=== PATIENT | female | born 1980 | race Caucasian/White ===

== ENCOUNTER 2019-02-11 20:45 | Emergency (ER) | payer BC, SELFPAY ==
[2019-02-11 20:52] VITALS: BP 152/98; PULSE 95; RESP 18; TEMP 37; O2SAT 95; BMI 30.7
--- NOTE | 2019-02-11 20:54 | XR_ITS ---
XR ankle LT min 3V HISTORY: Pain following injury ITS.REASON: FALL ORDERING PHYSICIAN: Edita Geiger APRN PATIENT AGE: 38 years Comparison: None FINDINGS: There is a nondisplaced avulsion fracture involving the tip of the lateral malleolus with overlying soft tissue swelling. Ankle mortise does not appear widened. IMPRESSION: Nondisplaced avulsion fracture tip of lateral malleolus with soft tissue swelling
--- NOTE | 2019-02-11 20:54 | XR_ITS ---
XR foot LT min 3V HISTORY: Posttraumatic pain ITS.REASON: FALL ORDERING PHYSICIAN: Edita Geiger APRN PATIENT AGE: 38 years COMPARISON: None FINDINGS: No fracture or dislocation. No lytic or blastic change. There is normal mineralization.. The joint spaces are well-preserved. No significant degenerative/arthritic changes. No erosive changes evident. IMPRESSION: Negative, no acute finding
--- NOTE | 2019-02-11 20:54 | XR_ITS ---
XR foot RT min 3V HISTORY: ITS.REASON: FALL ORDERING PHYSICIAN: Edita Geiger APRN PATIENT AGE: 38 years COMPARISON: None FINDINGS: No foot fracture is evident. There is a minimally displaced oblique distal fibular fracture and tiny avulsion fracture at the tip of the medial malleolus as described in the ankle report. IMPRESSION: Negative foot
--- NOTE | 2019-02-11 20:54 | XR_ITS ---
XR ankle RT min 3V HISTORY: Pain following injury ITS.REASON: FALL ORDERING PHYSICIAN: Edita Geiger APRN PATIENT AGE: 38 years Comparison: None FINDINGS: There is a minimally displaced oblique fracture involving the distal shaft of the fibula with the fracture extending medially at the level of the ankle joint. There is minimal lateral displacement of distal fracture fragment x 2 mm. In addition, there is nondisplaced avulsion fracture involving the tip of the medial malleolus. The ankle mortise is preserved. There is soft tissue swelling laterally. IMPRESSION: 1. Minimally displaced oblique fracture distal fibula. 2. Nondisplaced avulsion fracture tip of medial malleolus
[2019-02-11 21:12] VITALS: BP 152/98; PULSE 95; RESP 18; TEMP 37; O2SAT 95; BMI 30.7
--- NOTE | 2019-02-11 22:04 | HMH.EDUTC ---
[facility] [place] Clinical Impression: Ankle fracture Qualifiers: Encounter type: initial encounter Fracture type: closed Laterality: right Qualified Code(s): S82.891A - Other fracture of right lower leg, initial encounter for closed fracture Ankle sprain Qualifiers: Encounter type: initial encounter Involved ligament of ankle: unspecified ligament Laterality: left Qualified Code(s): S93.402A - Sprain of unspecified ligament of left ankle, initial encounter Disposition: Home, Self-Care Condition on Discharge: Good Instructions: How to Use Crutches, Acetaminophen (Alternative Therapy), Ankle Fracture, DI for Ankle Fracture, How To Perform RICE (Rest, Ice, Compress, Elevate), Ibuprofen Additional Instructions: *RICE, Rest the extremity, Ice 15-20 minutes 3-4 times daily, Compress- wear the jose wrap as discussed as much as possible to help reduce swelling and pain, Elevate the extremity when at rest *Jose wrap is for support and help control swelling, use it except in the shower. Be sure that is not to tight but not to loose either *Elevate when resting *Ibuprofen 600-800mg every 6-8 hours as needed for pain an inflammation. If need something more can take Tylenol in between doses of Ibuprofen to help Immediately follow up with your family doctor for new or worsening of symptoms, or no noticeable improvement over the next 3-5 days No weight bearing on right ankle Call Dr Richardson's office first thing in the morning for appointment he wants to see in his office tomorrow 02/12/19 Keep ankle elevated tonight Return if needed Straight to ER if any life threatening symptoms Referrals: Lolita Saunders [Primary Care Provider] - Wil Richardson MD [Staff Physician] - (Call first thing in the morning 02/12/19 for appointment advise them he wanted to see you in the clinic on 02/12/19) Time of Disposition: 22:20 Medical Decision Making - Marvel Inquiry Pt receiving controlled substance: No Marvel was queried for this patient: No Vital Signs: 02/11/19 20:52 02/11/19 21:12 02/11/19 22:19 Temperature 98.6 F 98.6 F 98.6 F Temperature Source Oral Oral Oral Pulse Rate 95 H Pulse Rate [Right] 95 H 95 H Respiratory Rate 18 18 18 Blood Pressure 152/98 H Blood Pressure [Right Arm] 152/98 H 152/98 H Blood Pressure Mean [Right Arm] 116 116 Blood Pressure Source Automatic Cuff Blood Pressure Source [Right Arm] Automatic Cuff Automatic Cuff Blood Pressure Position Sitting Blood Pressure Position [Right Arm] Sitting Sitting 02 Sat by Pulse Oximetry 95 95 Oxygen Delivery Method Room Air Room Air Room Air Orders (Tests/Meds): ED MEDICATIONS Discontinued Medications Generic Name Dose Route Start Last Admin Trade Name Hussain PRN Reason Stop Dose Admin Acetaminophen 650 mg 02/11/19 22:06 02/11/19 22:17 Acetaminophen 325mg Tab PO 02/11/19 22:07 650 mg ONCE ONE Administration ORDERS Category Date Time Status XR ankle LT min 3V Stat Exams 02/11/19 20:54 Taken XR ankle RT min 3V Stat Exams 02/11/19 20:54 Taken XR foot LT min 3V Stat Exams 02/11/19 20:54 Taken XR foot RT min 3V Stat Exams 02/11/19 20:54 Taken - Radiology Data #1 Image(s): Ankle, Foot/Toes, Other (bilateral ankle and foot xrays done) Image Reviewed: Yes I reviewed the patient's radiology image Preliminary Findings: No Fracture Seen Left ankle- negative ankle no acute Right ankle - Right Ankle fracture noted RIght foot no acute Left foot no acute - Physician Consults Physician Consulted: Saleem Time: 21:50 Reason -: Orthopedic Eval/Care Comment/Response: Spoke with Dr Richardson and he looked at xray and agreed with diagnoses of right ankle fracture Advised to place her in short leg splint, no weight bearing keep it elevated and call office first thing in the morning for appointment that he wants to see her tomorrow. - Reevaluation(s) Time: 22:20 Reevaluation #1: +pedal pulse and good color in toes +cap refill after placement
--- NOTE | 2019-02-11 22:09 | ED_ITS ---
[facility] – [place] Clinical Impression: Ankle fracture Qualifiers: Encounter type: initial encounter Fracture type: closed Laterality: right Qualified Code(s): S82.891A - Other fracture of right lower leg, initial encounter for closed fracture Ankle sprain Qualifiers: Encounter type: initial encounter Involved ligament of ankle: unspecified ligament Laterality: left Qualified Code(s): S93.402A - Sprain of unspecified ligament of left ankle, initial encounter Disposition: Home, Self-Care Condition on Discharge: Good Instructions: How to Use Crutches, Acetaminophen (Alternative Therapy), Ankle Fracture, DI for Ankle Fracture, How To Perform RICE (Rest, Ice, Compress, Elevate), Ibuprofen Additional Instructions: *RICE, Rest the extremity, Ice 15-20 minutes 3-4 times daily, Compress- wear the jose wrap as discussed as much as possible to help reduce swelling and pain, Elevate the extremity when at rest *Jose wrap is for support and help control swelling, use it except in the shower. Be sure that is not to tight but not to loose either *Elevate when resting *Ibuprofen 600-800mg every 6-8 hours as needed for pain an inflammation. If need something more can take Tylenol in between doses of Ibuprofen to help Immediately follow up with your family doctor for new or worsening of symptoms, or no noticeable improvement over the next 3-5 days No weight bearing on right ankle Call Dr Richardson's office first thing in the morning for appointment he wants to see in his office tomorrow 02/12/19 Keep ankle elevated tonight Return if needed Straight to ER if any life threatening symptoms Referrals: Lolita Saunders [Primary Care Provider] - Wil Richardson MD [Staff Physician] - (Call first thing in the morning 02/12/19 for appointment advise them he wanted to see you in the clinic on 02/12/19) Time of Disposition: 22:20 Medical Decision Making - Marvel Inquiry Pt receiving controlled substance: No Marvel was queried for this patient: No Vital Signs: 02/11/19 20:52 02/11/19 21:12 02/11/19 22:19 Temperature 98.6 F 98.6 F 98.6 F Temperature Source Oral Oral Oral Pulse Rate 95 H Pulse Rate [Right] 95 H 95 H Respiratory Rate 18 18 18 Blood Pressure 152/98 H Blood Pressure [Right Arm] 152/98 H 152/98 H Blood Pressure Mean [Right Arm] 116 116 Blood Pressure Source Automatic Cuff Blood Pressure Source [Right Arm] Automatic Cuff Automatic Cuff Blood Pressure Position Sitting Blood Pressure Position [Right Arm] Sitting Sitting 02 Sat by Pulse Oximetry 95 95 Oxygen Delivery Method Room Air Room Air Room Air Orders (Tests/Meds): ED MEDICATIONS Discontinued Medications Generic Name Dose Route Start Last Admin Trade Name Freq PRN Reason Stop Dose Admin Acetaminophen 650 mg 02/11/19 22:06 02/11/19 22:17 Acetaminophen 325mg Tab PO 02/11/19 22:07 650 mg ONCE ONE Administration ORDERS Category Date Time Status XR ankle LT min 3V Stat Exams 02/11/19 20:54 Taken XR ankle RT min 3V Stat Exams 02/11/19 20:54 Taken XR foot LT min 3V Stat Exams 02/11/19 20:54 Taken XR foot RT min 3V Stat Exams 02/11/19 20:54 Taken - Radiology Data #1 Image(s): Ankle, Foot/Toes, Other (bilateral ankle and foot xrays done) Image R
[2019-02-11 22:19] VITALS: BP 152/98; PULSE 95; RESP 18; TEMP 37; O2SAT 95
== END 2019-02-11 22:26 | disposition home or self-care (01) ==
PROVIDERS: Emergency Provider Nurse Practitioner; PCP Family Medicine
DX: S82.891A Other fracture of right lower leg, initial encounter for closed fracture (principal); S93.402A Sprain of unspecified ligament of left ankle, initial encounter; X50.1XXA Overexertion from prolonged static or awkward postures, initial encounter; Y92.814 Boat as the place of occurrence of the external cause; Z88.0 Allergy status to penicillin; G43.709 Chronic migraine without aura, not intractable, without status migrainosus
CPT/HCPCS: 29515; 73610; 73630; 99203

== ENCOUNTER → 2019-02-12 15:11 | Outpatient (CLI) | payer BC, SELFPAY ==
--- NOTE | 2019-02-12 15:16 | XR_ITS ---
XR tibia fibula RT 2V CLINICAL INDICATION: Pain following injury ITS.REASON: preop evaluation ORIF rt ankle ORDERING PHYSICIAN: Wil Richardson MD PATIENT AGE: 38 years Comparison: None FINDINGS: There is widening of the proximal fibular shaft which may be due to an old fracture. Please correlate with patient's history. Nondisplaced oblique fracture involves the distal fibula. Artifact is present from an overlying cast. IMPRESSION: 1. Nondisplaced fracture distal fibula. 2. Widening of the proximal fibular shaft suggesting an old fracture.
--- NOTE | 2019-02-12 15:16 | XR_ITS ---
XR knee RT 3V HISTORY: ITS.REASON: right knee pain, non weightbearing ORDERING PHYSICIAN: Wil Richardson MD PATIENT AGE: 38 years COMPARISON: None FINDINGS The knee joint has an unremarkable appearance. There is widening of the proximal shaft of the fibula. This could be due to an old fracture. This is well-circumscribed. Skeletal dysplasia is also a consideration. Please correlate with patient's history. IMPRESSION: 1. Negative knee. 2. Widening of the proximal shaft of the fibula which could be due to an old fracture or skeletal dysplasia
[2019-02-12 16:18] LABS: Basophils # 0.1 K/mm3 (0-0.2); Basophils % 0.6 % (0.1-2.0); Eosinophils # 0.2 K/mm3 (0.0-0.4); Eosinophils % 1.7 % (0.1-12.0); Hematocrit 42.7 % (37.0-47.0); Hemoglobin 14.8 g/dL (12.2-16.2); Lymphocytes % 22.2 % (10-50); Mean Corpuscular HGB Conc 34.7 g/dL (31.8-35.4); Mean Corpuscular Hemoglobin 33.1 pg (27.0-31.2); Mean Corpuscular Volume 95.4 fl (81-99); Mean Platelet Volume 7.7 fl (7.4-10.4); Monocytes # 0.6 K/mm3 (0.1-1.0); Monocytes % 6.3 % (1.7-9.3); Neutrophils # 6.2 K/mm3 (1.8-7.8); Neutrophils % 69.2 % (37.0-80.0); Platelet Count 254 K/mm3 (142-424); Red Blood Count 4.47 M/mm3 (4.20-5.40)
[2019-02-12 17:56] LABS: Anion Gap 13.9 mEq/L (5-15); Blood Urea Nitrogen 9 mg/dL (7-18); Calcium 8.8 mg/dL (8.5-10.1); Carbon Dioxide 28 mmol/L (21.0-32.0); Chloride 103 mmol/L (98-107); Creatinine,Serum 0.69 mg/dL (0.55-1.02); Estimated Glomerular Filt Rate 96 ml/min (>60); GFR (African American) 116 ML/MIN (>60); Glucose 95 mg/dL (74-106); Potassium 3.9 mmoL/L (3.5-5.1); Sodium 141 mmol/L (136-145)
== END ==
PROVIDERS: PCP Family Medicine; Visit Provider Orthopaedic Surgery
DX: Z01.818 Encounter for other preprocedural examination (principal); M25.561 Pain in right knee; S82.891A Other fracture of right lower leg, initial encounter for closed fracture; S93.402A Sprain of unspecified ligament of left ankle, initial encounter
CPT/HCPCS: 36415; 73562; 73590; 80048; 80053; 85025

== ENCOUNTER 2019-02-12 15:49 | Outpatient (RCR) | payer BC, SELFPAY | END 2019-02-12 16:00 | disposition home or self-care (01) | LOC: PT 15:49 | PROVIDERS: Visit Provider Orthopaedic Surgery | DX: S93.402A Sprain of unspecified ligament of left ankle, initial encounter (principal) | CPT/HCPCS: 97760 ==

== ENCOUNTER → 2019-02-22 15:04 | Outpatient (CLI) | payer BC, SELFPAY ==
--- NOTE | 2019-02-22 15:08 | XR_ITS ---
XR ankle RT min 3V HISTORY: ITS.REASON: 1 week follow up ORIF RT ankle, dos 02/15/19 ORDERING PHYSICIAN: Wil Richardson MD PATIENT AGE: 38 years Comparison: 02/15/2019 FINDINGS: Status post ORIF lateral malleolus fracture. Lateral bone plate with multiple screws are present in good position stabilizing the distal fibular fracture. IMPRESSION: Good alignment status post ORIF distal fibular fracture
== END ==
PROVIDERS: PCP Family Medicine; Visit Provider Orthopaedic Surgery
DX: S82.899A Other fracture of unspecified lower leg, initial encounter for closed fracture (principal); Z48.89 Encounter for other specified surgical aftercare
CPT/HCPCS: 73610

== ENCOUNTER 2019-02-22 15:21 | Outpatient (RCR) | payer BC, SELFPAY | END 2019-02-22 15:50 | disposition home or self-care (01) | LOC: PT 15:21 | PROVIDERS: Visit Provider Orthopaedic Surgery | DX: S82.891A Other fracture of right lower leg, initial encounter for closed fracture (principal) | CPT/HCPCS: 97760 ==

== ENCOUNTER → 2019-03-01 14:11 | Outpatient (CLI) | payer BC, SELFPAY ==
--- NOTE | 2019-03-01 14:21 | CT_ITS ---
CT angio chest HISTORY: Chest pain, elevated d-dimer, recent surgery, left-sided chest pain ITS.REASON: CP, ELEVATED DDIMER, RECENT SURGERY ORDERING PHYSICIAN: Lolita Saunders PATIENT AGE: 38 years COMPARISON: None TECHNIQUE: Contrast Used:70ml Optiray 350 Axial images were obtained. Sagittal, and coronal reformatted images are also generated and reviewed. All CT scans at the facility use one or more dose reduction, viz: automated exposure control, ma/kV adjustment per patient size (including targeted exams where dose is matched to indication, i.e. head), or iterative reconstruction technique. FINDINGS: No mediastinal or hilar mass is evident. There is mild degree of motion artifact which somewhat decreases fine detail. No evidence of aortic aneurysm or dissection. No obvious pulmonary embolus. Normal heart size. No evidence of pericardial effusion. There is a small left-sided pleural effusion. No lobar consolidation or collapse. Small noncalcified nodule present in the left lung base nonspecific for millimeters. No acute bony anomalies. IMPRESSION: 1. No evidence of pulmonary embolus or aortic aneurysm. 2. Small left pleural effusion.
== END ==
PROVIDERS: PCP Family Medicine; Visit Provider Family Medicine
DX: R07.9 Chest pain, unspecified (principal); R79.1 Abnormal coagulation profile
CPT/HCPCS: 71275; Q9967

== ENCOUNTER → 2019-03-09 08:28 | Outpatient (CLI) | payer BC, SELFPAY ==
--- NOTE | 2019-03-09 08:33 | XR_ITS ---
XR ankle RT min 3V HISTORY: ITS.REASON: having pain ORDERING PHYSICIAN: Wil Richardson MD PATIENT AGE: 38 years Comparison: None FINDINGS: 02/22/2019. The orthopedic hardware involving the fibula remains stable. The appearance of the osseous structures are stable without acute fracture. The alignment joint space appears normal. Soft tissues are unremarkable. Impression: No change.
== END ==
PROVIDERS: PCP Family Medicine; Visit Provider Orthopaedic Surgery
DX: S82.899A Other fracture of unspecified lower leg, initial encounter for closed fracture (principal)
CPT/HCPCS: 73610

== ENCOUNTER → 2019-04-10 08:26 | Outpatient (CLI) | payer BC, SELFPAY ==
--- NOTE | 2019-04-10 08:30 | XR_ITS ---
XR ankle RT min 3V HISTORY: Follow-up fracture/ORIF ITS.REASON: sp ORIF rt ankle, dos 02/15/19 ORDERING PHYSICIAN: Wil Richardson MD PATIENT AGE: 38 years Comparison: 03/09/2019. FINDINGS: No change status post ORIF of the distal fibula with a lateral bone plate and multiple screws. There is good alignment. Fracture line is still visible. IMPRESSION: No change status post ORIF distal fibula with good alignment
--- NOTE | 2019-04-10 09:53 | XR_ITS ---
XR ankle wt bearing LT min 3V HISTORY: ITS.REASON: pain, weakness ORDERING PHYSICIAN: Wil Richardson MD PATIENT AGE: 38 years Comparison: 02/11/2019 FINDINGS: Nondisplaced avulsion fracture once again noted involving the tip of the lateral malleolus. This is not significantly changed. Soft tissue swelling has improved. IMPRESSION: No change avulsion fracture at the tip of the lateral malleolus
== END ==
PROVIDERS: PCP Family Medicine; Visit Provider Orthopaedic Surgery
DX: S82.891A Other fracture of right lower leg, initial encounter for closed fracture (principal); M25.372 Other instability, left ankle; Z09 Encounter for follow-up examination after completed treatment for conditions other than malignant neoplasm
CPT/HCPCS: 73610

== ENCOUNTER → 2019-05-04 11:41 | Outpatient (CLI) | payer BC, SELFPAY ==
--- NOTE | 2019-05-04 11:45 | XR_ITS ---
PROCEDURE: XR ANKLE RT MIN 3V CLINICAL INDICATION: felt popping/ has pain Pain and bruising lateral side of foot and on top of ankle and foot COMPARISON: from 04/10/2019 from 04/10/2019 FINDINGS: Prior ORIF distal fibular fracture with lateral bone plate with good alignment. No change in the fracture line. No new abnormalities evident. IMPRESSION: No change prior ORIF distal fibula Dictated by: Brian Sharma MD 05/04/2019 12:04 Signed by: <Electronically signed by Brian Sharma MD in [place]> 05/04/2019 12:04
== END ==
PROVIDERS: PCP Family Medicine; Visit Provider Orthopaedic Surgery
DX: M25.571 Pain in right ankle and joints of right foot (principal); Z48.89 Encounter for other specified surgical aftercare
CPT/HCPCS: 73610

== ENCOUNTER → 2019-05-18 15:50 | Outpatient (CLI) | payer BC, SELFPAY | PROVIDERS: PCP Family Medicine; Visit Provider Family Medicine | DX: R40.0 Somnolence (principal) | CPT/HCPCS: G0399 ==

== ENCOUNTER → 2019-06-14 12:50 | Outpatient (CLI) | payer BC, SELFPAY ==
--- NOTE | 2019-06-14 12:52 | MR_ITS ---
PROCEDURE: MR ANKLE LT WO CON CLINICAL INDICATION: LEFT ANKLE PAIN COMPARISON: No exams were available for comparison TECHNIQUE: Routine multi-echo and multiplanar images are obtained. FINDINGS: Joint spaces, alignment and signal from the osseous marrow elements appear normal. There is a small amount of fluid in the tibiotalar joint. The anterior tibiofibular and anterior talofibular ligaments as well as the posterior talofibular ligament appear to be intact. The low signal of the anterior, lateral and medial tendons are intact. Ligaments appear intact. Achilles tendon is normal. There is minimal fluid partially surrounding the posterior tibialis tendon at the tarsal area. There is also some fluid adjacent to the flexor hallucis longus however this can communicate with the tibial talar joint 20 percent of the time and could account for the fluid. The soft tissues of the ankle are otherwise unremarkable. IMPRESSION: Small joint effusion. No definite ligament or tendon tear. Mild tenosynovitis of the posterior tibialis tendon. Dictated by: Garett Varela 06/14/2019 15:04 Electronically signed by Garett Varela in [place] 06/14/2019 15:05
== END ==
PROVIDERS: PCP Family Medicine; Visit Provider Orthopaedic Surgery
DX: M25.572 Pain in left ankle and joints of left foot (principal)
CPT/HCPCS: 73721

== ENCOUNTER → 2019-06-25 15:37 | Outpatient (CLI) | payer BC, SELFPAY ==
--- NOTE | 2019-06-25 15:43 | XR_ITS ---
PROCEDURE: XR ANKLE RT MIN 3V CLINICAL INDICATION: sp ORIF DISTAL fibula Follow-up fracture COMPARISON: Ankle R from 02/11/2019 Ankle L from 02/11/2019 XR ANKLE RT MIN 3V from 05/04/2019 FINDINGS: Bone plate is present of the distal fibula. There is a nondisplaced oblique fracture of the distal shaft of the fibula. That fracture is somewhat less apparent but still visible. Otherwise negative IMPRESSION: Healing nondisplaced fracture distal fibula status post ORIF Dictated by: Brian Sharma MD 06/25/2019 16:45 Electronically signed by Brian Sharma MD in [place] 06/25/2019 16:45
== END ==
PROVIDERS: PCP Family Medicine; Visit Provider Orthopaedic Surgery
DX: S82.891D Other fracture of right lower leg, subsequent encounter for closed fracture with routine healing (principal); Z09 Encounter for follow-up examination after completed treatment for conditions other than malignant neoplasm
CPT/HCPCS: 73610

== ENCOUNTER 2020-12-04 18:03 | Emergency (ER) | payer OTHER, SELFPAY ==
[2020-12-04 18:10] VITALS: BP 187/120; PULSE 102; RESP 22; TEMP 36.6; O2SAT 99; BMI 28.2
--- NOTE | 2020-12-04 18:45 | HMH.EDUTC ---
[facility] [place] Clinical Impression: Abdominal pain Qualifiers: Abdominal location: unspecified location Qualified Code(s): R10.9 - Unspecified abdominal pain Disposition: Still a Patient Condition on Discharge: Good Referrals: Lolita Saunders [Primary Care Provider] - Medical Decision Making - Marvel Inquiry Pt receiving controlled substance: No Marvel was queried for this patient: No Vital Signs: 12/04/20 18:10 Temperature 97.9 F Temperature Source Oral Pulse Rate [Right] 102 H Respiratory Rate 22 Blood Pressure [Right Arm] 187/120 H Blood Pressure Mean [Right Arm] 142 Blood Pressure Source [Right Arm] Automatic Cuff 02 Sat by Pulse Oximetry 99 Oxygen Delivery Method Room Air Orders (Tests/Meds): ORDERS Category Date Time Status Urine Culture Stat Micro 12/04/20 18:20 Received Medical Decision Narrative: Due to symptoms and history of kidney stones patient to transferred to ED for further work up and evaluation Patient agreed to transfer Called ED and spoke with staff and Patient transferred to room 8 [facility] [place] - General Stated complaint: Blood in urine, Pain Time Seen by Provider: 12/04/20 18:15 Mode of Arrival: Family Vehicle Source of Information: Patient Description of Symptoms (Recalled from Triage Doc. by RN): Pt c/o gross hematuria, dysuria, and urinary frequency with poor urine production that started about 12p today. Pt reports a h/o kidney stones and UTI. Pt states she feels like there is something blocking me from peeing and attempts to strain to get little urine out. Pt rates pain at 10/10 on TUGBOAT MATE and when attempting to urinate it is 10 plus . HEENT Symptoms (Recalled from RN notes): No Resp Symptoms (Recalled from RN notes): No Skin Symptoms (Recalled from RN notes): No MS Symptoms (Recalled from RN notes): No Functional Status (Recalled from RN notes): na - History of Present Illness Provider Complaint: Patient state that around noon today she started having pain and pressure in her lower abdomen and feeling like she was having urgency and frequency State that she thought she may be getting a UTI so she took an AZO and called her PCP and made appointment for tomorrow States that as the day went on it continued to get worse States that feels like something was blocking her from peeing State that she started feeling like she was peeing razorblades and passing blood clots States that she has a history of kidney stones and had to have it broken up States that pain is 10/10 and 10+ Statse that when she urinates she has to strain and felt like she was going to pass out - Related Data Home Medications Medication Instructions Recorded Confirmed Citalopram Hydrobromide 20 mg PO DAILY 02/11/19 06/28/19 [Citalopram HBr] SUMAtriptan succinate [Imitrex] 100 mg PO DIRECTED 02/11/19 06/28/19 estradiol 0.5 mg tablet 0.5 mg PO #30 tab 04/10/19 06/28/19 tizanidine 4 mg capsule 4 mg PO #30 cap 04/10/19 06/28/19 topiramate 100 mg capsule,extended PO #30 cap 04/10/19 06/28/19 release 24 hr hydroxychloroquine 200 mg tablet 200 mg PO DAILY 06/26/19 06/28/19 Infliximab [Remicade] 100 mg IV . 12/04/20 12/04/20 Meloxicam 7.5 mg PO DAILY 12/04/20 12/04/20 Allergies Allergy/AdvReac Type Severity Reaction Status Date / Time ertapenem [From INVANZ] Allergy Unknown Verified 06/28/19 15:47 erythromycin base Allergy Unknown Verified 06/28/19 15:47 [ERYTHROMYCIN BASE] Penicillins [PENICILLINS] Allergy Unknown Hives Verified 06/28/19 15:47 - Worker's Comp Is this a Worker's Comp case?: No [facility] History - Hepatitis A Screen Drug use history?: No High risk sexual behaviors?: No History of sexually transmitted infection?: No Currently employed?: No Childcare worker?: No Do you have indoor plumbing?: Yes Do you have electricity?: Yes Attestation statement:: This patient has been screened for Hepatitis A risk factors. I have reviewed the patient's past medical histo
[2020-12-04 18:55] VITALS: BP 177/117; PULSE 97; RESP 18; TEMP 36.6; O2SAT 96; BMI 28.2
--- NOTE | 2020-12-04 19:02 | CT_ITS ---
PROCEDURE: CT ABDOMEN PELVIS WO CON CLINICAL INDICATION: PAIN Lower abdominal pain and pressure, pelvic pain, passing blood clots, suprapubic pain and pressure, feeling bloated COMPARISON: CT ABDPELW/O CT ABD PELVIS W/O CONTRAST from 11/15/2012 TECHNIQUE: Axial images obtained with sagittal and coronal reformats. All CT scans at the facility use one or more dose reduction, viz: automated exposure control, ma/kV adjustment per patient size (including targeted exams where dose is matched to indication, i.e. head), or iterative reconstruction technique. FINDINGS: LOWER THORAX: Stable 4 mm nodule right lower lobe ABDOMEN & PELVIS: The liver, spleen, adrenal glands, pancreas has an unremarkable appearance. No renal or ureteral calculi. 2 cm hypodensity of the left kidney suggestive of a renal cyst. Mild amount of retained colonic feces. Prior appendectomy. Prior hysterectomy. No intestinal obstruction or free air. There is mild thickening of the urinary bladder wall with minimal haziness of the perivesical fat which may indicate cystitis. No acute bony findings. Prior fusion at L5-S1 with inter pedicular screws There is some minimal sub chondral sclerosis involving the right femoral head.. IMPRESSION: 1. Possible cystitis. 2. Mild amount of retained colonic feces. 3. Minimal subcortical sclerosis of the right femoral head raising the suspicion avascular necrosis. MRI may confirm. Dictated by: Brian Sharma MD 12/05/2020 05:05 Brian Sharma MD in [place] 12/05/2020 05:05
[2020-12-04 19:17] LABS: Apearance,Urine Clear (Clear); Color,Urine Dark Yellow (Yellow)
[2020-12-04 19:18] LABS: Bilirubin,Urine 3+ (Negative); Blood, Urine 1+ (Negative); Glucose,Urine (UA) 250 (Negative); Ketones,Urine 1+ (Negative); Protein,Urine 1+ (Negative); Specific Gravity, Urine 1.015 (1.005-1.030)
[2020-12-04 19:19] LABS: UTC Leukocyte Esterase,Urine 3+ (Negative); UTC Nitrate,Urine Positive (Negative); Urobilinogen,Urine >=8 EU/dl (0.2)
[2020-12-04 19:26] LABS: Basophils # 0.1 K/mm3 (0-0.2); Basophils % 0.4 % (0.1-2.0); Eosinophils # 0.2 K/mm3 (0.0-0.4); Eosinophils % 1.5 % (0.1-12.0); Hematocrit 44.7 % (37.0-47.0); Hemoglobin 15.2 g/dL (12.2-16.2); Lymphocytes # 3.6 K/mm3 (0.7-4.5); Lymphocytes % 26.1 % (10-50); Mean Corpuscular Hemoglobin 31.5 pg (27.0-31.2); Mean Corpuscular Volume 92.5 fl (81-99); Mean Platelet Volume 7.9 fl (7.4-10.4); Monocytes # 0.6 K/mm3 (0.1-1.0); Monocytes % 4.2 % (1.7-9.3); Neutrophils # 9.3 K/mm3 (1.8-7.8); Neutrophils % 67.8 % (37.0-80.0); Platelet Count 261 K/mm3 (142-424); Red Blood Count 4.83 M/mm3 (4.20-5.40); Red Cell Distribution Width 12.7 % (11.5-17.5); White Blood Count 13.7 K/mm3 (4.8-10.8)
[2020-12-04 19:30] LABS: Chloride 107 mmol/L (98-107); Potassium 3.4 mmoL/L (3.5-5.1); Sodium 140 mmol/L (136-145)
[2020-12-04 19:32] LABS: Alanine Aminotransferase 32 U/L (12-78); Aspartate Amino Transferase 27 U/L (14-36); Blood Urea Nitrogen 16 mg/dl (7-17); Creatinine Clearance Estimated 95 mL/min (50-200); Estimated Glomerular Filt Rate 62 ml/min (>60); GFR (African American) 75 ML/MIN (>60)
[2020-12-04 19:33] LABS: Albumin Level 5.1 g/dl (3.5-5.0); Albumin/Globulin Ratio 1.7 (1.1-1.8); Alkaline Phosphatase 83 U/L (38-126); Anion Gap 14.4 mEq/L (5-15); Bilirubin,Total 0.6 mg/dl (0.2-1.3); Calcium 9.7 mg/dl (8.4-10.2); Carbon Dioxide 22 mmol/L (22.0-30.0); Glucose 95 mg/dl (74-100); Total Protein,Serum 8.1 g/dl (6.3-8.2)
--- NOTE | 2020-12-04 20:42 | HMH.EDUROGF ---
ED Disposition Clinical Impression: Abdominal pain Qualifiers: Abdominal location: unspecified location Qualified Code(s): R10.9 - Unspecified abdominal pain Urinary tract infection Qualifiers: Urinary tract infection type: site unspecified Hematuria presence: without hematuria Qualified Code(s): N39.0 - Urinary tract infection, site not specified Disposition: Home, Self-Care Condition on Discharge: Good Instructions: DI for Urinary Tract Infection (UTI) Additional Instructions: call pcp for culture report and follow up Prescriptions: levoFLOXacin [Levaquin 500mg tab] 500 mg PO DAILY #7 tab Transmission Status: Pending to [facility] # Phenazopyridine HCl [Pyridium 200mg Tablet] 200 pow PO TID #6 tab Transmission Status: Pending to [facility] # Referrals: Lolita Saunders [Primary Care Provider] - - Critical Care Critical Care Time: No Attestation: On 12/04/20, the high probability of a clinically significant, sudden or life threatening deterioration of the following system(s) required my full and direct attention, intervention and personal management. The time I documented below is in addition to time spent performing reported procedures but includes the following listed in this critical care notation. Medical Decision Making - Medical Records Medical records reviewed: Yes: I reviewed the patient's medical records. - Marvel Inquiry Pt receiving controlled substance: No Vital Signs: 12/04/20 18:10 12/04/20 18:55 Temperature 97.9 F 98 F Temperature Source Oral Oral Pulse Rate [Right] 102 H 97 H Respiratory Rate 22 18 Blood Pressure [Right Arm] 187/120 H 177/117 H Blood Pressure Mean [Right Arm] 142 137 Blood Pressure Source [Right Arm] Automatic Cuff Blood Pressure Position [Right Arm] Sitting 02 Sat by Pulse Oximetry 99 96 Oxygen Delivery Method Room Air Room Air - Lab Data Lab results reviewed: Yes: I reviewed the patient's lab results. Lab Results 12/04/20 18:14: Urine Color Dark yellow, Urine Appearance Clear, Urine pH 5.0, Ur Specific [place] 1.015, Urine Protein 1+, Urine Glucose (UA) 250, Urine Ketones 1+, Urine Blood 1+, Urine Nitrate Positive A, Urine Bilirubin 3+ A, Urine Urobilinogen >=8, Ur Leukocyte Esterase 3+ A 12/04/20 19:20: WBC 13.7 H, RBC 4.83, Hgb 15.2, Hct 44.7, MCV 92.5, MCH 31.5 H, MCHC 34.0, RDW 12.7, Plt Count 261, MPV 7.9, Neut % (Auto) 67.8, Lymph % (Auto) 26.1, [place] % (Auto) 4.2, Eos % (Auto) 1.5, Baso % (Auto) 0.4, Neut # (Auto) 9.3 H, Lymph # (Auto) 3.6, [place] # (Auto) 0.6, Eos # (Auto) 0.2, Baso # (Auto) 0.1 12/04/20 19:20: Sodium 140, Potassium 3.4 L, Chloride 107, Carbon Dioxide 22, Anion Gap 14.4, BUN 16, Creatinine 1.00, Estimated Creat Clear 95, Estimated GFR 62, Est GFR ( Amer) 75, Glucose 95, Calcium 9.7, Total Bilirubin 0.6, AST 27, ALT 32, Alkaline Phosphatase 83, Total Protein 8.1, Albumin 5.1 H, Globulin 3.0, Albumin/Globulin Ratio 1.7 Result diagrams: 12/04/20 19:20 12/04/20 19:20 Orders (Tests/Meds): ED MEDICATIONS Generic Name Dose Route Start Last Admin Trade Name Freq PRN Reason Stop Dose Admin Sodium Chloride 1,000 mls @ 999 mls/hr 12/04/20 19:15 Sod Chlor 0.9% 1000ml Bag IV 12/04/20 20:15 .Q1H1M REGINA Levofloxacin/Dextrose 750 mg in 150 mls @ 100 mls/hr 12/04/20 20:40 Levofloxacin 750mg/150ml Premix IV 12/04/20 22:09 ONCE ONE Protocol Discontinued Medications Generic Name Dose Route Start Last Admin Trade Name Freq PRN Reason Stop Dose Admin Ketorolac Tromethamine 30 mg 12/04/20 19:04 12/04/20 19:26 Ketorolac 30mg/Ml Vial IV 12/04/20 19:05 30 mg ONCE ONE Administration Ondansetron HCl 4 mg 12/04/20 19:03 12/04/20 19:26 Ondansetron 4mg/2ml Vial IV 12/04/20 19:04 4 mg ONCE ONE Administration ORDERS Category Date Time Status CT abdomen pelvis wo con Stat Cat Scan 12/04/20 19:02 Taken Urinalysis and Microscopic Stat Lab 11/11
[2020-12-04 21:16] VITALS: BP 159/101; PULSE 71; RESP 16; TEMP 36.7; O2SAT 98
== END 2020-12-04 21:22 | disposition home or self-care (01) ==
LOC: UTC 18:10 → ER 18:52
PROVIDERS: Nurse Practitioner; Emergency Provider Emergency Medicine; PCP Family Medicine
DX: N30.01 Acute cystitis with hematuria (principal); K21.9 Gastro-esophageal reflux disease without esophagitis; F41.8 Other specified anxiety disorders; I10 Essential (primary) hypertension; Z88.0 Allergy status to penicillin; Z79.899 Other long term (current) drug therapy
CPT/HCPCS: 74176; 80053; 81003; 85025; 87086; 87088; 87186; 96365; 96367; 96375; 99283; J1956; J2405

== ENCOUNTER 2023-09-20 10:47 | Outpatient (CLI) | payer BC, SELFPAY ==
--- NOTE | 2023-09-20 10:57 | US_ITS ---
PROCEDURE: US TRANSVAGINAL CLINICAL INDICATION: R/O Ovarian Cysts COMPARISON: No exams were available for comparison FINDINGS: Transvaginal sonographic images of the pelvis were obtained. UTERUS: Surgically absent The vaginal cuff is intact. LEFT OVARY: 2.6 cmx1.4cmx1.6cm with a volume of 3ml. There is a small follicle measuring 1.1 cm x 0.7 cm. RIGHT OVARY: Surgically absent Left ovary is seen and appears normal. Doppler flow to the left ovary is seen. There is no fluid in the cul-de-sac. IMPRESSION: 1. The uterus is surgically absent. The vaginal cuff is intact. 2. The left ovary is visualized and has a small 1.1 cm follicle. 3. The right ovary is surgically absent. 4. No fluid in the cul-de-sac. Dictated by: Dalton Rodriguez MD 09/20/2023 15:04 Dalton Rodriguez MD in OV 09/20/2023 15:04
== END 2023-09-20 23:59 ==
LOC: RAD 10:48
PROVIDERS: PCP Family Medicine; Visit Provider Nurse Practitioner Obstetrics & Gynecology
DX: R10.32 Left lower quadrant pain (principal)
CPT/HCPCS: 76830

== ENCOUNTER 2023-12-02 07:49 | Emergency (ER) | payer BC, SELFPAY ==
[2023-12-02] VITALS (9 sets, daily range): BP systolic 125–151; BP diastolic 61–106; PULSE 69–102; RESP 15–20; TEMP 36.5–36.6; O2SAT 95–100; BMI 28.4
--- NOTE | 2023-12-02 08:08 | CT_ITS ---
FINAL REPORT CLINICAL HISTORY: left pleuritic cp, on estrogen FINDINGS: Thin section axial CT images of the chest were obtained with contrast. 3D reformatted images were also obtained. This study was performed with techniques to keep radiation doses as low as reasonably achievable (ALARA). Individualized dose reduction techniques using automated exposure control or adjustment of mA and/or kV according to the patient's size were employed. There is no evidence of pulmonary embolism. There is no evidence of thoracic aortic aneurysm or dissection. 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 This soft tissue measures up to 32 mm in transverse dimension. There is mild bibasilar atelectasis. Small left pleural effusion is identified. There is no pericardial effusion. Limited images of the upper abdomen are unremarkable. IMPRESSION: No evidence of pulmonary embolism. 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 Findings are worse than previous. This could be further evaluated with follow-up CT in 3-6 months. Reviewed, Interpreted and Dictated by Perry Ayers III, MD Transcribed by Tisha Gaspar Authenticated and [facility]
--- NOTE | 2023-12-02 08:08 | CT_ITS ---
FINAL REPORT TECHNIQUE: After the administration of intravenous contrast, axial images were obtained through the abdomen and pelvis by computed tomography. This study was performed with technique to keep radiation doses as low as reasonably achievable, (ALARA). Individualized dose reduction techniques using automated exposure control or adjustment of the MA and/or KV according to the patient's size were employed. CLINICAL HISTORY: LUQ abd pain, n/v COMPARISON: 11/14/2020 FINDINGS: Abdomen: Mild atelectasis is seen at the lung bases. The liver is normal in size and attenuation. Patient is status postcholecystectomy. The spleen is unremarkable. The adrenals are normal. The pancreas is unremarkable. There is an 18 mm cyst in the posterior left kidney. Several other, less than 1 cm left renal cysts are also seen. The kidneys otherwise enhance appropriately. The aorta is normal in caliber. There is no free fluid or adenopathy. Pelvis: There are postoperative changes of right hip arthroplasty. The appendix is not identified as likely surgically absent. The urinary bladder is unremarkable. There is a 27 mm left ovarian cyst. There is no free fluid or adenopathy. IMPRESSION: No acute intra-abdominal process. Renal cysts. 27 mm left ovarian cyst. Reviewed, Interpreted and Dictated by Perry Ayers III, MD Transcribed by Kenzie Singh Authenticated and [facility]
--- NOTE | 2023-12-02 08:09 | HMH.EDGENADL ---
Discharge Plan Disposition Patient Disposition: Still a Patient Prescriptions Prescriptions: New promethazine 25 mg tablet 25 mg PO TID PRN (Reason: nausea and vomiting) 5 Days Qty: 20 0RF No Action tramadol 50 mg tablet 50 mg PO BID PRN trazodone 100 mg tablet 100 mg PO sumatriptan succinate 100 mg tablet 100 mg PO .COMPLEX Qty: 14 1RF Rx Instructions: 100 mg PO; nitrofurantoin monohyd/m-cryst [Macrobid] 100 mg capsule 100 mg PO BID Qty: 10 6RF Rx Instructions: must administer with a meal/food phenazopyridine [Pyridium] 100 mg tablet 100 mg PO QPC Qty: 10 6RF tizanidine 4 mg capsule 4 mg PO HS PRN (Reason: back spams) Qty: 30 cholecalciferol (vitamin D3) 25 mcg (1,000 unit) capsule 25 mcg PO DAILY lisinopril 10 mg tablet 20 mg PO montelukast 10 mg tablet 10 mg PO DAILY Patient Comments: TAKE ONE TABLET BY MOUTH DAILY escitalopram oxalate [Lexapro] 10 mg tablet 10 mg PO DAILY Qty: 30 5RF estradiol [Estrace] 1 mg tablet 2 mg PO DAILY Qty: 30 11RF valacyclovir 1 gram tablet 1,000 mg PO DAILY Qty: 12 0RF Referrals Follow up/Referrals: Lolita Saunders [Primary Care Provider] - See instructions Activity Restrictions/Add. Instructions Additional Instructions/Restrictions: No emergent medical condition identified today. Incidental finding as stated below from the CT read from the radiologist. I recommend that you follow-up with your primary care doctor to discuss this. Additionally please follow-up with your GI doctor to discuss this abdominal discomfort that is been plaguing you for the last 5 to 6 weeks. 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 Findings are worse than previous. This could be further evaluated with follow-up CT in 3-6 months. Clinical Impressions Clinical Impression: Left upper quadrant abdominal pain Discharge ED Provider: Karin Cronin General Adult HPI General Chief complaint: PAIN Stated complaint: Pain in L side rib area Time Seen by Provider: 12/02/23 08:00 Mode of Arrival: Ambulatory Source of Information: Patient Limitations: No Limitations Description of Symptoms (Recalled from ER Triage Doc. by RN): Patient reports left rib pain for months. States it became constant approx 1 week ago and she has began vomiting. History of Present Illness HPI narrative: Patient is a 43-year-old female presenting today with left upper quadrant/left pleuritic chest pain that is intermittent for the last month and has been consistent and constant over the last week associate with nausea and vomiting. States the pain is also severe. She is on estradiol. No history of DVT or PE no lower extremity swelling hemoptysis cough fevers chills etc. She states she has a history of constipation but this pain is much worse than that has been in the past. No history of any colon pathology that she is aware of. She has a history of hemochromatosis, lupus, and rheumatoid arthritis. She is on rituximab infusions. Related Data Home Medications Medication Instructions Recorded Confirmed cholecalciferol (vitamin D3) 25 25 mcg PO DAILY 12/31/20 09/30/23 mcg (1,000 unit) capsule tizanidine 4 mg capsule 4 mg PO HS PRN back spams #30 caps 09/14/22 09/30/23 tramadol 50 mg tablet 50 mg PO BID PRN 09/14/22 09/30/23 trazodone 100 mg tablet 100 mg PO 09/14/22 09/30/23 montelukast 10 mg tablet 10 mg PO DAILY 04/19/23 09/30/23 lisinopril 10 mg tablet 20 mg PO 08/24/23 09/30/23 Previous Rx's Medication Instructions Recorded sumatriptan succinate 100 mg tablet 100 mg PO .COMPLEX #14 tabs 09/14/22 escitalopram oxalate 10 mg tablet 10 mg PO DAILY #30 tabs 08/24/23 (Lexapro) nitrofurantoin 100 mg PO BID #10 caps 09/29/23 monohydrate/macrocrystals 100 mg capsule (Macrobid) phenazopyridine 100 mg tablet 100 mg PO QPC 1 dose #10 tabs 09/29/23 (Pyridium) estradiol 1 mg tablet (Estrace) 2 mg (2 x 1 mg) PO DAILY #30 tabs 10/03/23 valacyclovir 1 gram tablet 1,000 mg PO DAILY #12 tabs 11/11/23 promethazine 25 mg tablet 25 mg PO TID PRN nausea and 12/02/23 vomiting 5 days #20 tabs Allergies Allergy/AdvReac Type Severity Reaction Status Date / Time ertapenem [From INVANZ] Allergy Unknown Verified 09/30/23 14:45 erythromycin base Allergy Unknown Verified 09/30/23 14:45 [ERYTHROMYCIN BASE] Penicillins [PENICILLINS] Allergy Unknown Hives Verified 09/30/23 14:45 [facility] Disclaimer: The information contained in this section may have been updated after the patient was seen, as this information can be updated by other users. Medical History Migraine Rheumatoid arthritis Right otitis media Surgical History History of ankle surgery History of right hip replacement History of tonsillectomy and adenoidectomy Hx of breast reduction, elective Hx of section Hx of discectomy Hx of hysterectomy Family History Other No significant family history Social History Smoking Status: Unknown if ever smoked alcohol intake: current substance use type: denies use current occupational status: employed Travel in the last 8 weeks: Inside the [place] household members: family housing: house current occupation: [employer] current occupational exposures/hazards: No caffeine: Yes ROS Obtained: Yes All systems reviewed & no additional complaints except as documented Physical Exam General General appearance: alert and in no apparent distress Chest Chest inspection: Present tenderness (Left inferior lateral rib wall margins are tender) Respiratory Respiratory exam: Present normal lung sounds bilaterally; Absent respiratory distress Cardiovascular Cardiovascular exam: Present regular rate Abdominal Exam Abdominal exam: Present soft and tenderness (Left upper quadrant tenderness palpation); Absent distention Back Exam Back exam: Present CVA tenderness (L) Neurological Exam Neurological exam: Present alert and oriented X3 Medical Decision Making Marvel Inquiry Pt receiving controlled substance: No Vital Signs: 12/02/23 07:50 12/02/23 08:25 12/02/23 09:54 Temperature 97.7 F Temperature Source Oral Pulse Rate 86 69 Pulse Rate [Radial] 102 H Respiratory Rate 18 Blood Pressure 125/87 125/61 Blood Pressure [Right Arm] 151/106 H Blood Pressure Mean 99 82 Blood Pressure Mean [Right Arm] 121 Blood Pressure Source [Right Arm] Automatic Cuff Blood Pressure Position [Right Arm] Sitting 02 Sat by Pulse Oximetry 100 95 99 Oxygen Delivery Method Room Air Room Air Room Air 12/02/23 10:00 12/02/23 10:15 12/02/23 10:30 Temperature Temperature Source Pulse Rate 70 70 69 Pulse Rate [Radial] Respiratory Rate Blood Pressure Blood Pressure [Right Arm] Blood Pressure Mean Blood Pressure Mean [Right Arm] Blood Pressure Source [Right Arm] Blood Pressure Position [Right Arm] 02 Sat by Pulse Oximetry 100 98 98 Oxygen Delivery Method 12/02/23 10:45 12/02/23 10:53 Temperature Temperature Source Pulse Rate 71 77 Pulse Rate [Radial] Respiratory Rate 20 Blood Pressure 126/70 Blood Pressure [Right Arm] Blood Pressure Mean 88 Blood Pressure Mean [Right Arm] Blood Pressure Source [Right Arm] Blood Pressure Position [Right Arm] 02 Sat by Pulse Oximetry 97 97 Oxygen Delivery Method Lab Data Lab results reviewed: Yes I reviewed the patient's lab results. Lab Results 12/02/23 08:03: WBC 7.9, RBC 4.89, Hgb 11.8 L, Hct 37.9, MCV 77.5 L, MCH 24.1 L, MCHC 31.1 L, RDW 18.0 H, Plt Count 360, MPV 8.3, Neut % (Auto) 67.5, Lymph % (Auto) 23.1, [place] % (Auto) 6.5, Eos % (Auto) 2.1, Baso % (Auto) 0.8, Neut # (Auto) 5.3, Lymph # (Auto) 1.8, [place] # (Auto) 0.5, Eos # (Auto) 0.2, Baso # (Auto) 0.1, Sodium 138, Potassium 4.1, Chloride 106, Carbon Dioxide 32 H, Anion Gap 4.1 L, BUN 11, Creatinine 0.80, Estimated Creat Clear 115, Estimated GFR 79, Est GFR ( Amer) 95, Glucose 95, Calcium 9.3, Total Bilirubin 0.4, AST 29, ALT 22, Alkaline Phosphatase 96, Total Protein 7.0, Albumin 4.3, Globulin 2.7, Albumin/Globulin Ratio 1.6, Lipase 79, Serum HCG, Qual Negative 12/02/23 08:13: Urine Color Yellow, Urine Appearance Cloudy, Urine pH 6.0, Ur Specific [place] >= 1.030, Urine Protein 2+, Urine Glucose (UA) Negative, Urine Ketones Negative, Urine Blood Negative, Urine Nitrate Negative, Urine Bilirubin 1+ A, Urine Urobilinogen 0.2, Ur Leukocyte Esterase Trace, Urine RBC None, Urine WBC Occasional, Ur Squamous Epith Cells 10-20, Urine Bacteria 1+, Urine Mucus Trace 12/02/23 08:03 12/02/23 08:03 Orders (Tests/Meds): ED MEDICATIONS Discontinued Medications Generic Name Dose Route Start Last Admin Trade Name Hussain PRN Reason Stop Dose Admin Lactated Ringer's 1,000 mls @ 999 mls/hr 12/02/23 08:15 12/02/23 08:23 Lactated Ringer's 1000 Ml Bag IV 12/02/23 09:15 999 mls/hr .Q1H1M REGINA Administration Iopamidol 100 ml 12/02/23 08:44 12/02/23 09:15 Iopamidol-370 (76%);100ml Bottle IV 12/02/23 08:45 100 ml ONCE ONE Administration Morphine Sulfate 4 mg 12/02/23 08:07 12/02/23 08:26 Morphine 4mg/Ml Syringe IV 12/02/23 08:08 4 mg ONCE ONE Administration Ondansetron HCl 4 mg 12/02/23 08:07 12/02/23 08:26 Ondansetron 4mg/2ml Vial IV 12/02/23 08:08 4 mg ONCE ONE Administration Promethazine HCl 12.5 mg 12/02/23 09:01 12/02/23 09:09 Promethazine Hcl 25mg/Ml 1ml Vial IV 12/02/23 09:02 12.5 mg ONCE ONE Administration Sodium Chloride 50 ml 12/02/23 08:44 12/02/23 09:14 0.9 % Sodium Chloride 50 Ml Vial IV 12/02/23 08:45 50 ml ONCE ONE Administration Sodium Chloride 10 ml 12/02/23 08:44 12/02/23 09:15 Sodium Chloride 0.9% 10ml Syr (Rad Only) IV 12/02/23 08:45 10 ml ONCE ONE Administration Sodium Chloride 25 ml 12/02/23 09:01 12/02/23 09:08 Sodium Chloride 0.9% 25ml Bag IV 12/02/23 09:02 25 ml ONCE ONE Administration ORDERS Category Date Time Status CT abdomen pelvis w con Stat Cat Scan 12/02/23 08:[address] angio chest PE protocol Stat Cat Scan 12/02/23 08:08 Taken CBC w/Auto Diff [Complete Blood Count Auto Diff] Stat Lab 12/02/23 08:03 Completed CMP [Comprehensive Metabolic Panel] Stat Lab 12/02/23 08:03 Completed HCG Qualitative, Serum Stat Lab 12/02/23 08:03 Completed Lipase Stat Lab 12/02/23 08:03 Completed UA [Urinalysis and Microscopic] Stat Lab 12/02/23 08:13 Completed Medical Decision Narrative: Patient is a 43-year-old female with a history of rheumatoid arthritis, lupus, hemochromatosis presenting today with left upper quadrant abdominal pain. Differential includes colitis, diverticulitis, constipation, splenic infarction, pulmonary infarction and pulmonary embolism, peripheral pneumonia, pyelo etc. Will get a contrasted CT scan of the patient's abdomen as well as a CT PE to further differentiate this. IV fluids pain medicine nausea medicine have been administered and will reassess. Reassessment 1056 patient did require an additional dose of Phenergan for nausea but her nausea is adequately controlled with this. A prescription of Phenergan has been sent to her pharmacy. Serial abdominal exams are benign CT scans performed which I personally interpreted and there is no evidence of a pulmonary embolism peripheral infarction pneumonia etc. There is also no evidence of an intra-abdominal pathology. 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 She is aware of this. She was discharged in stable and improved condition. She will follow-up with her GI doctor regarding this chronic abdominal discomfort that she is dealing with. No indication for admission or further surgical intervention from an emergency standpoint. Critical Care Critical Care Time Critical Care Time: No
[2023-12-02 08:18] LABS: Basophils # 0.1 K/mm3 (0-0.2); Basophils % 0.8 % (0.1-2.0); Eosinophils # 0.2 K/mm3 (0.0-0.4); Eosinophils % 2.1 % (0.1-12.0); Hematocrit 37.9 % (37.0-47.0); Hemoglobin 11.8 g/dL (12.2-16.2); Lymphocytes # 1.8 K/mm3 (0.7-4.5); Lymphocytes % 23.1 % (10-50); Mean Corpuscular HGB Conc 31.1 g/dL (31.8-35.4); Mean Corpuscular Hemoglobin 24.1 pg (27.0-31.2); Mean Corpuscular Volume 77.5 fl (81-99); Mean Platelet Volume 8.3 fl (7.4-10.4); Monocytes # 0.5 K/mm3 (0.1-1.0); Monocytes % 6.5 % (1.7-9.3); Neutrophils # 5.3 K/mm3 (1.8-7.8); Neutrophils % 67.5 % (37.0-80.0); Platelet Count 360 K/mm3 (142-424); Red Blood Count 4.89 M/mm3 (4.20-5.40); White Blood Count 7.9 K/mm3 (4.8-10.8)
[2023-12-02 08:20] LABS: Chloride 106 mmol/L (98-107); Potassium 4.1 mmoL/L (3.5-5.1); Sodium 138 mmol/L (136-145)
[2023-12-02 08:20] LABS: Microscopic, Urine URINE MICROSCOPIC (MICROSCOPIC)
[2023-12-02 08:22] LABS: Alanine Aminotransferase 22 U/L (12-78); Alkaline Phosphatase 96 U/L (38-126); Aspartate Amino Transferase 29 U/L (14-36); Bilirubin,Total 0.4 mg/dl (0.2-1.3); Blood Urea Nitrogen 11 mg/dl (7-17); Creatinine Clearance Estimated 115 mL/min (50-200); Estimated Glomerular Filt Rate 79 ml/min (>60); GFR (African American) 95 ML/MIN (>60)
[2023-12-02 08:23] LABS: Albumin Level 4.3 g/dl (3.5-5.0); Albumin/Globulin Ratio 1.6 (1.1-1.8); Anion Gap 4.1 mEq/L (5-15); Calcium 9.3 mg/dl (8.4-10.2); Carbon Dioxide 32 mmol/L (22.0-30.0); Globulin 2.7 g/dL (1.3-3.2); Glucose 95 mg/dl (74-100); Lipase 79 U/L (23-300)
[2023-12-02] MEDS: LACTATED RINGERS 1000ML 1,000 ML 999 ML IV (08:23)
[2023-12-02 08:24] LABS: HCG Qualitative, Serum Negative (Negative)
[2023-12-02 08:26] LABS: Appearance,Urine CLOUDY (Clear); Blood, Urine Negative (Negative); Color,Urine YELLOW (Yellow); Glucose,Urine (UA) Negative (Negative); Ketones,Urine Negative (Negative); Leukocyte Esterase,Urine TRACE (Negative); Nitrate,Urine Negative (Negative); Protein,Urine 2+ (Negative); Specific Gravity, Urine >= 1.030 (1.005-1.030); Urobilinogen,Urine 0.2 EU/dl (0.2)
[2023-12-02] MEDS: MORPHINE 4MG/ML SYRINGE 4 MG IV (08:26)
[2023-12-02] MEDS: ONDANSETRON 4MG/2ML VIAL 4 MG IV (08:26)
[2023-12-02 08:30] LABS: Bilirubin,Urine 1+ (Negative)
[2023-12-02 08:31] LABS: Bacteria,Urine 1+ /lpf; Mucus,Urine Trace /lpf; WBC,Urine Occasional #/hpf (0-3)
[2023-12-02] MEDS: SODIUM CHLORIDE 0.9% 25ML BAG 25 ML IV (09:08)
[2023-12-02] MEDS: PROMETHAZINE HCL 25MG/ML 1ML VIAL 12.5 MG IV (09:09)
[2023-12-02] MEDS: 0.9 % SODIUM CHLORIDE 50 ML VIAL IV (09:14)
[2023-12-02] MEDS: SODIUM CHLORIDE 0.9% 10ML SYR (RAD ONLY) 10 ML IV (09:15)
[2023-12-02] MEDS: IOPAMIDOL-370 (76%);100ML BOTTLE 100 ML IV (09:15)
--- NOTE | 2023-12-02 09:55 | PC.NURSE ---
rounded on pt at this time. provided pt with warm blanket, placed bp cuff and oxygen monitor on pt. no needs voiced at this time. call light within reach.
--- NOTE | 2023-12-02 10:15 | PC.NURSE ---
Called radiology to check status of ct reads. She is going to check and call ER back.
== END 2023-12-02 11:08 | disposition home or self-care (01) ==
PROVIDERS: Emergency Provider Student in an Organized Health Care Education/Training Program; PCP Family Medicine
DX: R10.12 Left upper quadrant pain (principal); R07.81 Pleurodynia; M06.9 Rheumatoid arthritis, unspecified; E83.119 Hemochromatosis, unspecified
CPT/HCPCS: 71275; 74177; 80053; 81001; 83690; 84703; 85025; 96361; 96374; 96375; 99285; J2405; Q9967

== ENCOUNTER 2024-02-28 14:47 | Outpatient (CLI) | payer BC, SELFPAY ==
--- NOTE | 2024-02-28 14:55 | MR_ITS ---
FINAL REPORT TECHNIQUE: Multiplanar MR without contrast CLINICAL HISTORY: BACK PAIN RIGHT SIDED PAIN NKI FINDINGS: Sagittal images show normal vertebral height. Alignment is normal. Marrow signal pattern is unremarkable. L1-2: Mild diffuse disc bulge. L2-3: Unremarkable L3-4: Mild diffuse disc bulge with mild bilateral neural foraminal narrowing. L4-5: Mild diffuse disc bulge and ligamentum flavum hypertrophy. Mild central canal stenosis. Moderate left and mild right neural foraminal narrowing. L5-S1: Status post laminectomy and fusion without canal stenosis. IMPRESSION: Degenerative disease, most pronounced at L4-5. Reviewed, Interpreted and Dictated by Leon Cardona MD Transcribed by Tisha Gaspar Authenticated and . [facility]
== END 2024-02-28 23:59 | disposition home or self-care (01) ==
LOC: RAD 14:47
PROVIDERS: PCP Family Medicine; Visit Provider Family Medicine
DX: M54.50 Low back pain, unspecified (principal)
CPT/HCPCS: 72148

== ENCOUNTER 2024-04-12 13:24 | Outpatient (POV) | payer BC, SELFPAY | END 2024-04-12 23:59 | disposition home or self-care (01) | LOC: SC 13:25 | PROVIDERS: Visit Provider Specialist/Technologist | DX: Z00.00 Encounter for general adult medical examination without abnormal findings (principal) ==

== ENCOUNTER 2024-08-30 08:59 | Emergency (ER) | payer BC, SELFPAY ==
[2024-08-30 09:00] VITALS: BP 171/109; PULSE 109; RESP 20; TEMP 36.2; O2SAT 99; BMI 29.0
--- NOTE | 2024-08-30 09:07 | PC.NURSE ---
DR ALAS AT BEDSIDE
--- NOTE | 2024-08-30 09:15 | CT_ITS ---
FINAL REPORT TECHNIQUE: Thin section axial CT with coronal and sagittal reconstruction without contrast. This study was performed with techniques to keep radiation doses as low as reasonably achievable, (ALARA). Individualized dose reduction techniques using automated exposure control or adjustment of mA and/or kV according to the patient''s size were employed. CLINICAL HISTORY: fall on pavement, facial/head injury COMPARISON: None FINDINGS: No fracture is seen. Alignment is normal. There is minimal degenerative disc disease in lower cervical spine. No obvious bony spinal canal stenosis is present. No gross disk abnormalities are seen. IMPRESSION: No fracture or malalignment Reviewed, Interpreted and Dictated by Leon Cardona MD Transcribed by Izzy Wall Authenticated and [facility]
--- NOTE | 2024-08-30 09:15 | CT_ITS ---
FINAL REPORT TECHNIQUE: Thin section axial CT with coronal reconstruction without IV contrast This study was performed with techniques to keep radiation doses as low as reasonably achievable, (ALARA). Individualized dose reduction techniques using automated exposure control or adjustment of mA and/or kV according to the patient's size were employed. CLINICAL HISTORY: fall on pavement, facial/head injury COMPARISON: None FINDINGS: CT FACIAL BONES: No fracture is present. The TMJs are intact. There is a mucous retention cyst in the inferior right maxillary sinus. There are postoperative changes of the maxillary sinuses bilaterally. There is mild nasal septal deviation to the left. IMPRESSION: No evidence of acute facial fracture Reviewed, Interpreted and Dictated by Leon Cardona MD Transcribed by Laurita Babcock Authenticated and [facility]
--- NOTE | 2024-08-30 09:15 | CT_ITS ---
FINAL REPORT TECHNIQUE: Noncontrast exam. Coronal and sagittal reconstructions were obtained and reviewed. This study was performed with techniques to keep radiation doses as low as reasonably achievable, (ALARA). Individualized dose reduction techniques using automated exposure control or adjustment of mA and/or kV according to the patient''s size were employed. CLINICAL HISTORY: fall on pavement, facial/head injury COMPARISON: None FINDINGS: No abnormal density is seen. Ventricles are normal. There is no hemorrhage. No mass effect is seen. Bone windows show no evidence of fracture. IMPRESSION: No acute findings Reviewed, Interpreted and Dictated by Leon Cardona MD Transcribed by Izzy Wall Authenticated and [facility]
--- NOTE | 2024-08-30 09:16 | ED_ITS ---
Discharge Plan Disposition Patient Disposition: Home, Self-Care Condition: Good Prescriptions Prescriptions: No Action tramadol 50 mg tablet 50 mg PO BID PRN trazodone 100 mg tablet 100 mg PO sumatriptan succinate 100 mg tablet 100 mg PO .COMPLEX Qty: 14 1RF Rx Instructions: 100 mg PO; tizanidine 4 mg capsule 4 mg PO HS PRN (Reason: back spams) Qty: 30 montelukast 10 mg tablet 10 mg PO DAILY Patient Comments: TAKE ONE TABLET BY MOUTH DAILY duloxetine 60 mg capsule,delayed release(DR/EC) 60 mg PO DAILY Patient Comments: TAKE 1 CAPSULE BY MOUTH DAILY omeprazole 40 mg capsule,delayed release(DR/EC) 40 mg PO BID Patient Comments: TAKE 1 CAPSULE BY MOUTH TWICE DAILY lisdexamfetamine [Vyvanse] 20 mg capsule 20 mg PO DAILY Patient Comments: TAKE 1 CAPSULE BY MOUTH DAILY cyanocobalamin (vitamin B-12) 1,000 mcg/mL solution 1,000 mcg IM WEEKLY Qulipta 60 mg tablet 60 mg PO DAILY Patient Comments: TAKE 1 TABLET BY MOUTH DAILY azelastine 137 mcg (0.1 %) spray,non-aerosol 2 spray intranasal BID Qty: 30 3RF Rx Instructions: administer into each nostril escitalopram oxalate 10 mg tablet See Rx Instructions .ROUTE .COMPLEX Qty: 30 5RF Dose Instruction: TAKE 1 TABLET BY MOUTH DAILY Rx Instructions: TAKE 1 TABLET BY MOUTH DAILY phenazopyridine [Pyridium] 100 mg tablet 100 mg PO QPC Qty: 10 6RF estradiol 2 mg tablet See Rx Instructions .ROUTE .COMPLEX Qty: 60 11RF Dose Instruction: TAKE 2 TABLETS BY MOUTH DAILY Rx Instructions: TAKE 2 TABLETS BY MOUTH DAILY Referrals Follow up/Referrals: Lolita Saunders [Primary Care Provider] - See instructions Nneka Mathis APRN [Nurse Practitioner] - See instructions Activity Restrictions/Add. Instructions Additional Instructions/Restrictions: You were evaluated in the emergency department today. Please follow-up closely with ENT. Call them to schedule an appointment. Please also follow-up very closely with your dentist given your tooth pain. Take Tylenol and ibuprofen every 4-6 hours as needed for pain at home. Please see attached concussion handout. Return to the emergency department for new or worsening symptoms. Clinical Impressions Clinical Impression: Contusion of nose, Nasal septal deviation, Abrasion of nose, Tooth pain, Concussion, Fall Stand Alone Forms Stand Alone Forms: Work/School Release Instructions Patient Instructions: DI for Concussion, DI for Nosebleed, DI for Abrasion Print Language Print Language: Urdu Discharge ED Provider: Samantha Shay General Adult HPI General Chief complaint: Fall Stated complaint: [id number] abrasion/pain to face from fall Time Seen by Provider: 08/30/24 09:03 Mode of Arrival: Ambulatory Source of Information: Patient Limitations: No Limitations Description of Symptoms (Recalled from ER Triage Doc. by RN): pt stepped in a hole and fell hitting pavement with face,nose,front teeth area. denies loc and doesnt take blood thinners History of Present Illness HPI narrative: This patient is a 44-year-old female without significant relevant past medical history presenting to the emergency department for evaluation with concern for facial and head pain. Patient states that she was walking outside when she stepped in a hole, falling forward and face planting on the pavement. She has minor abrasions to bilateral hands and knees, but her biggest concern is significant nose pain/swelling, front tooth pain, and severe headache. She was well prior to the fall. She did not lose consciousness and does not take any blood thinners. She is unsure when her last tetanus shot was but thinks she is probably up-to-date. No other concerns or complaints noted at this time. Related Data Home Medications ?Medication ?Instructions ?Recorded ?Confirmed tizanidine 4 mg capsule 4 mg PO HS PRN back spams #30 caps 09/14/22 03/21/24 tramadol 50 mg tablet 50 mg PO BID PRN 09/14/22 03/21/24 trazodone 100 mg tablet 100 mg PO 09/14/22 03/21/24 montelukast 10 mg tablet 10 mg PO DAILY 04/19/23 03/21/24 atogepant 60 mg tablet (Qulipta) 60 mg PO DAILY 03/21/24 03/21/24 cyanocobalamin (vitamin B-12) 1,000 mcg IM WEEKLY 03/21/24 03/21/24 1,000 mcg/mL injection solution duloxetine 60 mg capsule,delayed 60 mg PO DAILY 03/21/24 03/21/24 release lisdexamfetamine 20 mg capsule 20 mg PO DAILY 03/21/24 03/21/24 (Vyvanse) omeprazole 40 mg capsule,delayed 40 mg PO BID 03/21/24 03/21/24 release Previous Rx's ?Medication ?Instructions ?Recorded sumatriptan succinate 100 mg tablet 100 mg PO .COMPLEX #14 tabs 09/14/22 escitalopram oxalate 10 mg tablet See Rx Instructions .Route 03/08/24 .COMPLEX #30 tabs azelastine 137 mcg (0.1 %) nasal 2 spray intranasal BID #30 mL 03/21/24 spray phenazopyridine 100 mg tablet 100 mg PO QPC 1 dose #10 tabs 05/15/24 (Pyridium) estradiol 2 mg tablet See Rx Instructions .Route 07/02/24 .COMPLEX #60 tabs Allergies Allergy/AdvReac Type Severity Reaction Status Date / Time ertapenem (From INVANZ) Allergy Unknown Verified 04/12/24 13:53 erythromycin base Allergy Unknown Verified 04/12/24 13:53 (ERYTHROMYCIN BASE) Penicillins (PENICILLINS) Allergy Unknown Hives Verified 04/12/24 13:53 [facility] Disclaimer: The information contained in this section may have been updated after the patient was seen, as this information can be updated by other users. Medical History ETD (eustachian tube dysfunction) Normal hearing test Retraction of tympanic membrane of right ear Otalgia, right ear Right otitis media Rheumatoid arthritis Migraine Surgical History History of right hip replacement History of ankle surgery Hx of breast reduction, elective History of tonsillectomy and adenoidectomy Hx of discectomy Hx of section Hx of hysterectomy Family History Other No significant family history Social History Smoking Status: Never smoker alcohol intake: current alcohol intake frequency: holidays/special occasions only substance use type: denies use current occupational status: employed Travel in the last 8 weeks: Inside the [place] household members: family housing: house current occupation: [employer] current occupational exposures/hazards: No caffeine: Yes Have you lived/traveled outside [place] in past 30 days?: No Contact w/someone who lives/traveled outside [place] past 30 days?: No Exposure to someone with infectious disease in past 14 days?: No Do you have a fever (greater than 100.4 F or 38 C)?: No Have you tested positive for COVID-19: No Exposed to someone with COVID-19 in past 14 days?: No Do you have a sore throat?: No Do you have a cough?: No Do you have any weakness?: No Do you have any diarrhea?: No Are you experiencing any unusual bleeding?: No Do you have any muscle aches/pain?: No Do you have any abdominal pain?: No Are you experiencing loss of taste or smell?: No Other Medical History Have you received the Flu Vaccine for this season: No Have you received the Pneumonia Vaccine: No ROS Obtained: Yes All systems reviewed & no additional complaints except as documented Physical Exam General General appearance: alert and in no apparent distress Head Head exam: normocephalic Expanded Head Exam Head image: 2 1. nasal bridge swelling/bruising/tenderness 2. superficial abrasion Comment: No septal hematoma or significant deviation Eye Eye exam: Present normal appearance, PERRL and EOMI ENT ENT exam: Present normal oropharynx, mucous membranes moist, normal external ear exam and other (See nose exam above. No significant septal hematoma or deviation. No active bleeding from the nose. Tenderness to palpation of the maxillary central incisors without obvious instability) Neck Neck exam: Present normal inspection, full ROM and trachea midline; Absent tenderness Chest Chest inspection: Present normal inspection and symmetric chest wall rise; Absent tenderness Respiratory Respiratory exam: Present normal lung sounds bilaterally; Absent respiratory distress, wheezes, stridor or accessory muscle use Cardiovascular Cardiovascular exam: Present regular rate and normal rhythm Abdominal Exam Abdominal exam: Present soft; Absent distention, tenderness or guarding Extremities Exam Extremities exam: Present normal inspection, full ROM and normal capillary refill; Absent tenderness or edema Back Exam Back exam: Present normal inspection and full ROM; Absent tenderness Neurological Exam Neurological exam: Present alert, oriented X3, CN II-XII intact and normal gait; Absent motor sensory deficit Psychiatric Psychiatric exam: Present normal affect and normal mood Skin Skin exam: Present warm, dry and other (Superficial abrasions to hands and knees) Medical Decision Making Medical Records Medical records reviewed: Yes I reviewed the patient's medical records. Screening: Per USPSTF and CDC recommendations, given the prevalence of disease in our region, it is our hospital?s policy to screen for HIV and viral Hepatitis for all patients aged 18 and over and those with ongoing risk factors. Marvel Inquiry Pt receiving controlled substance: No Vital Signs: 08/30/24 09:00 08/30/24 09:39 08/30/24 10:00 Temperature 97.1 F L Temperature Source Oral Pulse Rate 89 82 Pulse Rate [Left Radial] 109 H Respiratory Rate 20 Blood Pressure 158/103 H 157/101 H Blood Pressure [Right Arm] 171/109 H Blood Pressure Mean [Right Arm] 129 02 Sat by Pulse Oximetry 99 100 100 Oxygen Delivery Method Room Air Room Air Room Air 08/30/24 10:38 08/30/24 11:00 08/30/24 11:43 Temperature 98.2 F Temperature Source Pulse Rate 87 85 88 Pulse Rate [Left Radial] Respiratory Rate 20 Blood Pressure 142/100 H 152/100 H 135/85 Blood Pressure [Right Arm] Blood Pressure Mean [Right Arm] 02 Sat by Pulse Oximetry 98 99 Oxygen Delivery Method Room Air Room Air Room Air Lab Data Lab results reviewed: Yes I reviewed the patient's lab results. Orders (Tests/Meds): ED MEDICATIONS Discontinued Medications Generic Name Dose Route Start Last Admin Trade Name Freq PRN Reason Stop Dose Admin Acetaminophen 1,000 mg 08/30/24 09:10 08/30/24 09:17 Acetaminophen 500mg Tab PO 08/30/24 09:11 1,000 mg ONCE ONE Administration Dexamethasone Sodium Phosphate 8 mg 08/30/24 10:26 08/30/24 10:34 Dexamethasone 4mg/Ml 1ml Vial IV 08/30/24 10:27 8 mg ONCE ONE Administration Diphenhydramine HCl 25 mg 08/30/24 10:26 08/30/24 10:35 Diphenhydramine 50mg/Ml Vial IV 08/30/24 10:27 25 mg ONCE ONE Administration Lactated Ringer's 1,000 mls @ 999 mls/hr 08/30/24 10:26 08/30/24 10:35 Lactated Ringer's 1000 Ml Bag IV 08/30/24 11:26 999 mls/hr .Q1H1M ONE Administration Ibuprofen 800 mg 08/30/24 09:10 08/30/24 09:17 Ibuprofen 400 Mg Tablet PO 08/30/24 09:11 800 mg ONCE ONE Administration Metoclopramide HCl 5 mg 08/30/24 10:26 08/30/24 10:35 Metoclopramide Hcl 10mg/2ml Vial IVP 08/30/24 10:27 5 mg ONCE ONE Administration Ondansetron HCl 4 mg 08/30/24 09:10 08/30/24 09:18 Ondansetron 4mg Odt SL 08/30/24 09:11 4 mg ONCE ONE Administration Tetanus/Reduced Diphtheria/Acell Pertussis 0.5 ml 08/30/24 09:15 08/30/24 09:35 Tet/Diphth/Pert-Adult 0.5ml Syringe IM 08/30/24 09:16 0.5 ml .ONCE ONE Administration ORDERS Category Date Time Status CT cervical spine wo con Stat Cat Scan 08/30/24 09:[address] facial bones wo con Stat Cat Scan 08/30/24 09:[address] head/brain wo con Stat Cat Scan 08/30/24 09:15 Completed Medical Decision Narrative: In summary, this patient is a 44-year-old female presenting to the Emergency Department for evaluation of facial/nose pain after a mechanical ground-level fall. Differential diagnoses considered include but are not limited to facial fracture, intracranial hemorrhage, laceration, abrasion. Ruling out the most morbid conditions drove assessment. On exam, the patient has nasal bridge tenderness, bruising, swelling with a superficial abrasion to the nose. No septal hematoma. She also has scattered superficial abrasions to hands and knees. She has tenderness to palpation of her central incisors without obvious instability. Workup included CT head, CT face, CT C-spine. Patient was given oral Tylenol, ibuprofen, Zofran, as well as Tdap booster. I independently interpreted CT scans prior to the radiologist read and noted deviated septum but no obvious displaced fracture or intracranial hemorrhage. Please see their read for final interpretation. On reassessment, patient states she is developing a migraine. Given this, she was given IV migraine cocktail. This significantly proved her headache and she is feeling a lot better. She has slightly deviated septum with no septal hematoma. At this time, I feel that she is appropriate for discharge home with close follow-up with ENT as well as her primary care provider and dentist. She was given strict return precautions and instructions for supportive management. Critical Care Critical Care Time Critical Care Time: No
[2024-08-30] MEDS: ACETAMINOPHEN 500MG TAB 1000 MG PO (09:17)
[2024-08-30] MEDS: IBUPROFEN 400 MG TABLET 800 MG PO (09:17)
[2024-08-30] MEDS: ONDANSETRON 4MG ODT 4 MG SL (09:18)
--- NOTE | 2024-08-30 09:30 | PC.NURSE ---
PT RETURNED FROM CT
[2024-08-30] MEDS: TET/DIPHTH/PERT-ADULT 0.5ML SYRINGE 0.5 ML IM (09:35)
[2024-08-30 09:39] VITALS: BP 158/103; PULSE 89; O2SAT 100
[2024-08-30 10:00] VITALS: BP 157/101; PULSE 82; O2SAT 100
--- NOTE | 2024-08-30 10:26 | PC.NURSE ---
at bedside. pt reports migraine to provider. IV and meds ordered at this time
[2024-08-30] MEDS: DEXAMETHASONE 4MG/ML 1ML VIAL 8 MG IV (10:34)
[2024-08-30] MEDS: METOCLOPRAMIDE HCL 10MG/2ML VIAL 5 MG IVP (10:35)
[2024-08-30] MEDS: diphenhydrAMINE 50MG/ML VIAL 25 MG IV (10:35)
[2024-08-30] MEDS: LACTATED RINGERS 1000ML 1,000 ML 999 ML IV (10:35)
[2024-08-30 10:38] VITALS: BP 142/100; PULSE 87; O2SAT 98
[2024-08-30 11:00] VITALS: BP 152/100; PULSE 85; O2SAT 99
--- NOTE | 2024-08-30 11:08 | PC.NURSE ---
Called radiology to ask for a disc on recent
[2024-08-30 11:43] VITALS: BP 135/85; PULSE 88; RESP 20; TEMP 36.8; O2SAT 98
== END 2024-08-30 11:44 | disposition home or self-care (01) ==
PROVIDERS: Emergency Provider Emergency Medicine; PCP Family Medicine
DX: S06.0XAA Concussion with loss of consciousness status unknown, initial encounter (principal); K08.89 Other specified disorders of teeth and supporting structures; S00.31XA Abrasion of nose, initial encounter; J34.2 Deviated nasal septum; S00.33XA Contusion of nose, initial encounter; Z23 Encounter for immunization; R51.9 Headache, unspecified; J34.89 Other specified disorders of nose and nasal sinuses; W01.198A Fall on same level from slipping, tripping and stumbling with subsequent striking against other object, initial encounter; Y93.89 Activity, other specified; Y92.9 Unspecified place or not applicable
CPT/HCPCS: 70450; 70486; 72125; 90471; 90715; 96361; 96374; 96375; 99285; J1100; J1200; J2765; J7120; Q0162

== ENCOUNTER 2024-10-04 10:54 | Outpatient (CLI) | payer BC, SELFPAY ==
--- NOTE | 2024-10-04 10:55 | MM_ITS ---
PROCEDURE INFORMATION: Exam: MG Bilateral Screening 3D Mammography Exam date and time: 10/04/2024 10:49 AM Age: 44 years old Clinical indication: Screening examination. TECHNIQUE: Imaging protocol: Bilateral Screening tomosynthesis and 2D mammography including computer-aided detection (CAD) when performed. COMPARISON: 1. MG SCREEN MAMMO W CAD BILAT 08/02/2023 5:33 PM 2. MG SCREEN MAMMO W CAD BILAT 07/28/2022 2:21 PM FINDINGS: MAMMOGRAPHY: Breast composition: There are scattered areas of fibroglandular density. Mass: None. Architectural distortion: Mild diffuse bilateral architectural distortion is due to prior reduction mammoplasty. Calcifications: No suspicious calcifications. Asymmetric density: None. Skin thickening: None. Axillary adenopathy: None. IMPRESSION: No mammographic evidence of malignancy. Annual screening is recommended unless otherwise clinically indicated. ASSESSMENT: BI-RADS Category 2: Benign.
== END 2024-10-04 23:59 | disposition home or self-care (01) ==
LOC: RAD 10:55
PROVIDERS: PCP Family Medicine; Visit Provider Nurse Practitioner Obstetrics & Gynecology
DX: Z12.31 Encounter for screening mammogram for malignant neoplasm of breast (principal)
CPT/HCPCS: 77063; 77067

== ENCOUNTER 2024-10-09 08:05 | Outpatient (CLI) | payer BC, SELFPAY ==
[2024-10-09 08:56] LABS: Basophils % 0.4 % (0.1-2.0); Eosinophils # 0.1 K/mm3 (0.0-0.4); Eosinophils % 0.9 % (0.1-12.0); Hematocrit 44.4 % (37.0-47.0); Hemoglobin 14.6 g/dL (12.2-16.2); Lymphocytes # 1.9 K/mm3 (0.7-4.5); Lymphocytes % 23.2 % (10-50); Mean Corpuscular HGB Conc 32.9 g/dL (31.8-35.4); Mean Corpuscular Hemoglobin 28.7 pg (27.0-31.2); Mean Corpuscular Volume 87.2 fl (81-99); Mean Platelet Volume 9.6 fl (7.4-10.4); Monocytes # 0.7 K/mm3 (0.1-1.0); Monocytes % 8.7 % (1.7-9.3); Neutrophils # 5.4 K/mm3 (1.8-7.8); Neutrophils % 66.6 % (37.0-80.0); Platelet Count 323 K/mm3 (142-424); Red Blood Count 5.09 M/mm3 (4.20-5.40); White Blood Count 8.1 K/mm3 (4.8-10.8)
[2024-10-09 10:03] LABS: Albumin Level 4.3 g/dl (3.5-5.0); Chloride 102 mmol/L (98-107); Sodium 138 mmol/L (136-145)
[2024-10-09 10:04] LABS: Potassium 4.7 mmoL/L (3.5-5.1)
[2024-10-09 10:06] LABS: Alanine Aminotransferase 24 U/L (12-78); Albumin/Globulin Ratio 1.8 (1.1-1.8); Alkaline Phosphatase 101 U/L (38-126); Anion Gap 12.7 mEq/L (5-15); Aspartate Amino Transferase 28 U/L (14-36); Bilirubin,Total 0.2 mg/dl (0.2-1.3); Blood Urea Nitrogen 21 mg/dl (7-17); Carbon Dioxide 28 mmol/L (22.0-30.0); Cholesterol 214 mg/dl (140-200); Estimated Glomerular Filt Rate 68 ml/min (>60); GFR (African American) 83 ML/MIN (>60); Globulin 2.4 g/dL (1.3-3.2); Total Protein,Serum 6.7 g/dl (6.3-8.2); Triglycerides 263 mg/dl (30-150); VLDL Cholesterol 53 mg/dL (0-40)
[2024-10-09 10:07] LABS: Calcium 9.2 mg/dl (8.4-10.2); Chol/HDL Ratio 2.9 (1-3.5); Glucose 80 mg/dl (74-100); HDL Cholesterol 74 mg/dl (40-60)
[2024-10-09 10:18] LABS: Direct LDL Cholesterol 97.17 mg/dL (100-129)
[2024-10-09 10:24] LABS: Free Thyroxine Index 3.4 ug/dL (5.93-13.13); T4 (Thyroxine) 13.1 ug/dl (5.53-11.0); Triiodothryronine (T3) Uptake 26 % (23.5-40.5)
[2024-10-09 10:38] LABS: Thyroid Stimulating Hormone 0.25 uIU/mL (0.465-4.68)
[2024-10-10 08:28] LABS: LH 18.4 mIU/mL (.)
== END 2024-10-09 23:59 | disposition home or self-care (01) ==
LOC: LAB 08:06
PROVIDERS: PCP Family Medicine; Visit Provider Nurse Practitioner Obstetrics & Gynecology
DX: R53.83 Other fatigue (principal); E28.319 Asymptomatic premature menopause
CPT/HCPCS: 36415; 80053; 80061; 82670; 83001; 83002; 84436; 84443; 84479; 85025

== ENCOUNTER 2024-10-25 09:00 | Outpatient (CLI) | payer BC, SELFPAY ==
--- NOTE | 2024-10-25 09:08 | CT_ITS ---
FINAL REPORT TECHNIQUE: Axial images of the right lower leg was obtained by computed tomography. Sagittal and coronal reformatted images were obtained and reviewed. This study was performed with techniques to keep radiation doses as low as reasonably achievable, (ALARA). Individualized dose reduction techniques using automated exposure control or adjustment of mA and/or kV according to the patient's size were employed. CLINICAL HISTORY: TIBIA/FIBULA PAIN F/U BONE LESION ON PROXIMAL FIBULA SEEN ON PRIOR XRAY FINDINGS: No fractures identified. There is a mildly expansile lesion of the proximal fibular shaft extending nearly 5 cm in length. The vast majority of the lesion is fatty in density. There is a partial smooth sclerotic margin along the upper and lower edges. There is no associated cortical destruction, periostitis, or soft tissue mass. The tibia is intact. IMPRESSION: Benign appearing partially expansile lesion of the proximal fibular shaft, may represent lipoma or hamartoma but is considered overall benign. Reviewed, Interpreted and Dictated by Leon Cardona MD Transcribed by Tisha Gaspar Authenticated and [facility]
[2024-10-25] MEDS: IOPAMIDOL-370 (76%);100ML BOTTLE 100 ML IV (09:30)
== END 2024-10-25 23:59 | disposition home or self-care (01) ==
LOC: RAD 09:01
PROVIDERS: PCP Family Medicine; Visit Provider Physician Assistant
DX: M79.661 Pain in right lower leg (principal)
CPT/HCPCS: 73701; Q9967

== ENCOUNTER 2024-11-22 19:22 | Emergency (ER) | payer BC, SELFPAY ==
[2024-11-22 19:53] VITALS: BP 156/115; PULSE 103; RESP 20; TEMP 36.9; O2SAT 95; BMI 30.7
[2024-11-22 20:16] LABS: Basophils # 0.1 K/mm3 (0-0.2); Basophils % 0.5 % (0.1-2.0); Eosinophils # 0.2 K/mm3 (0.0-0.4); Eosinophils % 1.3 % (0.1-12.0); Hematocrit 48.4 % (37.0-47.0); Hemoglobin 16.5 g/dL (12.2-16.2); Lymphocytes # 3.3 K/mm3 (0.7-4.5); Mean Corpuscular HGB Conc 34.1 g/dL (31.8-35.4); Mean Corpuscular Hemoglobin 29.9 pg (27.0-31.2); Mean Corpuscular Volume 87.7 fl (81-99); Mean Platelet Volume 9.6 fl (7.4-10.4); Monocytes # 1.1 K/mm3 (0.1-1.0); Monocytes % 8.4 % (1.7-9.3); Neutrophils % 63.6 % (37.0-80.0); Platelet Count 373 K/mm3 (142-424); Red Blood Count 5.52 M/mm3 (4.20-5.40); Red Cell Distribution Width 13.5 % (11.5-17.5); White Blood Count 12.6 K/mm3 (4.8-10.8)
[2024-11-22] MEDS: 0.9 % SODIUM CHLORIDE 1000ML 500 ML 999 ML IV (20:21)
[2024-11-22] MEDS: PROMETHAZINE HCL 25MG/ML 1ML VIAL 25 MG IV (20:21)
[2024-11-22] MEDS: SODIUM CHLORIDE 0.9% 25ML BAG 25 ML IV (20:21)
[2024-11-22 20:26] LABS: Alanine Aminotransferase 41 U/L (12-78); Albumin Level 5.3 g/dl (3.5-5.0); Albumin/Globulin Ratio 1.6 (1.1-1.8); Alkaline Phosphatase 93 U/L (38-126); Anion Gap 14.1 mEq/L (5-15); Aspartate Amino Transferase 46 U/L (14-36); Bilirubin,Total 0.5 mg/dl (0.2-1.3); Blood Urea Nitrogen 12 mg/dl (7-17); Calcium 9.8 mg/dl (8.4-10.2); Carbon Dioxide 30 mmol/L (22.0-30.0); Chloride 98 mmol/L (98-107); Creatinine Clearance Estimated 141 mL/min (50-200); Estimated Glomerular Filt Rate 91 ml/min (>60); GFR (African American) 111 ML/MIN (>60); Globulin 3.3 g/dL (1.3-3.2); Glucose 101 mg/dl (74-100); Potassium 4.1 mmoL/L (3.5-5.1); Sodium 138 mmol/L (136-145); Total Protein,Serum 8.6 g/dl (6.3-8.2)
[2024-11-22 20:30] LABS: Microscopic, Urine URINE MICROSCOPIC (MICROSCOPIC)
[2024-11-22] MEDS: KETOROLAC 30MG/ML VIAL 15 MG IV (20:39)
[2024-11-22 21:05] LABS: Appearance,Urine Clear (Clear); Blood, Urine Trace (Negative); Color,Urine Yellow (Yellow); Glucose,Urine (UA) Negative (Negative); Ketones,Urine Trace (Negative); Nitrate,Urine Negative (Negative); PH,Urine 5.5 (5.0-8.5); Protein,Urine 5.5 (Negative); Specific Gravity, Urine >= 1.030 (1.005-1.030)
[2024-11-22 21:06] LABS: Bilirubin,Urine 1+ (Negative); Leukocyte Esterase,Urine Negative (Negative); Urobilinogen,Urine 0.2 EU/dl (0.2)
--- NOTE | 2024-11-22 21:27 | HMH.EDGENADL ---
Discharge Plan Disposition Patient Disposition: Home, Self-Care Prescriptions Prescriptions: No Action tramadol 50 mg tablet 50 mg PO BID PRN sumatriptan succinate 100 mg tablet 100 mg PO .COMPLEX Qty: 14 1RF Rx Instructions: 100 mg PO; tizanidine 4 mg capsule 4 mg PO HS PRN (Reason: back spams) Qty: 30 lisdexamfetamine [Vyvanse] 40 mg capsule 40 mg PO DAILY Patient Comments: TAKE 1 CAPSULE BY MOUTH DAILY metformin 1,000 mg tablet 1,000 mg PO DAILY nortriptyline 25 mg capsule 25 mg PO HS Patient Comments: TAKE 1 CAPSULE BY MOUTH EVERY NIGHT spironolactone 50 mg tablet 50 mg PO DAILY Patient Comments: TAKE 1 TABLET BY MOUTH DAILY rizatriptan 10 mg tablet 10 mg PO PRN Patient Comments: TAKE 1 TABLET BY MOUTH AT ONSET OF HEADACHE. MAY REPEAT 1 TIME IN 2 HOURS. DO NOT TAKE MORE THAN 2 TABLET A DAY OR 8 TABLET A MONTH salicylic acid 2 % cream topical HS salicylic acid (bulk) Powder miscellaneous ondansetron 4 mg tablet,disintegrating 4 mg PO PRN Patient Comments: DISSOLVE 1 TABLET ON THE TONGUE EVERY 4 TO 6 HOURS NEEDED FOR NAUSEA lisinopril 10 mg tablet 10 mg PO DAILY Patient Comments: TAKE 1 TABLET BY MOUTH DAILY nitrofurantoin monohyd/m-cryst 100 mg capsule PO PRN Patient Comments: TAKE 1 CAPSULE BY MOUTH TWICE DAILY WITH FOOD/MEAL duloxetine 60 mg capsule,delayed release(DR/EC) 60 mg PO DAILY Patient Comments: TAKE 1 CAPSULE BY MOUTH DAILY omeprazole 40 mg capsule,delayed release(DR/EC) 40 mg PO BID Patient Comments: TAKE 1 CAPSULE BY MOUTH TWICE DAILY lisdexamfetamine [Vyvanse] 20 mg capsule 20 mg PO DAILY Patient Comments: TAKE 1 CAPSULE BY MOUTH DAILY cyanocobalamin (vitamin B-12) 1,000 mcg/mL solution 1,000 mcg IM WEEKLY Qulipta 60 mg tablet 60 mg PO DAILY Patient Comments: TAKE 1 TABLET BY MOUTH DAILY phenazopyridine [Pyridium] 100 mg tablet 100 mg PO QPC Qty: 10 6RF estradiol 2 mg tablet See Rx Instructions .ROUTE .COMPLEX Qty: 60 11RF Dose Instruction: TAKE 2 TABLETS BY MOUTH DAILY Rx Instructions: TAKE 2 TABLETS BY MOUTH DAILY Referrals Follow up/Referrals: Loliat Saunders [Primary Care Provider] - See instructions Activity Restrictions/Add. Instructions Additional Instructions/Restrictions: Today your evaluated in the emergency department for migraine. Please increase your fluid intake. You may continue to take acetaminophen and ibuprofen [id number] for symptomatic relief. Please follow-up with your PCP within 7 days. Please return to the ED for any worsening of your condition. The steroid given today will continue to work over the next 48 hours to ensure that the migraine does not come back. Clinical Impressions Clinical Impression: Migraine Instructions Patient Instructions: Migraine -- Adult Print Language Print Language: Turkmen Discharge ED Provider: Saravanan Bazzi General Adult HPI <Shayy Nguyen APRN - Last Filed: 11/22/24 22:01> General Chief complaint: Nausea/Vomiting/Diarrhea Stated complaint: Vomiting all day Time Seen by Provider: 11/22/24 19:52 Mode of Arrival: Ambulatory Source of Information: Patient Description of Symptoms (Recalled from ER Triage Doc. by RN): Pt presents to ED for vomiting and headache. Pt states she started vomiting last night and has not stopped. Pt did take a suppository and got no relief. Pt states the vomiting has now caused her to have a migraine. Pt states pain is 9/10. Pt is A&O*4 at this time. History of Present Illness HPI narrative: Patient is a 44-year-old female PMHx migraine, depression, RA who presents to the ED for migraine since yesterday with vomiting. Patient states this feels like her normal migraine, she has taken her amitriptyline, Imitrex and [id number]-[id number] medications without relief of headache. Related Data Home Medications ?Medication ?Instructions ?Recorded ?Confirmed tizanidine 4 mg capsule 4 mg PO HS PRN back spams #30 caps 09/14/22 09/19/24 tramadol 50 mg tablet 50 mg PO BID PRN 09/14/22 09/19/24 atogepant 60 mg tablet (Qulipta) 60 mg PO DAILY 03/21/24 09/19/24 cyanocobalamin (vitamin B-12) 1,000 mcg IM WEEKLY 03/21/24 09/19/24 1,000 mcg/mL injection solution duloxetine 60 mg capsule,delayed 60 mg PO DAILY 03/21/24 09/19/24 release lisdexamfetamine 20 mg capsule 20 mg PO DAILY 03/21/24 09/19/24 (Vyvanse) omeprazole 40 mg capsule,delayed 40 mg PO BID 03/21/24 09/19/24 release lisdexamfetamine 40 mg capsule 40 mg PO DAILY 09/19/24 09/19/24 (Vyvanse) lisinopril 10 mg tablet 10 mg PO DAILY 09/19/24 09/19/24 metformin 1,000 mg tablet 1,000 mg PO DAILY 09/19/24 09/19/24 nitrofurantoin PO PRN 09/19/24 09/19/24 monohydrate/macrocrystals 100 mg capsule nortriptyline 25 mg capsule 25 mg PO HS 09/19/24 09/19/24 ondansetron 4 mg disintegrating 4 mg PO PRN 09/19/24 09/19/24 tablet rizatriptan 10 mg tablet 10 mg PO PRN 09/19/24 09/19/24 salicylic acid (bulk) ea miscellaneous 09/19/24 09/19/24 salicylic acid 2 % topical cream applic topical HS 09/19/24 09/19/24 spironolactone 50 mg tablet 50 mg PO DAILY 09/19/24 09/19/24 Previous Rx's ?Medication ?Instructions ?Recorded sumatriptan succinate 100 mg tablet 100 mg PO .COMPLEX #14 tabs 09/14/22 phenazopyridine 100 mg tablet 100 mg PO QPC 1 dose #10 tabs 05/15/24 (Pyridium) estradiol 2 mg tablet See Rx Instructions .Route 07/02/24 .COMPLEX #60 tabs Allergies Allergy/AdvReac Type Severity Reaction Status Date / Time ertapenem (From INVANZ) Allergy Unknown Verified 09/19/24 08:57 erythromycin base Allergy Unknown Verified 09/19/24 08:57 (ERYTHROMYCIN BASE) Penicillins (PENICILLINS) Allergy Unknown Hives Verified 09/19/24 08:57 [facility] <Shayy Nguyen APRN - Last Filed: 11/22/24 22:01> [facility] Disclaimer: The information contained in this section may have been updated after the patient was seen, as this information can be updated by other users. Medical History (Updated 11/22/24 @ 22:46 by Saravanan Bazzi MD) ETD (eustachian tube dysfunction) Normal hearing test Retraction of tympanic membrane of right ear Otalgia, right ear Right otitis media Rheumatoid arthritis Migraine Surgical History (Updated 09/19/24 @ 09:13 by MARIANNE Walker) Previous back surgery History of right hip replacement History of ankle surgery Hx of breast reduction, elective History of tonsillectomy and adenoidectomy Hx of discectomy Hx of section Hx of hysterectomy Family History Other No significant family history Social History Smoking Status: Unknown if ever smoked alcohol intake: current alcohol intake frequency: holidays/special occasions only substance use type: denies use current occupational status: employed Travel in the last 8 weeks: Inside the [place] household members: family housing: house current occupation: [employer] current occupational exposures/hazards: No caffeine: Yes Have you lived/traveled outside [place] in past 30 days?: No Contact w/someone who lives/traveled outside [place] past 30 days?: No Exposure to someone with infectious disease in past 14 days?: No Do you have a fever (greater than 100.4 F or 38 C)?: No Have you tested positive for COVID-19: No Exposed to someone with COVID-19 in past 14 days?: No Do you have a sore throat?: No Do you have a cough?: No Do you have any weakness?: Yes Do you have any diarrhea?: No Are you experiencing any unusual bleeding?: No Do you have any muscle aches/pain?: No Do you have any abdominal pain?: Yes Are you experiencing loss of taste or smell?: No Other Medical History Have you received the Flu Vaccine for this season: No Have you received the Pneumonia Vaccine: No <Shayy Nguyen APRN - Last Filed: 11/22/24 22:01> ROS Obtained: Yes Systems reviewed as appropriate & no additional complaints except as documented Physical Exam <Shayy Nguyen APRN - Last Filed: 11/22/24 22:01> General General appearance: alert and in no apparent distress Head Head exam: atraumatic and normocephalic Eye Eye exam: Present normal appearance and PERRL ENT ENT exam: Present normal exam Neck Neck exam: Present normal inspection Chest Chest inspection: Present normal inspection and symmetric chest wall rise; Absent tenderness Respiratory Respiratory exam: Present normal lung sounds bilaterally Cardiovascular Cardiovascular exam: Present regular rate Abdominal Exam Abdominal exam: Present soft and normal bowel sounds; Absent tenderness Extremities Exam Extremities exam: Present normal inspection and full ROM Back Exam Back exam: Present normal inspection and full ROM Neurological Exam Neurological exam: Present alert and oriented X3 Psychiatric Psychiatric exam: Present normal affect and normal mood Skin Skin exam: Present warm and dry Medical Decision Making <Shayy Nguyen APRN - Last Filed: 11/22/24 22:01> Medical Records Screening: Per USPSTF and CDC recommendations, given the prevalence of disease in our region, it is our hospital?s policy to screen for HIV and viral Hepatitis for all patients aged 18 and over and those with ongoing risk factors. Marvel Inquiry Pt receiving controlled substance: No Marvel was queried for this patient: No Vital Signs: 11/22/24 19:53 11/22/24 21:31 Temperature 98.5 F Temperature Source Oral Pulse Rate 87 Pulse Rate [Left] 103 H Respiratory Rate 20 16 Blood Pressure 129/86 Blood Pressure [Right Arm] 156/115 H Blood Pressure Mean [Right Arm] 128 02 Sat by Pulse Oximetry 95 95 Oxygen Delivery Method Room Air Room Air Lab Data Lab Results 11/22/24 19:55: WBC 12.6 H, RBC 5.52 H, Hgb 16.5 H, Hct 48.4 H, MCV 87.7, MCH 29.9, MCHC 34.1, RDW 13.5, Plt Count 373, MPV 9.6, Neut % (Auto) 63.6, Lymph % (Auto) 26.0, [place] % (Auto) 8.4, Eos % (Auto) 1.3, Baso % (Auto) 0.5, Neut # (Auto) 8.0 H, Lymph # (Auto) 3.3, [place] # (Auto) 1.1 H, Eos # (Auto) 0.2, Baso # (Auto) 0.1, Sodium 138, Potassium 4.1, Chloride 98, Carbon Dioxide 30, Anion Gap 14.1, BUN 12, Creatinine 0.70, Estimated Creat Clear 141, Estimated GFR 91, Est GFR ( Amer) 111, Glucose 101 H, Calcium 9.8, Total Bilirubin 0.5, AST 46 H, ALT 41, Alkaline Phosphatase 93, Total Protein 8.6 H D, Albumin 5.3 H, Globulin 3.3 H, Albumin/Globulin Ratio 1.6, HCV Ab OLGA w/Rflx PCR Qn Negative, HIV Ag/Ab Combo Qual Negative 11/22/24 20:26: Urine Color Yellow, Urine Appearance Clear, Urine pH 5.5, Ur Specific Ulysses >= 1.030, Urine Protein 5.5, Urine Glucose (UA) Negative, Urine Ketones Trace, Urine Blood Trace A, Urine Nitrate Negative, Urine Bilirubin 1+ A, Urine Urobilinogen 0.2, Ur Leukocyte Esterase Negative, Urine RBC 5-10, Urine WBC 5-10, Ur Squamous Epith Cells 20-50, Urine Bacteria 3+, Urine Mucus 4+, Urine Yeast Occasional 11/22/24 19:55 11/22/24 19:55 Orders (Tests/Meds): ED MEDICATIONS Discontinued Medications Generic Name Dose Route Start Last Admin Trade Name Freq PRN Reason Stop Dose Admin Dexamethasone 10 mg 11/22/24 21:59 11/22/24 22:12 Dexamethasone 4mg Tablet PO 11/22/24 22:00 10 mg ONCE ONE Administration Haloperidol Lactate 2.5 mg 11/22/24 21:33 11/22/24 21:45 Haloperidol Lactate 5 Mg/Ml Vial IV 11/22/24 21:34 2.5 mg ONCE ONE Administration Sodium Chloride 500 mls @ 999 mls/hr 11/22/24 20:05 11/22/24 20:21 Sod Chlor 0.9% 1000ml Bag IV 11/22/24 20:35 999 mls/hr .Q31M ONE Administration Ketorolac Tromethamine 15 mg 11/22/24 20:35 11/22/24 20:39 Ketorolac 30mg/Ml Vial IV 11/22/24 20:36 15 mg ONCE ONE Administration Promethazine HCl 25 mg 11/22/24 20:05 11/22/24 20:21 Promethazine Hcl 25mg/Ml 1ml Vial IV 11/22/24 20:06 25 mg ONCE ONE Administration Sodium Chloride 25 ml 11/22/24 20:05 11/22/24 20:21 Sodium Chloride 0.9% 25ml Bag IV 11/22/24 20:06 25 ml ONCE ONE Administration ORDERS Category Date Time Status CBC w/Auto Diff [Complete Blood Count Auto Diff] Stat Lab 11/22/24 19:55 Completed CMP [Comprehensive Metabolic Panel] Stat Lab 11/22/24 19:55 Completed HIV Combo Stat Lab 11/22/24 19:55 Completed Hepatitis C Ab Qual. W/ RFX Stat Lab 11/22/24 19:55 Completed Urinalysis and Microscopic Stat Lab 11/22/24 20:26 Completed Urine Culture Stat Micro 11/22/24 20:26 Received Medical Decision Narrative: In summary, patient is a 44-year-old female PMHx migraine, depression, RA who presents to the ED for migraine since yesterday with vomiting. Patient states this feels like her normal migraine, she has taken her amitriptyline, Imitrex and gnvp-[id number] medications without relief of headache. Upon initial exam, patient is alert, oriented and cooperative. Patient is hemodynamically stable. Physical exam unremarkable. Normal neurological exam. Denies fever, posterior neck pain, chest pain, shortness of breath, abdominal pain, diarrhea, dysuria. Differential diagnosis includes migraine, infectious process, dehydration, vomiting, among others. Initial workup will be conducted with hematologic labs. CBC unremarkable for any leukocytosis, stable H&H. CMP unremarkable for any actionable abnormalities. Initial inventions include promethazine per patient's request as she states this initially helps her migraines more than other medications. Toradol 15 mg IV administered. Records reviewed, patient had a head CT on 08/30/2024 that was unremarkable for any acute findings. I considered head CT but deferred due to this is patient's normal migraine, resolved after medication administration, no neurodeficits. Care transferred to attending, Dr. Bazzi. <Saravanan Bazzi MD - Last Filed: 11/22/24 22:46> Vital Signs: 11/22/24 19:53 11/22/24 21:31 Temperature 98.5 F Temperature Source Oral Pulse Rate 87 Pulse Rate [Left] 103 H Respiratory Rate 20 16 Blood Pressure 129/86 Blood Pressure [Right Arm] 156/115 H Blood Pressure Mean [Right Arm] 128 02 Sat by Pulse Oximetry 95 95 Oxygen Delivery Method Room Air Room Air Lab Data Lab Results 11/22/24 19:55: WBC 12.6 H, RBC 5.52 H, Hgb 16.5 H, Hct 48.4 H, MCV 87.7, MCH 29.9, MCHC 34.1, RDW 13.5, Plt Count 373, MPV 9.6, Neut % (Auto) 63.6, Lymph % (Auto) 26.0, [place] % (Auto) 8.4, Eos % (Auto) 1.3, Baso % (Auto) 0.5, Neut # (Auto) 8.0 H, Lymph # (Auto) 3.3, [place] # (Auto) 1.1 H, Eos # (Auto) 0.2, Baso # (Auto) 0.1, Sodium 138, Potassium 4.1, Chloride 98, Carbon Dioxide 30, Anion Gap 14.1, BUN 12, Creatinine 0.70, Estimated Creat Clear 141, Estimated GFR 91, Est GFR ( Amer) 111, Glucose 101 H, Calcium 9.8, Total Bilirubin 0.5, AST 46 H, ALT 41, Alkaline Phosphatase 93, Total Protein 8.6 H D, Albumin 5.3 H, Globulin 3.3 H, Albumin/Globulin Ratio 1.6, HCV Ab OLGA w/Rflx PCR Qn Negative, HIV Ag/Ab Combo Qual Negative 11/22/24 20:26: Urine Color Yellow, Urine Appearance Clear, Urine pH 5.5, Ur Specific Ulysses >= 1.030, Urine Protein 5.5, Urine Glucose (UA) Negative, Urine Ketones Trace, Urine Blood Trace A, Urine Nitrate Negative, Urine Bilirubin 1+ A, Urine Urobilinogen 0.2, Ur Leukocyte Esterase Negative, Urine RBC 5-10, Urine WBC 5-10, Ur Squamous Epith Cells 20-50, Urine Bacteria 3+, Urine Mucus 4+, Urine Yeast Occasional Orders (Tests/Meds): ED MEDICATIONS Discontinued Medications Generic Name Dose Route Start Last Admin Trade Name Christopherq PRN Reason Stop Dose Admin Dexamethasone 10 mg 11/22/24 21:59 11/22/24 22:12 Dexamethasone 4mg Tablet PO 11/22/24 22:00 10 mg ONCE ONE Administration Haloperidol Lactate 2.5 mg 11/22/24 21:33 11/22/24 21:45 Haloperidol Lactate 5 Mg/Ml Vial IV 11/22/24 21:34 2.5 mg ONCE ONE Administration Sodium Chloride 500 mls @ 999 mls/hr 11/22/24 20:05 11/22/24 20:21 Sod Chlor 0.9% 1000ml Bag IV 11/22/24 20:35 999 mls/hr .Q31M ONE Administration Ketorolac Tromethamine 15 mg 11/22/24 20:35 11/22/24 20:39 Ketorolac 30mg/Ml Vial IV 11/22/24 20:36 15 mg ONCE ONE Administration Promethazine HCl 25 mg 11/22/24 20:05 11/22/24 20:21 Promethazine Hcl 25mg/Ml 1ml Vial IV 11/22/24 20:06 25 mg ONCE ONE Administration Sodium Chloride 25 ml 11/22/24 20:05 11/22/24 20:21 Sodium Chloride 0.9% 25ml Bag IV 11/22/24 20:06 25 ml ONCE ONE Administration ORDERS Category Date Time Status CBC w/Auto Diff [Complete Blood Count Auto Diff] Stat Lab 11/22/24 19:55 Completed CMP [Comprehensive Metabolic Panel] Stat Lab 11/22/24 19: Completed HIV Combo Stat Lab 11/22/24 19:55 Completed Hepatitis C Ab Qual. W/ RFX Stat Lab 11/22/24 19:55 Completed Urinalysis and Microscopic Stat Lab 11/22/24 20:26 Completed Urine Culture Stat Micro 11/22/24 20:26 Received Medical Decision Narrative: In summary, patient is a 44-year-old female PMHx migraine, depression, RA who presents to the ED for migraine since yesterday with vomiting. Patient states this feels like her normal migraine, she has taken her amitriptyline, Imitrex and [id number] medications without relief of headache. Upon initial exam, patient is alert, oriented and cooperative. Patient is hemodynamically stable. Physical exam unremarkable. Normal neurological exam. Denies fever, posterior neck pain, chest pain, shortness of breath, abdominal pain, diarrhea, dysuria. Differential diagnosis includes migraine, infectious process, dehydration, vomiting, among others. Initial workup will be conducted with hematologic labs. CBC unremarkable for any leukocytosis, stable H&H. CMP unremarkable for any actionable abnormalities. Initial inventions include promethazine per patient's request as she states this initially helps her migraines more than other medications. Toradol 15 mg IV administered. Records reviewed, patient had a head CT on 08/30/2024 that was unremarkable for any acute findings. I considered head CT but deferred due to this is patient's normal migraine, resolved after medication administration, no neurodeficits. Care transferred to attending, Dr. Bazzi. Rose Mary: I assumed primary responsibility for this patient after signout from DATA DEVELOPER. Reevaluation, patient states her headache is much better she is ready to go home. Because patient at baseline without signs or symptoms of clinical decompensation, deemed appropriate for discharge. Results were relayed to patient who voiced understanding and were agreeable to outpatient management and follow up. I discussed my clinical impression with patient and answered all questions. At this time, the evidence for any other entities in the differential is insufficient to warrant any further testing or ED observation. This was explained as well. Advisory was given that persistent or worsening symptoms require further evaluation. I confirmed the understanding of this discussion. Critical Care <Shayy Nguyen, CURATORIAL ASSISTANT - Last Filed: 11/22/24 22:01> Critical Care Time Critical Care Time: No
[2024-11-22 21:31] VITALS: BP 129/86; PULSE 87; RESP 16; O2SAT 95
[2024-11-22] MEDS: HALOPERIDOL LACTATE 5 MG/ML VIAL 2.5 MG IV (21:45)
[2024-11-22 22:10] LABS: Bacteria,Urine 3+ /lpf; Mucus,Urine 4+ /lpf; Squamous Epithelial Cell,Urine 20-50 #/hpf (0-5); Yeast,Urine Occasional /lpf
[2024-11-22] MEDS: DEXAMETHASONE 4MG TABLET 10 MG PO (22:12)
[2024-11-22 22:33] LABS: HIV Combo NEGATIVE (Negative)
[2024-11-22 22:42] LABS: Hepatitis C Ab Qual. W/ RFX NEGATIVE (Negative)
[2024-11-22 22:54] VITALS: BP 138/84; PULSE 93; RESP 18; TEMP 36.9; O2SAT 95
== END 2024-11-22 22:56 | disposition home or self-care (01) ==
PROVIDERS: Nurse Practitioner; Emergency Provider Emergency Medicine; PCP Family Medicine
DX: G43.909 Migraine, unspecified, not intractable, without status migrainosus (principal); R11.10 Vomiting, unspecified
CPT/HCPCS: 80053; 81001; 85025; 86803; 87086; 87389; 96365; 96374; 96375; 99283; J1630; J1885; J2550; J7030; J8540

== ENCOUNTER 2025-06-04 07:40 | Outpatient (RCR) | payer BC, SELFPAY | END 2025-06-04 23:59 | disposition home or self-care (01) | LOC: PT 07:40 | PROVIDERS: PCP Family Medicine; Visit Provider Physician Assistant Medical | DX: M53.3 Sacrococcygeal disorders, not elsewhere classified (principal) | CPT/HCPCS: 97162 ==

== ENCOUNTER 2025-06-24 08:48 | Outpatient (RCR) | payer BC, SELFPAY | END 2025-06-24 23:59 | disposition home or self-care (01) | LOC: PT 08:48 | PROVIDERS: PCP Family Medicine; Visit Provider Physician Assistant Medical | DX: M53.3 Sacrococcygeal disorders, not elsewhere classified (principal) | CPT/HCPCS: 97014; 97110; G0283 ==

== ENCOUNTER 2025-08-15 10:20 | Outpatient (CLI) | payer BC, SELFPAY ==
--- OUTSIDE RECORDS SUMMARY | 2025-04-02 18:12 | XMS_ITS | Encounter Summary ---
[facility] Address [address] [place] [address] Care Team Providers Care Parts Consultant Name Role Phone Lloita Saunders DO Primary Care Provider [phone] Reason for Referral * Hospital - Outpatient (Routine) - Closed Specialty Diagnoses / Procedures Referred By Kenn purvis Referred To Contact Sleep Medicine Diagnoses Obstructive sleep apnea, adult Excessive daytime sleepiness Periodic limb movement disorder (PLMD) Procedures Polysomnography 4 or More Parameters Shahzad Prieto MD [address] [place] [address] Phone: tel: fax: [facility] [address] [address] Phone: tel: fax: Referral ID Status Reason Start Date Expiration Date Visits Re quested Visits Authorized [id number] Closed 11/12/2024 04/11/2025 1 1 Reason for Visit * Hospital - Outpatient (Routine) - Closed Specialty Diagnoses / Procedures Referred By Contac t Referred To Contact Sleep Medicine Diagnoses Obstructive sleep apnea, adult Excessive daytime sleepiness Periodic limb movement disorder (PLMD) Procedures Polysomnography 4 or More Parameters Shahzad Prieto MD [address] [place] [address] Phone: tel: fax: [facility] [address] [facility] [address] [place] [address] Phone: tel: fax: Referral ID Status Reason Start Date Expiration Date Visits Re quested Visits Authorized [id number] Closed 11/12/2024 04/11/2025 1 1 Encounter Details Date Type Department Care Team (Late st Contact Info) Description 04/02/2025 7:12 PM EDT Hospital Encounter [facility] [address] [facility] [address] [place] [address] Shahzad Prieto MD [address] [place] [address] Obstructive sleep apnea, adult; Excessive daytime sleepiness; Periodic limb movement disorder (PLMD) Social History Tobacco Use Types Packs/Day Years Used Date Smoking Tobacco: Never Passive Smoke Exposure: Past Smokeless Tobacco: Never Alcohol Use Standard Drinks/Week Comments Yes 1 (1 standard drink = 0.6 oz pur e alcohol) 2 time a month AUDIT-C Answer Date Recorded Q1: How often do you have a drink containing alcohol? Never 10/20/2022 Q2: How many drinks containi ng alcohol do you have on a typical day when you are drinking? Patient does not drink Q3: How often do you have si x or more drinks on one occasion? Never 10/20/2022 Abuse Screen Answer Date Recorded Feels Unsafe at Home or Work/School no 12/25/2022 Feels Threatened by Someone no 12/11 Does Anyone Try to Keep You From Having Contact with Others or Doing Things Outside Your Home? no 12/25/2022 Physical Signs of Abuse Present no 12/25/2022 Housing Stability Answer Date Recorded Current Living Arrangements home 02/2023 Potentially Unsafe Housing Conditions Not on spenser e 12/16/2022 Disabilities Answer Date Recorded Difficulty Concentrating, Remembering or Making Decisions no 12/16/2022 Difficulty Managing Errands Independently no 12/16/2022 Comments No Sex and Gender Information Value Date Recorded Sex Assigned at Female 12/07/2024 3:55 PM EDT Legal Sex Female 12:01 PM EDT Gender Identity Not on file Sexual Orientation Straight 12/07/2024 3: 55 PM EDT documented as of this encounter Last Filed Vital Signs Vital Sign Reading Time Taken Comments Blood Pressure 185/97 04/02/2025 7:18 PM EDT Pulse 102 04/02/2025 7:18 PM EDT Temperature - - Respiratory Rate - - Oxygen Saturation 98% 04/02/2025 7:18 PM EDT Inhaled Oxygen Concentration - - Weight 94.3 kg (208 lb) 04/02/2025 7:18 PM EDT Height 167.6 cm (5' 5.98 ) 04/02/2025 7:18 PM ED T Body Mass Index 33.59 04/02/2025 7:18 PM EDT documented in this encounter Plan of Treatment Upcoming Encounters Date Type Department Care Team (Late st Contact Info) Description 08/29/2025 12:00 PM EST Office Visit [facility] SLEEP MEDICINE [address] [facility] [address] [place] [id number] Rafael Corral, DELIVERY DIRECTOR [address] [place] [address] 09/20/2025 9:15 AM EST Procedure visit [facility] NEUROLOGY [address] [facility] [address] [place] [phone] Tiffanie Davison MD [address] [facility] [address] [place] [address] 12/11/2025 10:15 AM EDT Office Visit [facility] RHEUMATOLOGY [address] [place] [address] Arlen Torres, DELIVERY DIRECTOR [address] [address] 04/16/2026 9:45 AM EDT Office Visit [facility] RHEUMATOLOGY [address] [place] [address] Terrence Chapa, [address] [facility] [address] [place] [address] documented as of this encounter Procedures Procedure Name Priority Date/Time Associated Diagnosis Comments NPSG Routine 04/02/2025 11:54 PM EDT Obstructive sleep apnea, adult Excessive daytime sleepiness Periodic limb movement disorder (PLMD) documented in this encounter Results * NPSG (04/02/2025 11:54 PM EDT) Narrative SLEEP MEDICINE - 04/07/2025 4:53 PM EDT Table formatting from the original result was not included. Polysomnography Report Patient Name: Hanna Bourgeois Interpreting Physician: Shahzad Prieto MD Date of : 1980 Referring Provider: Shahzad Prieto,* Primary Care Provider: Lolita Saunders DO Date of Study: 04/02/2025 Clinical Information 44-year-old female referred by Dr. Davison. She has significant longstanding daytime somnolence/nonrestorative sleep. Her Unity Sleepiness Scale is markedly elevated. This occurred despite a long total sleep time but she has frequent arousals throughout the night that are poorly defined. She does have significant back issues as well as leg pain and cramping. She could have PLMD. She also snores and has a class III airway and could have obstructive sleep apnea though she tells me she had a negative home sleep apnea test 3 years ago performed in [place]. She does not seem to be on medications that would explain her significant symptoms. She only takes tramadol for pain as well as an SSRI for depression. She takes Vyvanse for what has been deemed ADHD but does not get much improvement with it. Her symptoms were felt to be most consistent with HEIDE and therefore a PSG was ordered Methods used for Diagnostic Study: Subject was monitored in the sleep laboratory. Electroencephalogram (C3/M2, C4/M1, F3/M2, F4/M1, 01/M2, O2/M1), EOG, EKG, and EMG (chin and bilateral anterior tibialis) were monitored by surface electrodes and recorded utilizing a computerized polygraph. Airflow was recorded by a thermistor and pressure transducer at the nose and mouth and oxygen saturation was recorded by a pulse oximeter. Thoracic and abdominal respiratory movements were recorded on 2 separate channels by respiratory inductive plethysmograph. Sleep stages were scored by standard techniques and abnormal respiratory events, cardiac arrhythmias, and leg movements were analyzed. Polysomnography Results Only 5.5 minutes of total sleep was recorded throughout the night. Patient noted pain associate with recent back surgery and claustrophobia. Patient opted to end study early at around midnight. Impression: Inadequate PSG attempt due to lack of sleep Recommendations: Consider repeat study with sleep aid if patient is agreeable Follow-up: Sleep Center. Electronically signed by: Shahzad Prieto MD 04/07/25 16:46 EDT us Shahzad Prieto MD SLEEP CENTER ORDERABLE S Final Result SLEEP MEDICINE documented in this encounter Visit Diagnoses Diagnosis Obstructive sleep apnea, adult Excessive daytime sleepiness Periodic limb movement disorder (PLMD) Periodic limb movement disorder documented in this encounter Care Teams Parts Consultant Relationship Specialty Start Date End Date Lolita Saunders DO [facility] [place] [address] PCP - General Family Medicine 10/19/22 documented as of this encounter
--- OUTSIDE RECORDS SUMMARY | 2025-06-05 18:55 | XMS_ITS | Encounter Summary ---
[facility] [address] [place] [id number] Care Team Providers Care Solid Waste Collection Worker Name Role Phone Lolita Saunders DO Primary Care Provider [phone] Reason for Referral * Hospital - Outpatient (Routine) - Closed Specialty Diagnoses / Procedures Referred By Contac t Referred To Contact Sleep Medicine Diagnoses Obstructive sleep apnea, adult Excessive daytime sleepiness Snoring Procedures Polysomnography 4 or More Parameters Shahzad Prieto MD [address] [place] [address] Phone: tel: fax: [facility] [address] [address] Phone: tel: fax: Referral ID Status Reason Start Date Expiration Date Visits Re quested Visits Authorized [id number] Closed 04/11/2025 06/28/2025 1 1 Reason for Visit * Hospital - Outpatient (Routine) - Closed Specialty Diagnoses / Procedures Referred By Contac t Referred To Contact Sleep Medicine Diagnoses Obstructive sleep apnea, adult Excessive daytime sleepiness Snoring Procedures Polysomnography 4 or More Parameters Shahzad Prieto MD [address] [place] [address] Phone: tel: fax: [facility] [address] [address] Phone: tel: fax: Referral ID Status Reason Start Date Expiration Date Visits Re quested Visits Authorized [id number] Closed 04/11/2025 06/28/2025 1 1 Encounter Details Date Type Department Care Team (Late st Contact Info) Description 06/05/2025 7:55 PM EDT Hospital Encounter [facility] [address] [place] [address] Shahzad Prieto MD [address] [place] [address] Obstructive sleep apnea, adult; Excessive daytime sleepiness; Snoring Social History Tobacco Use Types Packs/Day Years [...] Sign Reading Time Taken Comments Blood Pressure 137/68 06/05/2025 7:57 PM EDT Pulse 76 06/05/2025 7:57 PM EDT Temperature - - Respiratory Rate - - Oxygen Saturation 97% 06/05/2025 7:57 PM EDT Inhaled Oxygen Concentration - - Weight 92.1 kg (203 lb) 06/05/2025 7:57 PM EDT Height 167.6 cm (5' 5.98 ) 06/05/2025 7:57 PM ED T Body Mass Index 32.78 06/05/2025 7:57 PM EDT documented in this encounter Plan of Treatment Upcoming Encounters Date Type Department Care Team (Late st Contact Info) Description 08/29/2025 12:00 PM EST Office Visit [facility] SLEEP MEDICINE [address] [facility] [address] [place] [address] Rafael Corral, APPLIED [employer] PROFESSOR [address] [place] [address] 09/20/2025 9:15 AM EST Procedure visit [facility] NEUROLOGY [address] [facility] [address] [place] [phone] Tiffanie Davison MD [address] [facility] [address] [place] [address] 12/11/2025 10:15 AM EDT Office Visit [facility] RHEUMATOLOGY [address] [phone] Arlen Torres, APPLIED [employer] PHYS[employer] PROFESSOR [address] [address] 04/16/2026 9:45 AM EDT Office Visit [facility] RHEUM[facility]OLOGY [address] [phone] Terrence Chapa DO [address] [phone] documented as of this encounter Procedures Procedure Name Priority Date/Time Associated Diagnosis Comments NPSG Routine 06/06/2025 5:39 AM EDT Obstructive sleep apnea, adult Excessive daytime sleepiness Snoring documented in this encounter Results * NPSG (06/06/2025 5:39 AM EDT) Narrative SLEEP MEDICINE - 06/06/2025 5:17 PM EDT Table formatting from the original result was not included. Polysomnography Report Patient Name: Hanna Bourgeois Interpreting Physician: Shahzad Prieto MD Date of : 1980 Referring Provider: Shahzad Prieto,* Primary Care Provider: Lolita Saunders DO Date of Study: 06/05/2025 Clinical Information 45-year-old female seen by me in the sleep clinic. She had symptoms most consistent with obstructive sleep apnea. She had a negative HSAT 3 years ago and therefore a PSG was ordered. This was attempted in March but she had only 5 minutes of total sleep and therefore the study was reordered with Ambien as a sleep aid. Methods used for Diagnostic Study: Subject was [...] and leg movements were analyzed. Polysomnography Results - Normal sleep efficiency - Prolonged sleep latency - All sleep stages were present - AHI elevated at 8.4 - AHI higher during REM sleep - Normal PLM index - Oxygen saturations averaged 93% with saturations less than 89% for a total of 0.6 minutes in total throughout the night - Cardiac rhythm predominantly sinus - Snoring was present Impression: - mild obstructive sleep apnea is present. - Oxygen desaturations are present. - Snoring is present. - No evidence of a limb movement disorder Recommendations: - The patient would likely benefit from a trial of PAP therapy such as an AutoSet CPAP with an 8 cm minimum and 18 cm maximum. - Recommend weight loss. - Recommend the patient avoid alcohol and sedatives close to bedtime. Follow-up: Sleep Center Electronically signed by: Shahzad Prieto MD 06/06/25 17:12 EDT us Shahzad Prieto MD SLEEP CENTER ORDERABLE S Final Result SLEEP MEDICINE documented in this encounter Visit Diagnoses Diagnosis Obstructive sleep apnea, adult Excessive daytime sleepiness Snoring Other dyspnea and respiratory abnormality documented in this encounter Care Teams Solid Waste Collection Worker Relationship Specialty Start Date End Date Lolita Saunders DO [facility] [place] [address] PCP - General Family Medicine 10/19/22 documented as of this encounter
--- OUTSIDE RECORDS SUMMARY | 2025-08-13 10:00 | XMS_ITS | Encounter Summary ---
Author Organization [facility] Address [address] [place] [address] Care Team Providers Care Environmental Services Aide Name Role Phone Lolita Saunders DO Primary Care Provider [phone] Reason for Referral * Physical Therapy (Routine) - Closed Specialty Diagnoses / Procedures Referred By Contac t Referred To Contact Physical Therapy Diagnoses Neck pain Procedures ND OFFICE/OUTPATIENT NEW MODERATE MDM 45 MINUTES Arlen Torres APRN [address] [id number] Phone: tel: fax: LOCATION NOT FOUND IN SYSTEM [facility] [place] [address] Phone: tel: Referral ID Status Reason Start Date Expiration Date V isits Requested Visits Authorized [id number] Closed Specialty Services Required 08/13/2025 11/12/2026 1 1 Scheduling Instructions Add Scheduling Instructions here Reason for Visit * Reason Comments Rheumatoid Arthritis Encounter Details Date Type Department Care Team (Latest Contact Info) Description 08/13/2025 10:00 AM EST Office Visit [facility] [address] [address] Arlen Torres APRN [address] [place] [address] Seropositive rheumatoid arthritis (Primary Dx); Immunodeficiency due to treatment with immunosuppressive medication; Primary osteoarthritis involving multiple joints; Encounter for medication monitoring; NSAID long-term use; B12 deficiency; Neck pain Social History Tobacco Use Types Packs/Day Years Used Date Smoking Tobacco: Never Passive Smoke Exposure: Past Smokeless Tobacco: Never Tobacco Cessation:Counseling Given: Not Answered Alcohol Use Standard Drinks/Week Comments Yes 1 [...] Sign Reading Time Taken Comments Blood Pressure 122/70 08/13/2025 10:02 AM EST Pulse 88 08/13/2025 10:02 AM EST Temperature 36.6 C (97.9 F) 08/13/2025 10:02 AM EST Respiratory Rate - - Oxygen Saturation - - Inhaled Oxygen Concentration - - Weight 92.6 kg (204 lb 3.2 oz) 08/13/2025 10:02 AM EST Height 167.4 cm (5' 5.9 ) 08/13/2025 10:02 AM ES T Body Mass Index 33.06 08/13/2025 10:02 AM EST documented in this encounter Progress Notes * Arlen Torres, JEANE - 08/13/2025 10:00 AM ESTAssociated Problem(s): Seropositive rheumatoid arthritis * 06/01/2019: RAVINDRA 1:160, IgM RF+, CCP negative, LAM negative, HLA B27 negative. * 04/24/2019: B12 normal, Folate normal, CBC normal, CMP Normal, Free T3 normal, T4 normal, TSH normal, CRP 0.65 (<0.50), Ferritin 104, Mg normal, RF negative, Chromatin antibody normal, Ribosomal P Normal, Centromere normal, Peoples normal, INSPECTOR CHIEF normal Sm/INSPECTOR CHIEF normal, SCL 70 normal, DS DNA normal, SSA and SSB Normal, Vitamin D normal, ESR normal, RAVINDRA positive * 08/2022: positive dsDNA, other serologies negative, complements normal * Medications/treatments/interventions tried include: Mobic, Tizanidine, L5-S1 spinal fusion 2015, Discectomy procedures 2013 & 2014, Celexa, Ketorolac, dietary modification, Plaquenil (GI upset), Arava, MTX (migraines and fatigue), Prednisone, Cimzia (side effects), Infliximab (started 10/2020 and stopped with development of lupus like symptoms and positive dsDNA 08/2022), Celebrex, Diclofenac, Naproxen, Rituximab, Tramadol, she has seen orthopaedic surgeons, she had hip replacement surgery, physical therapy, gabapentin, Oxycodone 1. She seems stable today from an RA standpoint. 2. She reports much improvement on Rituximab infusions every 4 months. Her most recent dose was done 07/10/25 and 07/23/25 at [facility]. She reports after her last infusion she had hematuria. This has happened to her before as well withher infusions. She took a course of Macrobid and this resolved. She has a history of IC. 3. Continue Tramadol PRN for pain 4. Check labs today 5. Follow up in 4 months * Arlen Torres APRN - 08/13/2025 10:00 AM ESTAssociated Problem(s): Immunodeficiency due to treatment with immunosuppressive medication * IV Rituximab for RA every 4 months for RA * 1st doses given 03/29/23 & 04/13/23 *QTB and hepatitis panel negative 11/28/24 Hold if the patient develops infection. Avoid live vaccines while on this medication. No recent serious infections No infusion reactions Also hold this medication perioperatively if the patient is going to have a surgical procedure * Arlen Torres APRN - 08/13/2025 10:00 AM ESTAssociated Problem(s): Osteoarthritis Tylenol PRN is ok as directed She has tried oral NSAIDS like ibuprofen Currently she is on Celecoxib Refill today Continue tizanidine 4-8 mg nightly PRN. She has done physical therapy She has seen orthopaedic surgeons She has had lumbar spine surgery 12/2024 Continue/refill tramadol She had hip replacement surgery She has tried taking gabapentin for neuropathic pain She has taken Oxycodone PRN. * Arlen Torres APRN - 08/13/2025 10:00 AM ESTAssociated Problem(s): Encounter for medication monitoring * Tramadol 50 mg PO every 6 hours PRN pain * Controlled substance agreement discussed and signed/updated 08/13/25 WOLF reviewed Drug screen ordered today 08/13/25 * Arlen Torres APRN - 08/13/2025 10:00 AM ESTAssociated Problem(s): NSAID long-term use Celecoxib 200 mg PO Once/day PRN for joint pain relief Do not take over-the counter anti-inflammatory medicines, such as ibuprofen or naproxen (Advil, Motrin, Aleve and others), as they may cause problems when combined with your prescription medications.In general, low dose daily aspirin for the treatment or prevention of heart disease or stroke is safe to take. Acetaminophen (Tylenol) is generally safe to take as directed for headaches, cramps or other aches and pains or fever reduction. Risks of NSAIDS discussed including GI upset, GI bleeding, renal and hepatic risks and the risks ofcardiovascular disease and stroke. * Arlen Torres APRN - 08/13/2025 10:00 AM ESTAssociated Problem(s): B12 deficiency Continue monthly B12 injections 02/11/25 level was stable * Arlen Torres APRN - 08/13/2025 10:00 AM EST Office Follow Up Date: 08/13/2025 Patient Name: Hanna Bourgeois Date of : 1980 Referring Physician: No ref. provider found Chief Complaint Patient presents with Rheumatoid Arthritis History of Present Illness: Hanna Bourgeois is a 45 y.o. female who is here today for follow up of RA. She reports feeling the same today. Today she rates her pain as 9/10 in severity. She has 2.5-3 hours/day of morning stiffness. No red or hot joints. Her joints hurt and swell. No muscle pain or weakness. She notes more neck pain. She has intermittent numbness and tingling in her hands, especially on the right side. Tizanidine at night is somewhat helpful. She had lumbar fusion L4-5 in [address] Dobson. She is still in PT for this currently. She has been having vaginal numbness since her surgery, which she reports they are aware of. Subjective Review of Systems Constitutional: Positive for fatigue and unexpected weight gain. HENT: Positive for postnasal drip, sneezing and tinnitus. Eyes: Positive for itching. Dry eyes Respiratory: Positive for apnea. Cardiovascular: Positive for leg swelling. Genitourinary: Positive for dysuria and hematuria. Musculoskeletal: Positive for arthralgias, back pain, joint swelling, myalgias, neck pain and neck stiffness. Allergic/Immunologic: Positive for environmental allergies. Neurological: Positive for headache. Psychiatric/Behavioral: Positive for agitation, dysphoric mood, depressed mood and stress. The patient is nervous/anxious. All other systems reviewed and are negative. Current Outpatient Medications: celecoxib (CeleBREX) 200 MG capsule, Take 1 capsule by mouth Daily As Needed for Mild Pain., Disp: 90 capsule, Rfl: 1 tiZANidine (ZANAFLEX) 4 MG tablet, Take one to two tablets by mouth nightly as needed for muscle spasm/neck pain, Disp: 60 tablet, Rfl: 3 traMADol (ULTRAM) 50 MG tablet, Take 1-2 tablets by mouth Every 6 (Six) Hours As Needed for Moderate Pain., Disp: 240 tablet, Rfl: 5 albuterol sulfate HFA 108 (90 Base) MCG/ACT inhaler, albuterol sulfate HFA 90 mcg/actuation aerosolinhaler INHALE 1 TO 2 PUFFS BY MOUTH FOUR TIMES DAILY NEEDED DIRECTED, Disp: , Rfl: cyanocobalamin 1000 MCG/ML injection, Inject 1 mL under the skin into the appropriate area as directed Every 30 (Thirty) Days., Disp: 4 mL, Rfl: 6 escitalopram (LEXAPRO) 10 MG tablet, Take 1 tablet by mouth Daily., Disp: , Rfl: montelukast (SINGULAIR) 10 MG tablet, Take 1 tablet by mouth Daily., Disp: , Rfl: omeprazole (priLOSEC) 40 MG capsule, TAKE 1 CAPSULE BY MOUTH TWICE DAILY, Disp: 180 capsule, Rfl: 1 riTUXimab-pvvr (RUXIENCE IV), Infuse into a venous catheter. ADMINISTER RLUXIENCE 1000 WEEK 0, 2, THEN EVERY 6 MONTHS DIRECTED, Disp: , Rfl: rizatriptan (Maxalt) 10 MG tablet, Take 1 tablet at onset of headache. May repeat once in 2 hours. Do not take more than 2 tabs a day or 8 tabs a month, Disp: 8 tablet, Rfl: 3 Salicylic Acid powder, , Disp: , Rfl: traZODone (DESYREL) 100 MG tablet, Take 1 tablet (100 mg total) by mouth every night as needed for insomnia., Disp: , Rfl: Current Facility-Administered Medications: OnabotulinumtoxinA 155 Units, 155 Units, Intramuscular, Q12 Weeks, Tiffanie Davison MD, 155 Units at06/07/25 0852 Allergies Allergen Reactions Penicillins Other (See Comments), Hives and Unknown (See Comments) childhood as child Unknown reaction (took as a kid) childhood Unknown reaction (took as a kid) Erythromycin Nausea And Vomiting Other Other (See Comments) Invanz (Uncoded) Ertapenem GI Intolerance, Other (See Comments) and Unknown (See Comments) Blisters in mouth and throat Note: Blisters- Major this is Invanz blisters in mouth Blisters mouth & throat Blisters in mouth and throat Blisters mouth & throat I have reviewed and updated the patient's chief complaint, history of present illness, review of systems, past medical history, surgical history, family history, social history, medications and allergy list as appropriate. Objective Vitals: 08/13/25 1002 BP: 122/70 Pulse: 88 Temp: 97.9 ??F (36.6 ??C) Weight: 92.6 kg (204 lb 3.2 oz) Height: 167.4 cm (65.9 ) PainSc: 9 PainLoc: Hand Body mass index is 33.06 kg/m??. Defer to PCP Physical Exam General: Well appearing 45 year old female. Not in distress. She is ambulating unassisted. SKIN: No rashes. No alopecia. No subcutaneous nodules. No digital pits or ulcers. No sclerodactyly. HEENT: NCAT. Conjunctiva clear, no photophobia. No oral or nasal ulcers. Hearing intact. Pulmonary: Clear to auscultation bilaterally. No wheezing, rales, or rhonchi. CV: Regular rate and rhythm. No murmurs, rubs, or gallops. Psych: Normal mood and affect. Alert and oriented x 3. Extremities: No cyanosis or edema. Musculoskeletal: No joint swelling or tenderness to palpation. No warmth or erythema. Normal range of motion of the wrists, ankles, elbows, and knees. She is s/p right THR. Cervical spine ROM is normal. Lymph: No palpable cervical adenopathy Assessment / Plan Assessment & Plan Seropositive rheumatoid arthritis * 06/01/2019: RAVINDRA 1:160, IgM RF+, CCP negative, LAM negative, HLA B27 negative. * 04/24/2019: B12 normal, Folate normal, CBC normal, CMP Normal, Free T3 normal, T4 normal, TSH normal, CRP 0.65 (<0.50), Ferritin 104, Mg normal, RF negative, Chromatin antibody normal, Ribosomal P Normal, Centromere normal, Peoples normal, INSPECTOR CHIEF normal Sm/INSPECTOR CHIEF normal, SCL 70 normal, DS DNA normal, SSA and SSB Normal, Vitamin D normal, ESR normal, RAVINDRA positive * 08/2022: positive dsDNA, other serologies negative, complements normal * Medications/treatments/interventions tried include: Mobic, Tizanidine, L5-S1 spinal fusion 2015, Discectomy procedures 2013 & 2014, Celexa, Ketorolac, dietary modification, Plaquenil (GI upset), Arava, MTX (migraines and fatigue), Prednisone, Cimzia (side effects), Infliximab (started 10/2020 and stopped with development of lupus like symptoms and positive dsDNA 08/2022), Celebrex, Diclofenac, Naproxen, Rituximab, Tramadol, she has seen orthopaedic surgeons, she had hip replacement surgery, physical therapy, gabapentin, Oxycodone 1. She seems stable today from an RA standpoint. 2. She reports much improvement on Rituximab infusions every 4 months. Her most recent dose was done 07/10/25 and 07/23/25 at [facility]. She reports after her last infusion she had hematuria. This has happened to her before as well withher infusions. She took a course of Macrobid and this resolved. She has a history of IC. 3. Continue Tramadol PRN for pain 4. Check labs today 5. Follow up in 4 months Immunodeficiency due to treatment with immunosuppressive medication * IV Rituximab for RA every 4 months for RA * 1st doses given 03/29/23 & 04/13/23 *QTB and hepatitis panel negative 11/28/24 Hold if the patient develops infection. Avoid live vaccines while on this medication. No recent serious infections No infusion reactions Also hold this medication perioperatively if the patient is going to have a surgical procedure Primary osteoarthritis involving multiple joints Tylenol PRN is ok as directed She has tried oral NSAIDS like ibuprofen Currently she is on Celecoxib Refill today Continue tizanidine 4-8 mg nightly PRN. She has done physical therapy She has seen orthopaedic surgeons She has had lumbar spine surgery 12/2024 Continue/refill tramadol She had hip replacement surgery She has tried taking gabapentin for neuropathic pain She has taken Oxycodone PRN. Encounter for medication monitoring * Tramadol 50 mg PO every 6 hours PRN pain * Controlled substance agreement discussed and signed/updated 08/13/25 WOLF reviewed Drug screen ordered today 08/13/25 NSAID long-term use Celecoxib 200 mg PO Once/day PRN for joint pain relief Do not take over-the counter anti-inflammatory medicines, such as ibuprofen or naproxen (Advil, Motrin, Aleve and others), as they may cause problems when combined with your prescription medications.In general, low dose daily aspirin for the treatment or prevention of heart disease or stroke is safe to take. Acetaminophen (Tylenol) is generally safe to take as directed for headaches, cramps or other aches and pains or fever reduction. Risks of NSAIDS discussed including GI upset, GI bleeding, renal and hepatic risks and the risks ofcardiovascular disease and stroke. B12 deficiency Continue monthly B12 injections 02/11/25 level was stable Neck pain Increased neck pain recently with some radicular pain in her arms/hands. Some intermittent numbness/tingling in right hand especially XR cervical spine today Try PT Consider MRI/EMG Recommend she also discuss with Dr. Dobson Continue medications as above Orders: XR Spine Cervical 2 or 3 View; Future Ambulatory Referral to Physical Therapy for Evaluation & Treatment TIME SPENT: I spent 40 minutes caring for the patient on this date of service. This time includes time spent by me in the following activities: Preparing for the visit, obtaining records, reviewing/ordering tests and independently reviewing results, performing a medically appropriate history/exam, counseling and educating the patient/family/caregiver, ordering medications, tests, or procedures, and documenting information in the medical record. Discussed plan of care in detail with the patient today. Patient verbalized understanding and agrees. I confirm accuracy of unchanged data/findings which have been carried forward from previous visit. I have updated appropriately those that have changed. Follow Up: Return in about 4 months (around 12/12/2025) for Arlen Love APRN. Arlen Torres APRN [facility] [place] documented in this encounter Plan of Treatment Upcoming Encounters Date Type Department Care Team (Late st Contact Info) Description 08/29/2025 12:00 PM EST Office Visit [facility] [address] [facility] [address] [place] [phone] Rafael Corral APRN [address] [place] [address] 09/20/2025 9:15 AM EST Procedure visit [facility] [address] [facility] [address] [place] [phone] Tiffanie Davison MD [address] [facility] [address] [place] [phone] 12/11/2025 10:15 AM EDT Office Visit [facility] [address] [phone] Arlen Torres APRN [address] [facility] [address] [place] [address] 04/16/2026 9:45 AM EDT Office Visit [facility] [address] [place] [phone] Terrence Chapa, [address] [address] Scheduled Orders Name Type Priority Associated Diagnoses Orde r Schedule ToxAssure Flex 22, Urine - Urine, Random Void Lab Routine Encounter for medication monitoring Ordered: 08/13/2025 XR Spine Cervical 2 or 3 View Imaging Routine Neck pain Expected: 08/16/2025, Expires: 11/11/2026 documented as of this encounter Procedures Procedure Name Priority Date/Time Associated Diagnosis Comments SEDIMENTATION RATE Routine 08/13/2025 11 :08 AM EST Seropositive rheumatoid arthritis Immunodeficiency due to treatment with immunosuppressive medication Encounter for medication monitoring NSAID long-term use CBC (NO DIFF) Routine 08/13/2025 11:08 AM EST Seropositive rheumatoid arthritis Immunodeficiency due to treatment with immunosuppressive medication Encounter for medication monitoring NSAID long-term use C-REACTIVE PROTEIN Routine 08/13/2025 11 :08 AM EST Seropositive rheumatoid arthritis Immunodeficiency due to treatment with immunosuppressive medication Encounter for medication monitoring NSAID long-term use COMPREHENSIVE METABOLIC PANEL Routine 08/13/2025 11:08 AM EST Seropositive rheumatoid arthritis Immunodeficiency due to treatment with immunosuppressive medication Encounter for medication monitoring NSAID long-term use documented in this encounter Results * CBC (No Diff) (08/13/2025 11:08 AM EST) WBC 7.81 3.40 - 10.80 10*3/mm3 [facility] RBC 4.54 3.77 - 5.28 10*6/mm3 [facility] Hemoglobin 14.2 12.0 - 15.9 g/dL [facility] Hematocrit 42.3 34.0 - 46.6 % [facility] MCV 93.2 79.0 - 97.0 fL [facility] MCH 31.3 26.6 - 33.0 pg [facility] MCHC 33.6 31.5 - 35.7 g/dL [facility] RDW 13.0 12.3 - 15.4 % [facility] Platelets 317 140 - 450 10*3/mm3 [facility] Blood 08/13/2025 11:0 8 AM EST 08/13/2025 Narrative [facility] ([facility]) - 08/13/2025 8:07 PM EST Performed at: [address] [place] [address] [address] [place], [place] [id number] Tim[place] Hewer: River Meier MD, Phone: [phone] Patient Fasting: Y us Evva D Brian CHARGE POSTER LAB BLOOD ORDERABLES Final Res ult Performing Organization Address City/[facility]/ZIP Co de Phone Number [facility] ([facility]) [address] [place] [address], [place] [phone] [facility] [address] [place] [address], [place] [phone] * Sedimentation Rate (08/13/2025 11:08 AM EST) Sed Rate 9 0 - 20 mm/hr [facility] Blood 08/13/2025 11:0 8 AM EST 08/13/2025 Narrative [facility] ([facility]) - 08/13/2025 8:07 PM EST Performed at: [address] [place] [address] [address] [place], [place] [id number] Tim[place] Hewer: River Meier MD, Phone: [phone] Patient Fasting: Y us Evva D Brian CHARGE POSTER LAB BLOOD ORDERABLES Final Res ult Performing Organization Address City/[facility]/ZIP Co de Phone Number [facility] (AMBULATORY) [address] [place] [address], [place] [phone] [facility] [address] [place] [address], [place] [phone] * (ABNORMAL) C-reactive Protein (08/13/2025 11:08 AM EST) C-Reactive Protein 1.69(H) 0.00 - 0.50 mg/dL [facility] Blood 08/13/2025 11:0 8 AM EST 08/13/2025 Narrative [facility] ([facility]) - 08/13/2025 8:07 PM EST Performed at: [address] [place] [address] [address] [place], [place] [id number] Timber Hewer: River Meier MD, Phone: [phone] Patient Fasting: Y us Arlen Torres APRN LAB BLOOD ORDERABLES Final Res ult [facility] (AM[facility]UL[facility]) [address] [place] [address], [place] [phone] [facility] [address] [place] [address], [place] [phone] * Comprehensive Metabolic Panel (08/13/2025 11:08 AM EST) [facility] Glucose 92 65 - 99 mg/dL [facility] BUN 16.0 6.0 - 20.0 mg/dL [facility] Creatinine 0.89 0.57 - 1.00 mg/dL [facility] EGFR Result 82.1 >60.0 mL/min/1.7 3 [facility] Comment: GFR Categories in Chronic Kidney Disease (CKD) GFR Category GFR (mL/min/1.73) Interpretation G1 90 or greater Normal or high (1) G2 60-89 Mild decrease (1) G3a 45-59 Mild to moderate decrease G3b 30-44 Moderate to severe decrease G4 15-29 Severe decrease G5 14 or less Kidney failure (1)In the absence of evidence of kidney disease, neither GFR category G1 or G2 fulfill the criteria for CKD. eGFR calculation 2020 CKD-EPI creatinine equation, which does not include race as a factor BUN/Creatinine Ratio 18.0 7.0 - 25.0 [facility] Sodium 140 136 - 145 mmol/L [facility] Potassium 4.9 3.5 - 5.2 mmol/L [facility] Chloride 103 98 - 107 mmol/L [facility] Total CO2 27.4 22.0 - 29.0 mmol/L [facility] Calcium 9.1 8.6 - 10.5 mg/dL [facility] Total Protein 6.3 6.0 - 8.5 g/dL [facility] Albumin 4.2 3.5 - 5.2 g/dL [facility] Globulin 2.1 gm/dL [facility] A/G Ratio 2.0 g/dL [facility] Total Bilirubin 0.3 0.0 - 1.2 mg/dL [facility] Alkaline Phosphatase 91 39 - 117 U/L [facility] AST (SGOT) 14 1 - 32 U/L [facility] ALT (SGPT) 14 1 - 33 U/L [facility] Blood 08/13/2025 11:0 8 AM EST 08/13/2025 Narrative [facility] ([facility]) - 08/13/2025 8:07 PM EST Performed at: [address] [id number] [place] Hewer: River Meier MD, Phone: [phone] Patient Fasting: Y us Arlen Torres CHARGE POSTER LAB BLOOD ORDERABLES Final Res ult [facility] ([facility]) [address] [id number], [place] [phone] [facility] [address] [id number], [place] [phone] documented in this encounter Visit Diagnoses Diagnosis Seropositive rheumatoid arthritis- Primary 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
--- NOTE | 2025-08-15 10:24 | XR_ITS ---
FINAL REPORT CLINICAL HISTORY: NECK PAIN numbness in hands COMPARISON: None FINDINGS: Three views of the cervical spine were obtained. There is no fracture present. There is no malalignment. There is mild disc space narrowing at C5-6. Mild anterior osteophyte formation is noted at C5-6. IMPRESSION: Degenerative changes without acute process. Reviewed, Interpreted and Dictated by Gregory Lucero MD Transcribed by Izzy Wall Authenticated and [facility]
--- OUTSIDE RECORDS SUMMARY | 2025-08-15 10:31 | XMS_ITS | Encounter Summary ---
[facility] Address [address] [place] [address] Care Team Providers Care Dope Firer Name Role Phone MauricioLolita valenzuela Nneka Primary Care Provider +1 [phone] Encounter Details Date Type Department Care Team (Latest Contact Info) Description 08/13/2025 Travel Social History Tobacco Use Types Packs/Day Years [...] PM EDT documented as of this encounter Plan of Treatment Upcoming Encounters Date Type Department Care Team (Late st Contact Info) Description 08/29/2025 12:00 PM EST Office Visit [facility] SLEEP MEDICINE 3000 [facility] [address] [place] [phone] Rafael Corral, CLIP COATER [address] [place] [address] 09/20/2025 9:15 AM EST Procedure visit [facility] NEUROLOGY [address] [facility] [address] [place] [phone] Tiffanie Davison MD [address] [facility] [address] [place] [phone] 12/11/2025 10:15 AM EDT Office Visit [facility] RHEUMATOLOGY [address] [place] [phone] Arlen Torres, CLIP COATER 330 [facility] 100 [place] [address] 04/16/2026 9:45 AM EDT Office Visit [facility] RHEUMATOLOGY [address] [place] [address] Terrence Chapa DO [address] [address] documented as of this encounter Visit Diagnoses Not on filedocumented in this encounter Care Teams Dope Firer Relationship Specialty Start Date End Date Lolita Saunders DO [facility] [place] [address] PCP - General Family Medicine 10/19/22 documented as of this encounter
--- OUTSIDE RECORDS SUMMARY | 2025-08-15 10:31 | XMS_ITS | Encounter Summary ---
Author Organization [facility] Address [address] [place] [address] Care Team Providers Care Mold Capper Helper Name Role Phone Mauricionicolas Lolita Nneka Primary Care Provider [phone] [phone] Reason for Visit * Reason Onset Date Comments Med Management 08/13/2025 Prior Authorization 08/13/2025 Labs Only 08/13/2025 Encounter Details Date Type Department Care Team (Late st Contact Info) Description 08/13/2025 Telephone [facility] RHEUMATOLOGY 330 [facility] 100 [place] [address] Arlen Torres, JEANE 330 [facility] 100 [place] [id number] Med Management; Prior Authorization; Labs Only Social History Tobacco Use Types Packs/Day Years [...] PM EDT documented as of this encounter Miscellaneous Notes * Telephone Encounter - César Gustafson RegSched Rep - 08/13/2025 12:30 PM EST PT WENT TO DO LABS UPSTAIRS, URINE LAB WAS NOT COLLECTED, BUT OFFICE STATED THEY ARE NOT ABLE TO PULL THE LAB ORDER AND NEED A NEW ONE TO DO THE PATIENT'S URINE LAB. PLEASE ADVISE AND NOTIFY PT WHEN NEW ORDER IS IN. -ZC * Telephone Encounter - César Gustafson RegSched Rep - 08/13/2025 10:57 AM EST Images from the original note were not included. documented in this encounter Plan of Treatment Upcoming Encounters Date Type Department Care Team (Late st Contact Info) Description 08/29/2025 12:00 PM EST Office Visit [facility] SLEEP MEDICINE 3000 [facility] 240 [place] [address] Rafael Corral, MEDICAL SERVICES ASSISTANT [address] [place] [address] 09/20/2025 9:15 AM EST Procedure visit [facility] NEUROLOGY 2101 [facility] 204 [place] [address] Tiffanie Davison MD 2101 [facility] 204 [place] [address] 12/11/2025 10:15 AM EDT Office Visit [facility] RHEUMATOLOGY [address] [address] Arlen Torres, JEANE [address] [phone] 04/16/2026 9:45 AM EDT Office Visit [facility] RHEUMATOLOGY [address] [address] Terrence Chapa DO [address] [phone] documented as of this encounter Visit Diagnoses Not on filedocumented in this encounter Care Teams Mold Capper Helper Relationship Specialty Start Date End Date Lolita Saunders DO [address] [place] [address] PCP - General Family Medicine 10/19/22 documented as of this encounter
--- OUTSIDE RECORDS SUMMARY | 2025-08-15 10:33 | XMS_ITS | Clinical Summary ---
Author Organization [facility] Address [address] [place] [address] Care Team Providers Care Community Health Outreach Worker Name Role Phone Ezequiel Joaquin MD Primary Care Provider + [phone] Allergies Active Allergy Reactions Criticality Noted Date Comments Ertapenem Other - please docum ent in the comment field,Unknown - Patient states they do not know rxn details Low 07/06/2012 blisters in mouth Blisters mouth & throat Blisters in mouth and throat Erythromycin Base Vomiting 03/11/2021 Penicillins Hives,Other - please document in the comment field,Unknown - Patient states they do not know rxn details Medium 07/06/2012 as child Unknown reaction (took as a kid) childhood Medications albuterol 108 (90 Base) MCG/ACT inhaler 1 (one) time each day if needed. Active Qulipta 60 MG tablet Take 60 mg by mouth 1 (one) time each day. 05/23/20 24 Active cyanocobalamin (Vitamin B-12) 1000 MCG/ML injection Inject 1 mL (1,000 mcg) under the skin every 14 (fourteen) days. 05/02/20 24 Active cyclobenzaprine (Flexeril) 10 MG tablet take 1/2 to 1 tablet by mouth three times a day if needed for SPASMS 05/13/20 15 Active DULoxetine (Cymbalta) [address] capsule Take 1 capsule (60 mg) by mouth 1 (one) time each day. Active escitalopram (Lexapro) 10 MG tablet Take 1 tablet (10 mg) by mouth 1 (one) time each day. Active estradiol (Estrace) 2 MG tablet Take 2 tablets (4 mg) by mouth twice a day. Active Vyvanse 20 MG capsule Take 1 capsule (20 mg) by mouth 1 (one) time each day. 04/06/20 24 Active lisinopril 10 MG tablet Take 1 tablet (10 mg) by mouth 1 (one) time each day. 06/13/20 24 Active montelukast (Singulair) 10 MG tablet Take 1 tablet (10 mg) by mouth 1 (one) time each day. 04/09/20 24 Active omeprazole (PriLOSEC) [address] capsule Take 1 capsule (40 mg) by mouth 2 (two) times a day. 06/18/20 24 Active SUMAtriptan (Imitrex) 100 MG tablet Take 1 tablet (100 mg) by mouth. Active spironolactone (Aldactone) 100 MG tablet Take 1 tablet (100 mg) by mouth 1 (one) time each day. 05/23/20 24 Active tiZANidine (Zanaflex) 4 MG tablet TAKE 1 TABLET BY MOUTH NIGHTLY AT BEDTIME Active traMADol (Ultram) 50 MG tablet Take 1 tablet (50 mg) by mouth. 05/02/20 24 Active traZODone (Desyrel) 100 MG tablet Take 1 tablet (100 mg) by mouth 1 (one) time each day. Active sodium chloride 0.9 % solution 500 mL with riTUXimab 500 MG/50ML solution, empty bag xx mL 1 each Infuse into a venous catheter 1 (one) time. 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 Take 1 tab at night with meal 14 tablet 1 07/05/20 24 Active Active Problems No known active problems Family History Medical History Relation Name Comments Cancer Other 1 Hypertension Other 2 Relation Name Status Comments Other 1 Other 2 Social History Tobacco Use Types Packs/Day Years Used Date Smoking Tobacco: Never Smokeless Tobacco: Never Tobacco Cessation:Counseling Given: Not Answered Comments Unknown Sex and Gender Information Value Date Recorded Sex Assigned at Not on file Legal Sex Female 6:42 PM EDT Gender Identity Not on file Sexual Orientation Not on file Last Filed Vital Signs Vital Sign Reading Time Taken Comments Blood Pressure 144/96 07/05/2024 9:08 AM EDT Pulse 97 07/05/2024 9:08 AM EDT Temperature - - Respiratory Rate - - Oxygen Saturation - - Inhaled Oxygen Concentration - - Weight 81.2 kg (179 lb 0.2 oz) 08/13/2015 10:37 AM EST Height 170.2 cm (5' 7 ) 05/30/2013 2:59 PM EDT Body Mass Index 28.04 05/30/2013 2:59 PM EDT Plan of Treatment Health Maintenance Due Date Last Done Comments Dental Oral Exam 1981 Dental Prophylaxis 1981 Dental X-Ray: Bitewings 1981 Dental X-Ray: Full Mouth 1981 [facility]-Depression Screening 1981 [facility]-HIV Screening 1981 [facility]-Hepatitis C Screening 1981 [facility]-/Child/Adol SDOH Screenings 1981 [facility]-Varicella Vaccines (1 of 2 - 13+ 2-dose series) 1994 [facility]- SDOH Screenings 1999 [facility]-Adult SDOH Screenings 1999 [facility]-DTaP,Tdap,and Td Vaccines (1 - Tdap) 2000 [facility]-Hepatitis B Vaccines (1 of 3 - 19+ 3-dose series) 2000 HPV Vaccines (1 - 3-dose SCDM series) 2008 [facility]-Pap Smear 05/02/2016 05/02/2013 [facility]-Cervical Cancer Screening 05/02/2018 [facility]-HPV/Cotest 05/02/2018 05/02/2013 [id number] Vaccine ( season) 2025 08/26/2021, 12/12/2020, 11/19/2020 [facility]-Influenza Vaccine (#1) 2025 07/29/2021 [facility]-Zoster Vaccines (1 of 2) 2031 [facility]-HIB Vaccines Aged Out No longer e ligible based on patient's age to complete this topic [facility]-Hepatitis A Vaccines Aged Out No longer eligible based on patient's age to complete this topic [facility]-IPV Vaccines Aged Out No longer e ligible based on patient's age to complete this topic [facility]-Pneumococcal Vaccine: Pediatrics (0 to 5 Years) and At-Risk Patients (6 to 49 Years) Aged Out No longer eligible b ased on patient's age to complete this topic [facility]-Rotavirus Vaccines Aged Out No lo nger eligible based on patient's age to complete this topic Procedures Procedure Name Priority Date/Time Associated Diagnosis Comments CYTO DATA CONVERSION Routine 05/02/2013 12:00 AM EDT from Last 3 Months or Most Recently Relevant to Health Maintenance Results * Cytology (05/02/2013 12:00 AM EDT) 05/02/2013 05/03/2013 12: 15 PM EDT Narrative [facility]QUEST - 05/08/2013 10:45 AM EDT PSYCHIATRIC MR #: [id number] [facility] [place] [address] 1980 (Age: 33) FW Collect Date: 05/02/2013 00:00 Receipt Date: 05/03/2013 12:15 Page 1 DEPARTMENT OF PATHOLOGY AND LABORATORY MEDICINE CYTOPATHOLOGY REPORT Email: [email or web address] [id number] ATTENDING MD/Practitioner: Devon Velasco MD. Service: OBE Location: [facility] Reported: 05/08/2013 10:45 Collected: 05/02/2013 00:00 INTERPRETATION A. THIN PREP (CERVICAL/VAGINAL): NEGATIVE FOR INTRAEPITHELIAL LESION OR MALIGNANCY. SATISFACTORY FOR EVALUATION; ENDOCERVICAL/TRANSFORMATION ZONE COMPONENT ABSENT/INSUFFICIENT. Slide scanned and imaged by [email or web address] ThinPrep Imaging System with manual review of all selected mendez. Electronically Signed Out By KRISTIN Chandler (ASCP) KRISTIN Bhatt(ASCP) KRISTIN Chandler (ASCP) Cervical cytology is a screening test primarily for squamous cancers and precursors and has associated false negative and positive results. New technologies such as liquid based sampling may decrease but will not eliminate all false negative results. Regular screening and follow-up of unexplained clinical signs and symptoms are recommended to minimize false negative results. Please see the ASCCP website (www.asccp.org) for followup recommendations. If HPV testing was requested, correlation with the results is suggested (please call Microbiology at [phone] for results). CLINICAL INFORMATION: Menstrual History: Irregular cycle Date of Last Menstrual Period: 02/24/13 Other Clinical Conditions: If ASCUS and > 24 years of age, HPV/DNA testing requested. SPECIMEN DESCRIPTION: A: THIN PREP (CERVICAL/VAGINAL) THIN PREP PROCESS CELLULAR ENHANCEMENT ICD: F: A; RT IMAGE [id number] SNOMED CODES: A; H3T547 [id number] [id number] [id number] [id number] In cases where a pathologist has signed out the report, the service has been rendered in part by a resident. The signing pathologist has performed and is responsible for the reported pathologic evaluation. us Historical Provider LAB PATHOLOGY ORDERABLES Fin al Result [facility]QUEST from Last 3 Months or Most Recently Relevant to Health Maintenance Insurance [facility] Care Teams Community Health Outreach Worker Relationship Specialty Start Date End Date Ezequiel Joaquin MD [address] [facility] [address] [place] [address] PCP - General 01/23/21
--- OUTSIDE RECORDS SUMMARY | 2025-08-15 10:33 | XMS_ITS | Encounter Summary ---
Author Organization [facility] Address [address] [place] [address] Care Team Providers Care Master Cook Name Role Phone Lolita Saunders Primary Care Provider [phone] [phone] Reason for Visit * Reason Onset Date Comments Prior Authorization 08/13/2025 Tramadol Encounter Details Date Type Department Care Team (Latest Contact Info) Description 08/13/2025 Prior Authorization [facility] RHEUMATOLOGY [address] [place] [address] Helen Logan MA Prior Authorization (Tramadol) Social History Tobacco Use Types Packs/Day Years [...] encounter Miscellaneous Notes * Telephone Encounter - Helen Logan MA - 08/13/2025 5:26 PM EST PA for Tramadol submitted in CM, pina [id number]. Approved 08/13/25-02/09/26. Approval letter faxed to [facility]. documented in this encounter Plan of Treatment Upcoming Encounters Date Type Department Care Team (Late st Contact Info) Description 08/29/2025 12:00 PM EST Office Visit [facility] SLEEP MEDICINE 3000 [facility] 240 [place] [address] Rafael Corral, CONSUMER AFFAIRS DIRECTOR [address] [place] [address] 09/20/2025 9:15 AM EST Procedure visit [facility] NEUROLOGY [address] [facility] 204 [place] [address] Tiffanie Davison MD [address] [facility] 204 [place] [address] 12/11/2025 10:15 AM EDT Office Visit [facility] RHEUMATOLOGY 330 [facility] 100 [place] [address] Arlen Torres, CONSUMER AFFAIRS DIRECTOR 330 [facility] 100 [place] [address] 04/16/2026 9:45 AM EDT Office Visit [facility] RHEUMATOLOGY 330 [facility] 100 [place] [address] Terrence Chapa DO 330 [facility] 100 [place] [address] documented as of this encounter Visit Diagnoses Not on filedocumented in this encounter Care Teams Master Cook Relationship Specialty Start Date End Date Lolita Saunders DO [address] [place] [address] PCP - General Family Medicine 10/19/22 documented as of this encounter
--- OUTSIDE RECORDS SUMMARY | 2025-08-15 10:33 | XMS_ITS | Encounter Summary ---
[facility] Address [address] [place] [address] Care Team Providers Care It Security Consultant Name Role Phone MauricioLolita valenzuela Primary Care Provider +1 [phone] Encounter Details Date Type Department Care Team (Late st Contact Info) Description 08/14/2025 Results Follow-Up [facility] RHEUMATOLOGY [address] [address] Arlen Torres, JEANE [address] [phone] Social History Tobacco Use Types Packs/Day Years [...] Description 08/29/2025 12:00 PM EST Office Visit [facility] SLEEP MEDICINE 3000 [facility] 240 [place] [address] Rafael Corral, CORE MACHINE OPERATOR [address] [place] [address] 09/20/2025 9:15 AM EST Procedure visit [facility] NEUROLOGY 2101 [facility] 204 [place] [address] Tiffanie Davison MD [address] [facility] 204 [place] [address] 12/11/2025 10:15 AM EDT Office Visit [facility] RHEUMATOLOGY [address] [address] Arlen Torres, CORE MACHINE OPERATOR [address] [address] 04/16/2026 9:45 AM EDT Office Visit [facility] RHEUMATOLOGY [address] [address] Terrence Chapa DO [address] [address] documented as of this encounter Visit Diagnoses Not on filedocumented in this encounter Care Teams It Security Consultant Relationship Specialty Start Date End Date Lolita Saunders DO [facility] [employer] [place] [id number] PCP - General Family Medicine 10/19/22 documented as of this encounter
--- OUTSIDE RECORDS SUMMARY | 2025-08-15 10:33 | XMS_ITS | Encounter Summary ---
[facility] Organization [facility] Address [address] [place] [address] Care Team Providers Care Channel Specialist Name Role Phone MauricioLolita valenzuela Primary Care Provider +1 [phone] Encounter Details Date Type Department Care Team (Late st Contact Info) Description 11/29/2024 Results Follow-Up [facility] RHEUMATOLOGY [address] [address] Arlen Torres, JEANE [address] [phone] Social History Tobacco Use Types Packs/Day Years [...] Description 08/29/2025 12:00 PM EST Office Visit [facility] SLEEP MEDICINE 3000 [facility] 240 [place] [address] Rafael Corral, HOME APPLIANCES MECHANIC [address] [place] [address] 09/20/2025 9:15 AM EST Procedure visit [facility] NEUROLOGY 2101 [facility] 204 [place] [address] Tiffanie Davison MD 2101 [facility] [address] [place] [address] 12/11/2025 10:15 AM EDT Office Visit [facility] RHEUMATOLOGY [address] [address] Arlen Torres, HOME APPLIANCES MECHANIC [address] [address] 04/16/2026 9:45 AM EDT Office Visit [facility] RHEUMATOLOGY [address] [address] Terrence Chapa DO [address] [address] documented as of this encounter Visit Diagnoses Not on filedocumented in this encounter Care Teams Channel Specialist Relationship Specialty Start Date End Date Lolita Saunders DO [facility] [employer] [place] [id number] PCP - General Family Medicine 10/19/22 documented as of this encounter
--- OUTSIDE RECORDS SUMMARY | 2025-08-15 10:33 | XMS_ITS | Referral Summary ---
Author Organization [facility] ([place], [place], [place], [place], [place]) Address [address] [place] [address] Care Team Providers Care Plug Maker Name Role Phone Nicky Lolitadickson Randolph DO Primary Care Provider Allergies Active Allergy Reactions Criticality Noted Date Comments Erythromycin Nausea And Vomiting 05/25/2024 Ertapenem 05/25/2024 Blisters mouth & throat Penicillin 05/25/2024 Unknown reaction (took as a kid) Medications traZODone (DESYREL) 100 MG tablet Take 1 tablet (100 mg total) by mouth every night as needed for insomnia. Active omeprazole (PriLOSEC) 40 MG capsule Take 1 capsule (40 mg total) by mouth 2 (two) times daily. 4 Active escitalopram oxalate (LEXAPRO) 10 MG tablet Take 1 tablet (10 mg total) by mouth nightly. Active cyanocobalamin (VITAMIN B-12) 1,000 mcg/mL injection Inject 1 mL (1,000 mcg total) under the skin every 30 (thirty) days. 4 Active riTUXimab (RITUXAN) infusion Infuse into a venous catheter every 4 (four) months Use as directed. Active nortriptyline (PAMELOR) 25 MG capsule Take 1 capsule (25 mg total) by mouth nightly. Active lisinopriL (ZESTRIL) 10 MG tablet Take 1 tablet (10 mg total) by mouth daily. 4 Active montelukast (SINGULAIR) 10 mg tablet Take 1 tablet (10 mg total) by mouth nightly. Active metFORMIN (GLUCOPHAGE) 1000 MG tablet Take 1 tablet (1,000 mg total) by mouth 2 (two) times daily with breakfast and dinner. Active phentermine 37.5 MG capsule Take 1 capsule (37.5 mg total) by mouth every morning. Max Daily Amount: 37.5 mg Active topiramate (TOPAMAX) 25 MG tablet Take 1 tablet (25 mg total) by mouth nightly. Active Missing or Non-Formulary Medication Apply 1 Application topically 3 (three) times a week MON/WED/FRI Salicylic acid 70%/Fluorouracil (5-FU) 5% paste; apply to lesions as directed. Active spironolactone (ALDACTONE) 50 MG tablet Take 1 tablet (50 mg total) by mouth daily. Active rizatriptan (MAXALT) 10 MG tablet Take 1 tablet (10 mg total) by mouth daily as needed for migraine Do NOT exceed thirty (30) mg in 24 hours.. Active estradioL (ESTRACE) 2 MG tablet Take 2 tablets (4 mg total) by mouth daily. Active gabapentin (NEURONTIN) 300 MG capsule Take 1 capsule (300 mg total) by mouth 3 (three) times daily as needed (for Pain). Max Daily Amount: 900 mg Active Active Problems Problem Noted Date Diagnosed Date Surgery, elective 12/26/2024 Asthma 12/18/2024 Gastroesophageal reflux disease without esophagi tis 12/18/2024 HTN (hypertension) 12/18/2024 PONV (postoperative nausea and vomiting) 025 Social History Tobacco Use Types Packs/Day Years Used Date Smoking Tobacco: Never Smokeless Tobacco: Never Tobacco Cessation:Counseling Given: Not Answered Alcohol Use Standard Drinks/Week Comments Yes 0 (1 standard drink = 0.6 oz pur e alcohol) social drink [facility] Intimate Partner Violence Answer Da juan josé Recorded Within the last year, have y ou been afraid of your partner or ex-partner? No 12/12/2024 Within the last year, have y ou been humiliated or emotionally abused in other ways by your partner or ex-partner? No Within the last year, have y ou been kicked, hit, slapped, or otherwise physically hurt by your partner or ex-partner? No 12/12/2024 Within the last year, have y ou been raped or forced to have any kind of sexual activity by your partner or ex-partner? No 12/12/2024 Family and Community Support Answer Torrey e Recorded Help with Day to Day Activities Not on file 05/18/2024 Feeling Lonely or Isolated Not on file 05/18 Educational Attainment Answer Date Ian rded Speak language other than Gabonese at home Not on file 05/18/2024 Want help with school or training Not on file 05/18/2024 Substance Use Answer Date Recorded Used prescription meds for non-medical reasons N ot on file 05/18/2024 Used illegal drugs past 12 months Not on file 05/18/2024 Comments No Sex and Gender Information Value Date Recorded Sex Assigned at Not on file Legal Sex Female 1:01 PM CDT Gender Identity Not on file Sexual Orientation Not on file Last Filed Vital Signs Vital Sign Reading Time Taken Comments Blood Pressure 95/42 12/29/2024 11:10 AM EDT Pulse 75 12/29/2024 11:10 AM EDT Temperature 36.6 C (97.9 F) 12/29/2024 11:10 AM EDT Respiratory Rate 14 12/29/2024 11:10 AM EDT Oxygen Saturation 100% 12/29/2024 11:10 AM EDT Inhaled Oxygen Concentration - - Weight 87.1 kg (192 lb 2 oz) 12/26/2024 6:39 AM EDT Height 167.6 cm (5' 6 ) 12/18/2024 8:23 AM EDT Body Mass Index 31.01 12/18/2024 8:23 AM EDT Plan of Treatment Not on file Medical Devices Implanted Type Area Hoop Riveting Machine Operator Device Identifier Shelf Expiration Date Model / Serial / Lot Bone Putty Stimulan 5cc 620-005 - [id number] Implanted:Qty : 1 on 12/26/2024 by Shane Dobson MD at [facility] IMPLANTS N/A: Spine Lumbar BIOCOMPOS[employer]ES 08/11/2027 620-005 / / [id number] Description:Stimulan 5cc wit h added Vancomycin 500mg and Gentamicin 120mg antibiotic beads implant. Bone Vivigen Formable Cell 5c Bl-1600-002 - [id number] Implanted:Qty : 1 on 12/26/2024 by Shane Dobson MD at [facility] IMPLANTS N/A: Spine Lumbar LIFENET:LIFENET TRANSPLANT SRV 12/07/2025 BL-1600- 002 / [id number] / Cage Eit Plif H 11mm 8d 07/06 [id number] - [id number] Implanted:Qty : 1 on 12/26/2024 by Shane Dobson MD at [facility] IMPLANTS N/A: Spine Lumbar J &J:DEPUY:DEPUY SPINE [id number] 01/09/2029 [id number] / / [id number] Scr Spne Jozef Fix 7x50mm - Implanted:Qty : 2 on 12/26/2024 by Shane Dobson MD at [facility] IMPLANTS N/A: Spine Lumbar J &J:DEPUY:DEPUY SPINE / / Mis Paulina Ply Scrw Set Ti - Implanted:Qty : 6 on 12/26/2024 by Shane Dobson MD at [facility] IMPLANTS N/A: Spine Lumbar J &J:DEPUY:DEPUY SPINE / / Pancho Pre Load 65mm - [id number] Implanted:Qty : 2 on 12/26/2024 by Shane Dobson MD at [facility] IMPLANTS N/A: Spine Lumbar J &J:DEPUY:DEPUY SPINE / / Insurance BLUE CROSS/BLUE SHIELD Advance Directives For more information, please contact: [phone] * Full Code (Latest Code Status on File) Date Activated Date Inactivated Comments 12/26/2024 10:56 AM 12/29/2024 3:10 PM Care Teams Plug Maker Relationship Specialty Start Date End Date Lolita Saunders, DO [address] [facility] [address] [place] [address] PCP - General Family Medicine 05/25/24
--- OUTSIDE RECORDS SUMMARY | 2025-08-15 10:33 | XMS_ITS | Clinical Summary ---
Author Organization [facility] Address [address] [place] [address] Care Team Providers Care High Lift Operator Name Role Phone MauricioLolita valenzuela Nneka Primary Care Provider [phone] Allergies Active Allergy Reactions Criticality Noted Date Comments Ertapenem GI Intolerance,Other (See Comments),Unknown (See Comments) Low 07/06/2012 Blisters in mouth and throat Note: Blisters- Major this is Invanz blisters in mouth Blisters mouth & throat Blisters in mouth and throat Blisters mouth & throat Erythromycin Nausea And Vomiting 07/06/2012 Other Other (See Comments) 06/30/2021 Invanz (Uncoded) Penicillins Other (See Comments),Hives,Unknown (See Comments) Medium 07/06/2012 childhood as child Unknown reaction (took as a kid) childhood Unknown reaction (took as a kid) Medications albuterol sulfate HFA 108 (90 Base) MCG/ACT inhaler albuterol sulfate HFA 90 mcg/actuation aerosol inhaler INHALE 1 TO 2 PUFFS BY MOUTH FOUR TIMES DAILY NEEDED DIRECTED Active montelukast (SINGULAIR) 10 MG tablet Take 1 tablet by mouth Daily. 2 Active riTUXimab-pvvr (RUXIENCE IV) Infuse into a venous catheter. ADMINISTER RLUXIENCE 1000 WEEK 0, 2, THEN EVERY 6 MONTHS DIRECTED Active rizatriptan (Maxalt) 10 MG tablet Take 1 tablet at onset of headache. May repeat once in 2 hours. Do not take more than 2 tabs a day or 8 tabs a month 8 tablet 3 4 Active escitalopram (LEXAPRO) 10 MG tablet Take 1 tablet by mouth Daily. 5 Active Salicylic Acid powder 5 Active traZODone (DESYREL) 100 MG tablet Take 1 tablet (100 mg total) by mouth every night as needed for insomnia. Active cyanocobalamin 1000 MCG/ML injectionIndic ations:B12 deficiency Inject 1 mL under the skin into the appropriate area as directed Every 30 (Thirty) Days. 4 mL 6 5 Active omeprazole (priLOSEC) 40 MG capsule TAKE 1 CAPSULE BY MOUTH TWICE DAILY 180 capsule 1 5 Active celecoxib (CeleBREX) 200 MG capsuleIndicat ions:Encounter for medication monitoring Take 1 capsule by mouth Daily As Needed for Mild Pain. 90 capsule 1 5 Active tiZANidine (ZANAFLEX) 4 MG tablet Take one to two tablets by mouth nightly as needed for muscle spasm/neck pain 60 tablet 3 5 Active traMADol (ULTRAM) 50 MG tabletIndicati ons:Encounter for medication monitoring Take 1-2 tablets by mouth Every 6 (Six) Hours As Needed for Moderate Pain. 240 tablet 5 5 Active tiZANidine (ZANAFLEX) 4 MG tablet Take 1 tablet by mouth every night at bedtime. 3 08/13/20 25 Discontin ued(Reord er) celecoxib (CeleBREX) 200 MG capsuleIndicat ions:Encounter for medication monitoring Take 1 capsule by mouth Daily As Needed for Mild Pain. 90 capsule 1 5 08/13/20 25 Discontin ued(Reord er) traMADol (ULTRAM) 50 MG tabletIndicati ons:Encounter for medication monitoring Take 1-2 tablets by mouth Every 6 (Six) Hours As Needed for Moderate Pain. 240 tablet 5 5 08/13/20 25 Discontin ued(Reord er) Hospital, Clinic, or Other Facility Administered Medication Ordered Dose Route Frequency Start Date End Date Status OnabotulinumtoxinA 155 UnitsIndications:Chronic migraine without aura without status migrainosus, not intractable 155 Units IM Every 12 Weeks 12/13/2024 Active Active Problems Problem Noted Date Diagnosed Date HEIDE (obstructive sleep apnea) 06/06/2025 NSAID long-term use 02/07/2025 Assessment & Plan (08/13/2025 10:04 AM EST): Celecoxib 200 mg PO Once/day PRN for joint pain relief Do not take over-the counter anti-inflammatory medicines, such as ibuprofen or naproxen (Advil, Motrin, Aleve and others), as they may cause problems when combined with your prescription medications. In general, low dose daily aspirin for the treatment or prevention of heart disease or stroke is safe to take. Acetaminophen (Tylenol) is generally safe to take as directed for headaches, cramps or other aches and pains or fever reduction. Risks of NSAIDS discussed including GI upset, GI bleeding, renal and hepatic risks and the risks of cardiovascular disease and stroke. Assessment & Plan (02/07/2025 11:03 AM EDT): Celecoxib 200 mg PO Once/day PRN for joint pain relief Do not take over-the counter anti-inflammatory medicines, such as ibuprofen or naproxen (Advil, Motrin, Aleve and others), as they may cause problems when combined with your prescription medications. In general, low dose daily aspirin for the treatment or prevention of heart disease or stroke is safe to take. Acetaminophen (Tylenol) is generally safe to take as directed for headaches, cramps or other aches and pains or fever reduction. Orders: CBC Auto Differential; Future Comprehensive Metabolic Panel; Future C-reactive Protein; Future Sedimentation Rate; Future Urine Drug Screen - Urine, Clean Catch; Future B12 deficiency 05/02/2024 Assessment & Plan (08/13/2025 10:04 AM EST): Continue monthly B12 injections 02/11/25 level was stable Assessment & Plan (02/07/2025 11:03 AM EDT): Our nurse practitioner has started her on B12 supplements. Check level today Refill today. Today she requested us to check a ferritin level. Orders: Vitamin B12; Future cyanocobalamin 1000 MCG/ML injection; Inject 1 mL under the skin into the appropriate area as directed Every 30 (Thirty) Days. 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 Avoid live vaccines while on this medication. No recent serious infections No infusion reactions Also hold this medication perioperatively if the patient is going to have a surgical procedure Assessment & Plan (02/07/2025 11:03 AM EDT): * IV Rituximab for RA every 4 months for RA * 1st doses given 03/29/23 & 04/13/23 1. Hold if the patient develops infection. 2. Avoid live vaccines while on this medication. 3. No recent serious infections 4. No infusion reactions 5. Also hold this medication perioperatively if the patient is going to have a surgical procedure Orders: CBC Auto Differential; Future Comprehensive Metabolic Panel; Future C-reactive Protein; Future Sedimentation Rate; Future Urine Drug Screen - Urine, Clean Catch; Future Assessment & Plan (11/28/2024 12:08 PM EDT): * IV Rituximab for RA every 4 months. * 1st doses given 03/29/23 & 04/13/23 * Doses given 10/2023. *Doses given 10/08/2024 and 10/25/24 1. Hold if the patient develops infection. 2. Avoid live vaccines while on this medication. 3. No recent serious infections 4. Also hold this medication perioperatively if the patient is going to have a surgical procedure 5. Negative QTB and hepatitis panel 01/05/2024- update today Assessment & Plan (09/03/2024 10:38 AM EST): * IV Rituximab for RA every 6 months. Will PA every 4 months. * 1st doses given 03/29/23 & 04/13/23 * Doses given 10/2023. 1. Hold if the patient develops infection. 2. Avoid live vaccines while on this medication. 3. No recent serious infections 4. Also hold this medication perioperatively if the patient is going to have a surgical procedure 5. Negative QTB and hepatitis panel 01/05/2024 Assessment & Plan (05/02/2024 9:23 AM EDT): * IV Rituximab for RA every 6 months * 1st doses given 03/29/23 & 04/13/23 * Doses given 10/2023. *Doses given 04/2024. 1. Hold if the patient develops infection. 2. Avoid live vaccines while on this medication. 3. No recent serious infections 4. Also hold this medication perioperatively if the patient is going to have a surgical procedure 5. Negative QTB and hepatitis panel 01/05/2024 Osteoarthritis 05/01/2024 Assessment & Plan (08/13/2025 10:41 AM EST): Tylenol PRN is ok as directed She has tried oral NSAIDS like ibuprofen Currently she is on Celecoxib Refill today Continue tizanidine 4-8 mg nightly PRN. She has done physical therapy She has seen orthopaedic surgeons She has had lumbar spine surgery 12/2024 Continue/refill tramadol She had hip replacement surgery She has tried taking gabapentin for neuropathic pain She has taken Oxycodone PRN. Assessment & Plan (02/07/2025 11:03 AM EDT): Tylenol PRN is ok as directed She has tried oral NSAIDS like ibuprofen Currently she is on Celecoxib Refill today She has tried muscle relaxer's like tizanidine She has done some physical therapy She has seen orthopaedic surgeons She has had lumbar spine surgery Continue/refill Tramadol She had hip replacement surgery She has tried taking gabapentin for neuropathic pain She has taken Oxycodone PRN. Orders: CBC Auto Differential; Future Comprehensive Metabolic Panel; Future C-reactive Protein; Future Sedimentation Rate; Future Urine Drug Screen - Urine, Clean Catch; Future Assessment & Plan (11/28/2024 12:08 PM EDT): 1. Continue tramadol PRN pain as above 2. She had right THR 06/[address] Franz 3. She has done PT 4. She occasionally takes ibuprofen PRN 5. Tylenol Arthritis is okay to try also 6. She has history of TMJ. She follows with ENT and her dentist. 7. She had a back surgery with Dr. Dobson 05/2024 and will be having fusion done 12/2024 8. We will trial Celebrex 200 mg daily as needed. Risks and benefits discussed. Assessment & Plan (09/03/2024 10:37 AM EST): 1. Continue tramadol PRN pain 2. She had right THR 06/[address] Franz 3. She has done PT 4. She occasionally takes ibuprofen PRN 5. Tylenol Arthritis is okay to try also 6. She has history of TMJ. She follows with ENT and her dentist. She is considering joint injection. 7. She is having back surgery with Dr. Dobson 06/2024 8. Xray left hand and right knee as she has had a lot of pain since falling 4 days ago. She did go to the ER but they focused on her face since her face took the brunt of the fall. Assessment & Plan (05/02/2024 9:24 AM EDT): 1. Continue tramadol PRN pain 2. She had right THR 06/[address] Franz 3. She has done PT 4. She occasionally takes ibuprofen PRN 5. Tylenol Arthritis is okay to try also 6. She has history of TMJ. She follows with ENT and her dentist. She is considering joint injection. 7. She is having back surgery with Dr. Dobson 06/2024 Encounter for medication monitoring 05/01/2024 Assessment & Plan (08/13/2025 10:25 AM EST): * Tramadol 50 mg PO every 6 hours PRN pain * Controlled substance agreement discussed and signed/updated 08/13/25 WOLF reviewed Drug screen ordered today 08/13/25 Assessment & Plan (02/07/2025 11:03 AM EDT): * Tramadol 50 mg PO every 6 hours PRN pain * Controlled substance agreement discussed and signed/updated 05/02/24 Check WOLF and Drug screen as required. Drug screen ordered today Orders: CBC Auto Differential; Future Comprehensive Metabolic Panel; Future C-reactive Protein; Future Sedimentation Rate; Future Urine Drug Screen - Urine, Clean Catch; Future celecoxib (CeleBREX) 200 MG capsule; Take 1 capsule by mouth Daily As Needed for Mild Pain. traMADol (ULTRAM) 50 MG tablet; Take 1-2 tablets by mouth Every 6 (Six) Hours As Needed for Moderate Pain. Assessment & Plan (11/22/2024 12:48 PM EDT): * Tramadol 50 mg PO every 6 hours PRN pain *Controlled substance agreement was discussed and signed 05/01/2024 UDS UTD 05/02/2024 PDMP reviewed No signs of abuse or diversion Assessment & Plan (09/03/2024 10:23 AM EST): * Tramadol 50 mg PO every 6 hours PRN pain UDS 04/2024 PDMP reviewed Controlled substance agreement discussed and signed 05/01/2024 No signs of abuse or diversion Assessment & Plan (05/01/2024 12:06 PM EDT): * Tramadol 50 mg PO every 6 hours PRN pain UDS today PDMP reviewed Controlled substance agreement discussed and signed Fatigue 05/01/2024 Assessment & Plan (11/28/2024 12:10 PM EDT): 1. Continue B12 injections monthly. Will recheck level today. 2. Continue follow up with hematology and PCP for anemia and hemochromatosis treatment 3. Discuss sleep study with PCP 4. Update QTB and hepatitis panel today Assessment & Plan (08/30/2024 8:25 AM EST): 1. Continue B12 injections 2. Continue follow up with hematology and PCP for anemia and hemochromatosis treatment 3. Discuss sleep study with PCP Assessment & Plan (05/02/2024 9:25 AM EDT): 1. Continue B12 injections 2. Continue follow up with hematology and PCP for anemia and hemochromatosis treatment 3. Discuss sleep study with PCP Anxiety 04/29/2024 Asthma 04/29/2024 Depression 04/29/2024 Migraine 04/29/2024 Assessment & Plan (05/02/2024 9:33 AM EDT): She has seen a neurologist in the past, many years ago She takes Imitrex as needed She continues to have frequent migraines We will refer to neurology Hypertension 04/29/2024 Malignant melanoma 04/29/2024 Seropositive rheumatoid arthritis 04/29/2024 Assessment & Plan (08/13/2025 10:41 AM EST): * 06/01/2019: RAVINDRA 1:160, IgM RF+, CCP negative, LAM negative, HLA B27 negative. * 04/24/2019: B12 normal, Folate normal, CBC normal, CMP Normal, Free T3 normal, T4 normal, TSH normal, CRP 0.65 (<0.50), Ferritin 104, Mg normal, RF negative, Chromatin antibody normal, Ribosomal P Normal, Centromere normal, Peoples normal, BRUSH FILLER HAND normal Sm/BRUSH FILLER HAND normal, SCL 70 normal, DS DNA normal, [...] dose was done 07/10/25 and 07/23/25 at [facility]. She reports after her last infusion she had hematuria. This has happened to her before as well with her infusions. She took a course of Macrobid and this resolved. She has a history of IC. 3. Continue Tramadol PRN for pain 4. Check labs today 5. Follow up in 4 months Assessment & Plan (02/07/2025 11:03 AM EDT): * 06/01/2019: RAVINDRA 1:160, IgM RF+, CCP negative, LAM negative, HLA B27 negative. * 04/24/2019: B12 normal, Folate normal, CBC normal, CMP Normal, Free T3 normal, T4 normal, TSH normal, CRP 0.65 (<0.50), Ferritin 104, Mg normal, RF negative, Chromatin antibody normal, Ribosomal P Normal, Centromere normal, Peoples normal, BRUSH FILLER HAND normal Sm/BRUSH FILLER HAND normal, SCL 70 normal, DS DNA normal, [...] therapy, gabapentin, Oxycodone 1. She seems stable today. 2. She reports much improvement on Rituximab infusions. Her most recent dose was done in October. She gets the medicine at her home. 3. Continue Tramadol PRN for pain 4. Check labs today 5. Follow up in 6 months 6. We gave her a handout on RA to review. Orders: CBC Auto Differential; Future Comprehensive Metabolic Panel; Future C-reactive Protein; Future Sedimentation Rate; Future Urine Drug Screen - Urine, Clean Catch; Future Assessment & Plan (11/28/2024 12:07 PM EDT): * 06/01/2019: RAVINDRA 1:160, IgM RF+, CCP negative, LAM negative, HLA B27 negative. * 04/24/2019: b12 normal, Folate normal, CBC normal, CMP Normal, Free T3 normal, T4 normal, TSH normal, CRP 0.65 (<0.50), Ferritin 104, Mg normal, RF negative, Chromatin antibody normal, Ribosomal P Normal, Centromere normal, Peoples normal, BRUSH FILLER HAND normal Sm/BRUSH FILLER HAND normal, SCL 70 normal, DS DNA normal, SSA and SSB Normal, Vitamin D normal, ESR normal, RAVINDRA positive * 08/2022: positive dsDNA, other serologies negative, complements normal * Medications/treatments/interventions tried include: Mobic, Tizanidine, L5-S1 spinal fusion 2015, Discectomy procedures 2013 & 2014, Celexa, Ketorolac, dietary modification, Plaquenil (GI upset), Arava, MTX (migraines and fatigue), Prednisone, Cimzia (side effects), infliximab (started 10/2020 and stopped with development of lupus like symptoms and positive dsDNA 08/2022), Diclofenac, Naproxen, rituximab 03/2023, Tramadol, Celebrex 1. She feels the same today. 2. She does feel that Rituxan infusions have helped. She is now receiving infusions every 4 months. 3. Continue Tramadol PRN for pain. We will increase dose to 50 to 100 mg every 6 hours as needed 4. Check labs today 5. Follow up in 4-6 months 6. 01/20/2023 and 01/05/2024 she has had a positive double-stranded DNA. We are monitoring her for signs and symptoms of possible lupus overlap. 7. Will trial Celebrex 200 mg daily as needed Assessment & Plan (09/03/2024 10:37 AM EST): * 06/01/2019: RAVINDRA 1:160, IgM RF+, CCP negative, LAM negative, HLA B27 negative. * 04/24/2019: b12 normal, Folate normal, CBC normal, CMP Normal, Free T3 normal, T4 normal, TSH normal, CRP 0.65 (<0.50), Ferritin 104, Mg normal, RF negative, Chromatin antibody normal, Ribosomal P Normal, Centromere normal, Peoples normal, BRUSH FILLER HAND normal Sm/BRUSH FILLER HAND normal, SCL 70 normal, DS DNA normal, SSA and SSB Normal, Vitamin D normal, ESR normal, RAVINDRA positive * 08/2022: positive dsDNA, other serologies negative, complements normal * Medications/treatments/interventions tried include: Mobic, Tizanidine, L5-S1 spinal fusion 2015, Discectomy procedures 2013 & 2014, Celexa, Ketorolac, dietary modification, Plaquenil (GI upset), Arava, MTX (migraines and fatigue), Prednisone, Cimzia (side effects), infliximab (started 10/2020 and stopped with development of lupus like symptoms and positive dsDNA 08/2022), Celebrex, Diclofenac, Naproxen, rituximab, Tramadol. 1. She is feeling much worse.. 2. She does note that she has been flared for a month. 3. Continue Tramadol PRN for pain 4. Check labs today 5. Follow up in 4-6 months 6. 01/20/2023 and 01/05/2024 she has had a positive double-stranded DNA. We are monitoring her for signs and symptoms of possible lupus overlap. 7. She does notice a return of symptoms and pain about a month prior to infusion. 8. We will see if we can get her infusions every 4 months. PA request sent. 9. She has much more difficulty holding on to objects. 10. She is frequently falling. Recommend she discuss this with her neurologist. Assessment & Plan (05/02/2024 9:33 AM EDT): * 06/01/2019: RAVINDRA 1:160, IgM RF+, CCP negative, LAM negative, HLA B27 negative. * 04/24/2019: b12 normal, Folate normal, CBC normal, CMP Normal, Free T3 normal, T4 normal, TSH normal, CRP 0.65 (<0.50), Ferritin 104, Mg normal, RF negative, Chromatin antibody normal, Ribosomal P Normal, Centromere normal, Peoples normal, BRUSH FILLER HAND normal Sm/BRUSH FILLER HAND normal, SCL 70 normal, DS DNA normal, SSA and SSB Normal, Vitamin D normal, ESR normal, RAVINDRA positive * 08/2022: positive dsDNA, other serologies negative, complements normal * Medications/treatments/interventions tried include: Mobic, Tizanidine, L5-S1 spinal fusion 2015, Discectomy procedures 2013 & 2015, Celexa, Ketorolac, dietary modification, Plaquenil (GI upset), Arava, MTX (migraines and fatigue), Prednisone, Cimzia (side effects), infliximab (started 10/2020 and stopped with development of lupus like symptoms and positive dsDNA 08/2022), Celebrex, Diclofenac, Naproxen, rituximab, Tramadol. 1. Her joints are overall stable today. 2. She reports much improvement on rituximab infusions. She has had infusion this month and will receive her second dose of the cycle today. 3. Continue Tramadol PRN for pain 4. Check labs today 5. Follow up in 4-6 months 6. 01/20/2023 and 01/05/2024 she has had a positive double-stranded DNA. We are monitoring her for signs and symptoms of possible lupus overlap. Cholelithiasis 12/16/2022 Abdominal pain, acute, left upper quadrant 10/19 Hereditary hemochromatosis 10/05/2022 Generalized abdominal pain 10/05/2022 Chronic diarrhea 10/05/2022 Gastroesophageal reflux disease 10/05/2022 Lupus 10/05/2022 Stress fracture of neck of femur 02/07/2018 Resolved Problems Problem Noted Date Diagnosed Date Resolved Date RAVINDRA positive 04/29/2024 02/07/2025 CRP elevated 04/29/2024 02/07/2025 Encounters Date Type Department Care Team Description 08/14/2025 Results Follow-Up [facility] [address] [place] [phone] Arlen Torres APRN 08/13/2025 10:00 AM EST Office Visit [facility] [address] [place] [phone] Arlen Torres, CAR ATTENDANT Seropositive rheumatoid arthritis (Primary Dx); Immunodeficiency due to treatment with immunosuppressive medication; Primary osteoarthritis involving multiple joints; Encounter for medication monitoring; NSAID long-term use; B12 deficiency; Neck pain 08/13/2025 Prior Authorization [facility] [address] [place] [id number] Helen Logan MA Prior Authorization (Tramadol) 08/13/2025 Telephone [facility] [address] [place] [phone] Arlen Torres APRN Med Management; Prior Authorization; Labs Only 08/13/2025 Travel 06/14/2025 Refill [facility] GASTROENTEROLOG[facility] [address] [facility] [address] [place] [phone] Melvin Castañeda MD 06/07/2025 9:00 AM EDT Procedure visit [facility] NEUROLOGY [address] [facility] [address] [place] [phone] Tiffanie Davison MD Chronic migraine without aura without status migrainosus, not intractable (Primary Dx) 06/07/2025 Telephone [facility] SLEEP [facility]ICINE [address] [facility] [address] [place] [phone] Shahzad Prieto MD HST RESULTS 06/07/2025 Travel 06/05/2025 7:55 PM EDT Hospital Encounter [facility] [address] [facility] [address] [place] [phone] Shahzad Prieto MD Obstructive sleep apnea, adult; Excessive daytime sleepiness; Snoring 06/05/2025 Travel 05/21/2025 Prior Authorization [facility] [address] [facility] [address] [place] [phone] Celina Mohan MA [employer] APPROVAL from Last 3 Months Immunizations Immunization Administration Dates Next Due COVID-19 (UNSPECIFIED) 12/12/2020 Influenza, Unspecified 07/29/2021 Tdap 08/30/2024 Family History Medical History Relation Name Comments Arthritis Father Aleksandr Nicki Hypertension Father Aleksandr Caceres Migraines Father Aleksandr Nicki Sleep apnea Father Aleksandr Nicki Cancer Maternal Grandfather Tanner Fried Lung c ancer Cirrhosis Maternal Grandfather Tanner Fried Hemochromatosis Maternal Grandfather Tanner Fried Ulcerative colitis Maternal Grandfather Tanner Fried Cancer Maternal Grandmother Valerie Fried Melomon a Hypertension Mother Gisela Caceres Migraines Paternal Aunt Kayla Aiken COPD Paternal Grandfather Hema Nicki Emphysema Paternal Grandfather Hema Caceres Migraines Sister Lu Elena Seizures Son Relation Name Status Comments Father Aleksandr Caceres Maternal Grandfather Tanner Fried Maternal Grandmother Valerie Fried Mother Gisela Nicki Paternal Aunt Kayla Aiken Paternal Grandfather Hema Caceres Alive Sister Lu Elena Son Social History Tobacco Use Types Packs/Day Years [...] Orientation Straight 12/07/2024 3: 55 PM EDT Last Filed Vital Signs Vital Sign Reading Time Taken Comments Blood Pressure 122/70 08/13/2025 10:02 AM EST Pulse 88 08/13/2025 10:02 AM EST Temperature 36.6 C (97.9 F) 08/13/2025 10:02 AM EST Respiratory Rate 18 12/25/2022 1:14 PM EDT Oxygen Saturation 99% 06/07/2025 8:51 AM EDT Inhaled Oxygen Concentration - - Weight 92.6 kg (204 lb 3.2 oz) 08/13/2025 10:02 AM EST Height 167.4 cm (5' 5.9 ) 08/13/2025 10:02 AM ES T Body Mass Index 33.06 08/13/2025 10:02 AM EST Plan of Treatment Upcoming Encounters Date Type Department Care Team (Late st Contact Info) Description 08/29/2025 12:00 PM EST Office Visit [facility] SLEEP [facility]INE [address] [facility] [address] [place] [phone] Rafael Corral, CAR ATTENDANT [address] [place] [address] 09/20/2025 9:15 AM EST Procedure visit [facility] NEUROLOGY [address] [facility] [address] [place] [phone] Tiffanie Davison MD [address] [facility] [address] [address] [place] [address] 12/11/2025 10:15 AM EDT Office Visit [facility] RHEUMATOLOGY [address] [id number] Arlen Torres, CAR ATTENDANT [address] [address] 04/16/2026 9:45 AM EDT Office Visit [facility] RHEUMATOLOGY [address] [phone] Terrence Chapa DO [address] [address] Health Maintenance Due Date Last Done Comments Annual Gynecologic Pelvic and Breast Exam 1981 Pneumococcal Vaccine 0-49 (1 of 2 - PCV) 2000 ANNUAL PHYSICAL 02/13/2019 MAMMOGRAM 2021 INFLUENZA VACCINE 04/12/2025 07/29/2021 TDAP/TD VACCINES (2 - Td or Tdap) 08/30/2034 024 HEPATITIS C SCREENING Completed 11/28/2024 Medical Devices Implanted Type Area Turf Manager Device Identifier Shelf Expiration Date Model / Serial / Lot Clipapplr M/ Endo [id number] 5mm 33cm /Calixto - [id number] Implanted:Qty: 1 on 12/16/2022 by Cira Silverman MD at [facility] Implant N/A: Bile Duct [employer] J 10/12/2027 [id number] / / [id number] Procedures Procedure Name Priority Date/Time Associated Diagnosis Comments CBC (NO DIFF) Routine 08/13/2025 11:08 AM EST Seropositive rheumatoid arthritis Immunodeficiency due to treatment with immunosuppressive medication Encounter for medication monitoring NSAID long-term use SEDIMENTATION RATE Routine 08/13/2025 11 :08 AM [...] Encounter for medication monitoring NSAID long-term use NPSG Routine 06/06/2025 5:39 AM EDT Obstructive sleep apnea, adult Excessive daytime sleepiness Snoring HEPATITIS PANEL, ACUTE Routine 11/28/2024 11:32 AM EDT Rheumatoid arthritis with positive rheumatoid factor, involving unspecified site Immunodeficiency due to treatment with immunosuppressive medication Other fatigue from Last 3 Months or Most Recently Relevant to Health Maintenance Results * Sedimentation Rate (08/13/2025 11:08 AM EST) Sed Rate 9 0 - 20 mm/hr [facility] Blood 08/13/2025 11:0 8 AM EST 08/13/2025 Narrative [facility] ([facility]ORY) - 08/13/2025 8:07 PM EST Performed at: [address] [place] [id number] [employer] Worker: River Meier MD, Phone: [phone] Patient Fasting: Y us Evva Nixon Torres CAR ATTENDANT LAB BLOOD ORDERABLES Final Res ult Performing Organization Address [facility]/State/ZIP Co de Phone Number [facility] ([facility]BULATORY) [address] [place] [address], [facility] [address] [id number], * CBC (No Diff) (08/13/2025 11:08 AM [...] - 08/13/2025 8:07 PM EST Performed at: [address] [place] [id number] [employer] Worker: River Meier MD, Phone: [phone] Patient Fasting: Y us Evva Nixon Brian CAR ATTENDANT LAB BLOOD ORDERABLES Final Res ult Performing Organization Address [facility] Co de Phone Number [facility] [address] [place] [address], [facility] [address] [place] [address], * (ABNORMAL) C-reactive Protein (08/13/2025 11:08 AM EST) C-Reactive Protein 1.69(H) 0.00 - 0.50 mg/dL [facility] Blood 08/13/2025 11:0 8 AM EST 08/13/2025 Narrative [facility] (AMBULATORY) - 08/13/2025 8:07 PM EST Performed at: [address] [place] [id number] [employer] Worker: River Meier MD, Phone: [phone] Patient Fasting: Y Arlen Torres APRN LAB BLOOD ORDERABLES Final Res ult Performing Organization Address [facility] Co de Phone Number [facility] ([facility]) [address] [place] [address], [facility] [address] [place] [address], * Comprehensive Metabolic Panel (08/13/2025 11:08 AM EST) Pathologist [facility] Glucose 92 65 - 99 mg/dL [...] 11:0 8 AM EST 08/13/2025 Narrative [facility] (AMBULATORY) - 08/13/2025 8:07 PM EST Performed at: [address] [id number] [employer] Worker: River Meier MD, Phone: [phone] Patient Fasting: Y us Arlen Torres APRN LAB BLOOD ORDERABLES Final Res ult [facility] (AMBULATORY) [address] [place] [address], [facility] [address] [place] [address], * NPSG (06/06/2025 5:39 AM EDT) Narrative [...] CENTER ORDERABLE S Final Result SLEEP MEDICINE * Hepatitis Panel, Acute (11/28/2024 11:32 AM EDT) Hepatitis B Surface Ag Non-Reacti ve Non-Reacti ve 11/28/2024 11:31 PM EDT [facility] Hep A IgM Non-Reacti ve Non-Reacti ve 11/28/2024 11:31 PM EDT [facility] Hep B C IgM Non-Reacti ve Non-Reacti ve 11/28/2024 11:31 PM EDT [facility] Hepatitis C Ab Non-Reacti ve Non-Reacti ve 11/28/2024 11:31 PM EDT [facility] Blood Venipuncture / Unknown 11/28/2024 11:32 AM EDT 11/28/2024 11:32 AM EDT Narrative [facility] - 11/28/2024 11:31 PM EDT Results may be falsely decreased if patient taking Biotin. us Arlen Torres CAR ATTENDANT LAB BLOOD ORDERABLES Final Res ult [facility]
[address] [place] [address], from Last 3 Months or Most Recently Relevant to Health Maintenance Insurance Advance Directives * CPR (Attempt to Resuscitate) (Latest Code Status on File) Date Activated Date Inactivated Comments 12/16/2022 5:27 PM 12/17/2022 1:14 PM Question Answer Comments Code Status (Patient has no pulse and is not breathing): CPR (Attempt to Resuscitate) Medical Interventions (Patie nt has pulse or is breathing): Full Support Release to patient: Routine Release * CPR (Attempt to Resuscitate) Date Activated Date Inactivated Comments 10/19/2022 9:37 PM 10/21/2022 7:24 PM Question Answer Comments Code Status (Patient has no pulse and is not breathing): CPR (Attempt to Resuscitate) Medical Interventions (Patie nt has pulse or is breathing): Full Support Care Teams High Lift Operator Relationship Specialty Start Date End Date Lolita Saunders DO [address] [place] [address] PCP - General Family Medicine 10/19/22
--- OUTSIDE RECORDS SUMMARY | 2025-08-15 10:33 | XMS_ITS | Clinical Summary ---
Author Organization [employer] ([place], [place], [place], [place], [place]) Address [address] [place] [address] Care Team Providers Care Frit Mixer Name Role Phone Nicky Lolitadickson Randolph DO Primary Care Provider [phone] Allergies Active Allergy Reactions Criticality Noted Date [...] Date Ian rded Speak language other than Prydeinig at home Not on file 05/18/2024 Want [...] 12/18/2024 8:23 AM EDT Plan of Treatment Health Maintenance Due Date Last Done Comments HIV Screening 1996 Hepatitis C Screening 1999 Pneumococcal Vaccine: 0-49 Y ears (1 of 2 - PCV) 2000 Lipid Panel 2001 Pap Smear 2002 Breast Cancer Screening 2021 COVID-19 VACCINE ( - season) 2025 08/26/2021, 12/12/2020, 11/19/2020 Influenza Vaccine (#1) 2025 Depression Screening (12+) 12/12/2025 12/12/2024 Tobacco Cessation Counseling and Screening (12+) 12/26/2025 12/26/2024 DTAP/TDAP/TD VACCINES (2 - T d or Tdap) 08/30/2034 08/30/2024 Medical Devices Implanted Type Area Tube Room Supervisor Device Identifier Shelf Expiration Date Model / Serial / Lot Bone Putty Stimulan 5cc 620-005 - [id number] Implanted:Qty : 1 on 12/26/2024 by Shane Dobson MD at [facility] IMPLANTS N/A: Spine Lumbar BIOCOMPOSITES 08/11/2027 620-005 / / [id number] Description:Stimulan 5cc wit h added Vancomycin 500mg and Gentamicin 120mg antibiotic beads implant. Bone Vivigen Formable Cell 5cc Bl-1600-002 - [id number] Implanted:Qty : 1 on 12/26/2024 by Shane Dobson MD at [facility] IMPLANTS N/A: Spine Lumbar LIFENET:LIFENET TRANSPLANT SRV 12/07/2025 BL-1600- 002 / [id number] / Cage Eit Plif H 11mm 8d 07/06 [id number] - [id number] Implanted:Qty : 1 on 12/26/2024 by Shane Dobson MD at [facility] IMPLANTS N/A: Spine Lumbar J &J:DEPUY:DEPUY SPINE [id number] 01/09/2029 [id number] / / [id number] Scr Spne Jozef Fix 7x50mm - [id number] Implanted:Qty : 2 on 12/26/2024 by Shane Dobson MD at [facility] IMPLANTS N/A: Spine Lumbar J &J:DEPUY:DEPUY SPINE / / Mis Paulina Ply Scrw Set Ti - [id number] Implanted:Qty : 6 on 12/26/2024 by Shane Dobson MD at [facility] IMPLANTS N/A: Spine Lumbar J &J:DEPUY:DEPUY SPINE / / Pancho Pre Load 65mm [id number] - [id number] Implanted:Qty : 2 on 12/26/2024 by Shane Dobson MD at [facility] IMPLANTS N/A: Spine Lumbar J &J:DEPUY:DEPUY SPINE 1797-71- [id number] / [id number] / Insurance BLUE CROSS/BLUE SHIELD Advance Directives For more information, please contact: [phone] * Full Code (Latest Code Status on File) Date Activated Date Inactivated Comments 12/26/2024 10:56 AM 12/29/2024 3:10 PM Care Teams Frit Mixer Relationship Specialty Start Date End Date Lolita Saunders, [address] [facility] [address] [place] [address] PCP - General Family Medicine 05/25/24
== END 2025-08-15 23:59 | disposition home or self-care (01) ==
LOC: RAD 10:21
PROVIDERS: PCP Family Medicine; Visit Provider Nurse Practitioner Family
DX: M47.812 Spondylosis without myelopathy or radiculopathy, cervical region (principal)
CPT/HCPCS: 72040

== ENCOUNTER 2025-08-21 11:25 | Outpatient (CLI) | payer BC, SELFPAY ==
--- NOTE | 2025-08-21 12:00 | US_ITS ---
FINAL REPORT TECHNIQUE: Ultrasound images of the kidneys and bladder were obtained. CLINICAL HISTORY: lt flank pain / vomiting / hematuria FINDINGS: The right kidney measures 11.4 cm in length. It is normal in echogenicity. There is no hydronephrosis. The left kidney measures 11.5 cm in length. It is normal in echogenicity. There is no hydronephrosis. There is a 2.0 cm hypoechoic focus in the left kidney consistent with a benign cyst. IMPRESSION: Left renal cyst. Reviewed, Interpreted and Dictated by Gregory Lucero MD Transcribed by Tisha Gaspar Authenticated and [facility]
[2025-08-21 12:06] LABS: Hematocrit 40.0 % (37.0-47.0); Hemoglobin 13.5 g/dL (12.2-16.2); Immature Granulocytes % 0.4 %; Mean Corpuscular HGB Conc 33.8 g/dL (31.8-35.4); Mean Corpuscular Hemoglobin 31.7 pg (27.0-31.2); Mean Corpuscular Volume 93.9 fl (81-99); Nucleated Red Blood Cells % 0 %; Platelet Count 305 K/mm3 (142-424); Red Blood Count 4.26 M/mm3 (4.20-5.40); Red Cell Distribution Width-SD 43.2 fL; White Blood Count 7.8 K/mm3 (4.8-10.8)
[2025-08-21 12:36] LABS: Anion Gap 14.2 mEq/L (5-15); Blood Urea Nitrogen 14 mg/dl (7-17); Calcium 9.6 mg/dl (8.4-10.2); Carbon Dioxide 27 mmol/L (22.0-30.0); Chloride 100 mmol/L (98-107); Creatinine,Serum 0.90 mg/dl (0.52-1.04); Estimated Glomerular Filt Rate 68 ml/min (>60); GFR (African American) 82 ML/MIN (>60); Glucose 115 mg/dl (74-100); Potassium 4.2 mmoL/L (3.5-5.1); Sodium 137 mmol/L (136-145)
== END 2025-08-21 23:59 | disposition home or self-care (01) ==
LOC: RAD 11:26
PROVIDERS: PCP Family Medicine; Visit Provider Obstetrics & Gynecology
DX: N28.1 Cyst of kidney, acquired (principal); N30.11 Interstitial cystitis (chronic) with hematuria
CPT/HCPCS: 36415; 76770; 80048; 85025